=== PATIENT | male | born 1975 | race Caucasian/White ===

== ENCOUNTER 2022-10-31 15:46 | Inpatient (IN) | payer MEDICAID, SELFPAY ==
--- NOTE | ~2022-10-31 | XR_ITS ---
EXAMINATION: XR CHEST CLINICAL INFORMATION: Cough. COMPARISON: None TECHNIQUE: 2 views of the chest were obtained. FINDINGS: No significant abnormality is noted involving the heart, lungs, mediastinum, bony thorax or soft tissues. XR/XR chest 2V IMPRESSION: Unremarkable examination.
[2022-10-31 16:41] VITALS: BP 145/79; PULSE 102; RESP 18; TEMP 36.7; O2SAT 99; BMI 34.6
--- NOTE | 2022-10-31 18:15 | ED.PSYCH ---
HPI - Psych General Chief Complaint: Psychiatric Symptoms Stated Complaint: bronchitis out of meds Time Seen by Provider: 10/31/22 18:15 Source: patient Mode of arrival: ambulatory Limitations: no limitations History of Present Illness HPI Narrative: 47-year-old male presents for psychiatric evaluation, states that he is paranoid, is suicidal, and has upper respiratory symptoms consistent with bronchitis. Patient states that he has not been taking his medications as directed, and was just discharged from [facility] psychiatric unit. complaint: suicidal ideation and feels depressed Onset (ago): year(s) Duration: constant History of same: Yes Associated psychiatric symptoms: depression and suicidal ideation Associated symptoms: denies other symptoms Treatments prior to arrival: none If self harm: admits thoughts of self harm and has plan Related Data Home Medications Medication Instructions Recorded Confirmed folic acid 1 mg tablet 1 tab PO DAILY 10/31/22 10/31/22 hydroxyzine pamoate 25 mg capsule 3 cap PO BEDTIME 10/31/22 10/31/22 hydroxyzine pamoate 50 mg capsule 1 cap PO BID 10/31/22 10/31/22 Allergies Allergy/AdvReac Type Severity Reaction Status Date / Time No Known Allergies Allergy Unverified 08/17/20 15:46 [No Known Allergies*] Review of Systems Review of Systems: Constitutional: No Fever, No Chills ENT/Mouth: No Ear Pain, No Nasal Congestion, No sore throat Eyes: No Eye Pain, No Swelling, No Redness Cardiovascular: No Chest Pain, No SOB Respiratory: Positive Cough, positive wheezing, No Sputum, No Dyspnea Gastrointestinal: No Nausea, No Vomiting, No Diarrhea, No Hematochezia, No Melena Genitourinary: No Dysuria, No Urinary Frequency, No Hematuria Musculoskeletal: No Myalgias Skin: No Skin Lesions, No rash Neuro: No Weakness, No Numbness, No Paresthesias, No Dizziness, No Headache Psych: positive Anxiety, positive Depression, positive SI, positive polysubstance abuse Heme/Lymph: No Lymphadenopathy Endocrine: No Polyuria, No Polydipsia Yes all other systems are reviewed and are negative [facility] Past Medical History Attestation statement: The following information was validated with the patient. Source: old records reviewed Social History Social History Advance Directives: No Advance Directives Information Provided: No Physical Exam Vital Signs: Vital Signs: Last Vital Signs Temp 97.2 F 11/01/22 01:52 Pulse 75 11/01/22 01:52 Resp 16 11/01/22 01:52 BP 139/91 H 11/01/22 01:52 Pulse Ox 98 11/01/22 01:52 O2 Del Method 11/01/22 01:52 BMI result Body Mass Index 34.6 Appearance: Alert. Oriented X3. No acute distress. Eyes: Pupils equal, round and reactive to light. ENT: Pharynx normal. Neck: Normal inspection. Neck supple. CVS: Normal heart rate and rhythm. Pulses normal. Respiratory: No respiratory distress. Expiratory wheezing throughout. Abdomen: Soft and nontender. Obese. Skin: Skin warm and dry. Normal skin color. Normal skin turgor. Extremities: No lower extremity edema. Gait well-balanced well coordinated. Neuro: No motor deficit. No sensory deficit. Cranial nerves 2-12 intact. Course Course Course Narrative: 47-year-old male presents for upper respiratory symptoms and suicidal ideation plan. Patient was just discharged from [facility], states that he has not been using his albuterol or any other medications that were prescribed to him. Patient does smoke, and states to have a cough. Does not report fevers, chills, abdominal pain, abdominal distention, dysuria, hematuria, headaches or weakness. He does report substance use, he is to use crack cocaine. Will order labs, crisis consult and chest x-ray. Chest x-ray negative for acute findings. I did give patient albuterol treatment for expiratory wheezing. Do not feel that antibiotics are appropriate at this time for URI. Strep influenza COVID negative. Patient does have a positive UTI with esterase but is declining STI testing. I do not feel that this needs to be treated with antibiotics, as there is no urine bacteria or nitrites. 23:57 patient medically cleared, N consult pending. Physician observation at this time. MDM - Psych Differential Diagnosis Differential diagnosis: Likely suicidal ideation, depression, drug-induced psychotic disorder, acute anxiety and substance abuse Medical Records Attestation: I reviewed the patient's medical records. Lab Data Attestation: I reviewed the patient's lab results. Result diagrams: 10/31/22 18:25 10/31/22 18:25 Labs: Lab Results 10/31/22 10/31/2210/31/22 Range/Units 18:25 18:25 18:25 WBC 8.2 (4.8-10.8) X10*3/uL RBC 4.06 L (4.60-5.80) X10*6/uL Hgb 13.2 L (14.0-18.0) g/dl Hct 39.5 L (42.0-52.0) % MCV 97.3 (80.0-98.0) fL MCH 32.5 (27.0-33.0) pg MCHC 33.4 (31.0-36.0) g/dl RDW 13.2 (11.0-16.0) % Plt Count 392 (160-400) X10*3/uL MPV 9.3 L (9.4-12.4) fL Immature Gran % (Auto) 0.2 (0.0-0.4) % Neut % (Auto) 78.0 H (45-73) % Lymph % (Auto) 15.2 L (20-40) % Clayton % (Auto) 6.0 (2-11) % Eos % (Auto) 0.5 (0-4) % Baso % (Auto) 0.1 (0-2) % Lymph # (Auto) 1.2 (1.2-4.9) X10*3/uL [place] # (Auto) 0.5 (0.1-1.2) X10*3/uL Eos # (Auto) 0.0 (0.0-0.4) X10*3/uL Baso # (Auto) 0.0 (0.0-0.2) X10*3/uL Abs Immat Gran (auto) 0.02 (0.00-0.03) X10*3/uL Absolute Neuts (auto) 6.4 (2.0-8.3) x10*3/uL Absolute Nucleated RBC 0.000 (0.0-0.012) X10*3/uL Nucleated RBC % (auto) 0.0 (0.0-0.2) /100WBC Sodium 134 L (135-145) mmol/L Potassium 4.0 (3.3-5.1) mmol/L Chloride 102 (96-108) mmol/L Carbon Dioxide 27 (22-29) mmol/L Anion Gap 9 L (12-20) BUN 9 (9-16) mg/dL Creatinine 1.02 (0.5-1.4) mg/dL Estim Creat Clear Calc 94.5 Estimated GFR > 60 Random Glucose 113 (60-115) mg/dL Calcium 9.3 (8.4-10.2) mg/dL Total Bilirubin 0.2 (0.0-1.0) mg/dL AST 20 (5-37) U/L ALT 23 (0-40) U/L Alkaline Phosphatase 80 (39-117) U/L Total Protein 7.2 (6.5-8.0) g/dL Albumin 4.1 (3.5-5.0) g/dL Urine Color Urine Appearance Urine pH (5.0-9.0) Ur Specific [place] (1.005-1.025) Urine Protein (Neg-Trace) mg/dL Urine Glucose (UA) (Negative) mg/dL Urine Ketones (Negative) mg/dL Urine Blood (Negative) Urine Nitrite (Negative) Ur Leukocyte Esterase (Negative) Urine RBC (0-2) /HPF Urine WBC (0-5) /HPF Ur Squamous Epith Cells (0-2) /HPF Urine Bacteria (None Seen) Hyaline Casts (0-2) /LPF Urine Opiates Screen (Not Detect) Urine Fentanyl Screen (Not Detect) Ur Barbiturates Screen (Not Detect) Ur Phencyclidine Scrn (Not Detect) Ur Amphetamines Screen (Not Detect) U Benzodiazepines Scrn (Not Detect) Urine Cocaine Screen (Not Detect) U Marijuana (THC) Screen (Not Detect) Ethyl Alcohol < 10 mg/dL Influenza Type A (PCR) (Negative) Influenza Type B (PCR) (Negative) RSV RNA Qual (PCR) (Negative) SARS-CoV-2 RNA (RT-PCR) (Negative) S. pyogenes GrpA SHANNA (Negative) 10/31/22 10/31/22 10/31/22 Range/Units 18:26 18:27 19:20 WBC (4.8-10.8) X10*3/uL RBC (4.60-5.80) X10*6/uL Hgb (14.0-18.0) g/dl Hct (42.0-52.0) % MCV (80.0-98.0) fL MCH (27.0-33.0) pg MCHC (31.0-36.0) g/dl RDW (11.0-16.0) % Plt Count (160-400) X10*3/uL MPV (9.4-12.4) fL Immature Gran % (Auto) (0.0-0.4) % Neut % (Auto) (45-73) % Lymph % (Auto) (20-40) % [place] % (Auto) (2-11) % Eos % (Auto) (0-4) % Baso % (Auto) (0-2) % Lymph # (Auto) (1.2-4.9) X10*3/uL [place] # (Auto) (0.1-1.2) X10*3/uL Eos # (Auto) (0.0-0.4) X10*3/uL Baso # (Auto) (0.0-0.2) X10*3/uL Abs Immat Gran (auto) (0.00-0.03) X10*3/uL Absolute Neuts (auto) (2.0-8.3) x10*3/uL Absolute Nucleated RBC (0.0-0.012) X10*3/uL Nucleated RBC % (auto) (0.0-0.2) /100WBC Sodium (135-145) mmol/L Potassium (3.3-5.1) mmol/L Chloride (96-108) mmol/L Carbon Dioxide (22-29) mmol/L Anion Gap (12-20) BUN (9-16) mg/dL Creatinine (0.5-1.4) mg/dL Estim Creat Clear Calc Estimated GFR Random Glucose (60-115) mg/dL Calcium (8.4-10.2) mg/dL Total Bilirubin (0.0-1.0) mg/dL AST (5-37) U/L ALT (0-40) U/L Alkaline Phosphatase (39-117) U/L Total Protein (6.5-8.0) g/dL Albumin (3.5-5.0) g/dL Urine Color Yellow Urine Appearance Clear Urine pH 6.5 (5.0-9.0) Ur Specific [place] 1.020 (1.005-1.025) Urine Protein Negative (Neg-Trace) mg/dL Urine Glucose (UA) Negative (Negative) mg/dL Urine Ketones Trace (Negative) mg/dL Urine Blood Negative (Negative) Urine Nitrite Negative (Negative) Ur Leukocyte Esterase Small (1+) H (Negative) Urine RBC 0-2 (0-2) /HPF Urine WBC 6-10 H (0-5) /HPF Ur Squamous Epith Cells 0-2 (0-2) /HPF Urine Bacteria None Seen (None Seen) Hyaline Casts 0-2 (0-2) /LPF Urine Opiates Screen (Not Detect) Urine Fentanyl Screen (Not Detect) Ur Barbiturates Screen (Not Detect) Ur Phencyclidine Scrn (Not Detect) Ur Amphetamines Screen (Not Detect) U Benzodiazepines Scrn (Not Detect) Urine Cocaine Screen (Not Detect) U Marijuana (THC) Screen (Not Detect) Ethyl Alcohol mg/dL Influenza Type A (PCR) NEGATIVE (Negative) Influenza Type B (PCR) NEGATIVE (Negative) RSV RNA Qual (PCR) NEGATIVE (Negative) SARS-CoV-2 RNA (RT-PCR) NEGATIVE (Negative) S. pyogenes GrpA SHANNA Negative (Negative) 10/31/22 Range/Units 19:20 WBC (4.8-10.8) X10*3/uL RBC (4.60-5.80) X10*6/uL Hgb (14.0-18.0) g/dl Hct (42.0-52.0) % MCV (80.0-98.0) fL MCH (27.0-33.0) pg MCHC (31.0-36.0) g/dl RDW (11.0-16.0) % Plt Count (160-400) X10*3/uL MPV (9.4-12.4) fL Immature Gran % (Auto) (0.0-0.4) % Neut % (Auto) (45-73) % Lymph % (Auto) (20-40) % Clayton % (Auto) (2-11) % Eos % (Auto) (0-4) % Baso % (Auto) (0-2) % Lymph # (Auto) (1.2-4.9) X10*3/uL Clayton # (Auto) (0.1-1.2) X10*3/uL Eos # (Auto) (0.0-0.4) X10*3/uL Baso # (Auto) (0.0-0.2) X10*3/uL Abs Immat Gran (auto) (0.00-0.03) X10*3/uL Absolute Neuts (auto) (2.0-8.3) x10*3/uL Absolute Nucleated RBC (0.0-0.012) X10*3/uL Nucleated RBC % (auto) (0.0-0.2) /100WBC Sodium (135-145) mmol/L Potassium (3.3-5.1) mmol/L Chloride (96-108) mmol/L Carbon Dioxide (22-29) mmol/L Anion Gap (12-20) BUN (9-16) mg/dL Creatinine (0.5-1.4) mg/dL Estim Creat Clear Calc Estimated GFR Random Glucose (60-115) mg/dL Calcium (8.4-10.2) mg/dL Total Bilirubin (0.0-1.0) mg/dL AST (5-37) U/L ALT (0-40) U/L Alkaline Phosphatase (39-117) U/L Total Protein (6.5-8.0) g/dL Albumin (3.5-5.0) g/dL Urine Color Urine Appearance Urine pH (5.0-9.0) Ur Specific [place] (1.005-1.025) Urine Protein (Neg-Trace) mg/dL Urine Glucose (UA) (Negative) mg/dL Urine Ketones (Negative) mg/dL Urine Blood (Negative) Urine Nitrite (Negative) Ur Leukocyte Esterase (Negative) Urine RBC (0-2) /HPF Urine WBC (0-5) /HPF Ur Squamous Epith Cells (0-2) /HPF Urine Bacteria (None Seen) Hyaline Casts (0-2) /LPF Urine Opiates Screen Not Detected (Not Detect) Urine Fentanyl Screen Not Detected (Not Detect) Ur Barbiturates Screen Not Detected (Not Detect) Ur Phencyclidine Scrn Not Detected (Not Detect) Ur Amphetamines Screen Not Detected (Not Detect) U Benzodiazepines Scrn Not Detected (Not Detect) Urine Cocaine Screen POSITIVE H (Not Detect) U Marijuana (THC) Screen POSITIVE H (Not Detect) Ethyl Alcohol mg/dL Influenza Type A (PCR) (Negative) Influenza Type B (PCR) (Negative) RSV RNA Qual (PCR) (Negative) SARS-CoV-2 RNA (RT-PCR) (Negative) S. pyogenes GrpA SHANNA (Negative) Imaging Data Chest x-ray: Attestation: I personally reviewed and interpreted this imaging study as follows: Radiologist's impression: EXAMINATION: XR CHEST CLINICAL INFORMATION: Cough. COMPARISON: None TECHNIQUE: 2 views of the chest were obtained. FINDINGS: No significant abnormality is noted involving the heart, lungs, mediastinum, bony thorax or soft tissues. XR/XR chest 2V IMPRESSION: Unremarkable examination. Discharge Plan Discharge Clinical Impression: Depression, Substance abuse Patient Disposition: Still a Patient Instructions: Depression (ED), Polysubstance Abuse (ED) Additional Instructions: Consider detox. Follow-up with outpatient psychiatry Thank you for choosing this emergency department for evaluation. Please follow-up with primary care physician as needed. Return to the emergency department for any new, concerning, or worsening symptoms. Prescriptions: No Action hydroxyzine pamoate 50 mg capsule 1 cap PO BID folic acid 1 mg tablet 1 tab PO DAILY hydroxyzine pamoate 25 mg capsule 3 cap PO BEDTIME Interventions: [place]-Suicide Risk Severity Scale Last Done: 10/31/22 23:41
[2022-10-31 18:32] LABS: MANUAL DIFF FLAG NO
[2022-10-31 18:40] LABS: Basophils Percent Auto 0.1 % (0-2); Eosinophils Percent Auto 0.5 % (0-4); Hematocrit 39.5 % (42.0-52.0); Hemoglobin 13.2 g/dl (14.0-18.0); Imm Gran Abs Auto 0.02 X10*3/uL (0.00-0.03); Imm Gran Pct Auto 0.2 % (0.0-0.4); Lymphocytes Absolute Auto 1.2 X10*3/uL (1.2-4.9); Lymphocytes Percent Auto 15.2 % (20-40); Mean Corpuscular HGB Conc 33.4 g/dl (31.0-36.0); Mean Corpuscular Hemoglobin 32.5 pg (27.0-33.0); Mean Corpuscular Volume 97.3 fL (80.0-98.0); Mean Platelet Volume 9.3 fL (9.4-12.4); Monocytes Absolute Auto 0.5 X10*3/uL (0.1-1.2); Neutrophils Absolute Auto 6.4 x10*3/uL (2.0-8.3); Platelet Count 392 X10*3/uL (160-400); Red Blood Count 4.06 X10*6/uL (4.60-5.80); Red Cell Distribution Width 13.2 % (11.0-16.0); White Blood Count 8.2 X10*3/uL (4.8-10.8)
[2022-10-31 18:43] LABS: Strep A Nucleic Acid Negative (Negative)
[2022-10-31 18:49] LABS: Ethanol < 10 mg/dL
[2022-10-31 18:51] LABS: Alanine Aminotransferase 23 U/L (0-40); Albumin Level 4.1 g/dL (3.5-5.0); Alkaline Phosphatase 80 U/L (39-117); Anion Gap 9 (12-20); Aspartate Amino Transferase 20 U/L (5-37); Bilirubin Total 0.2 mg/dL (0.0-1.0); Blood Urea Nitrogen 9 mg/dL (9-16); Calcium 9.3 mg/dL (8.4-10.2); Carbon Dioxide 27 mmol/L (22-29); Chloride 102 mmol/L (96-108); Creatinine Clr Calc Pharmacy 94.5; Estimated Glomerular Filt Rate > 60; Glucose Random 113 mg/dL (60-115); Sodium 134 mmol/L (135-145); Total Protein 7.2 g/dL (6.5-8.0)
[2022-10-31 19:12] LABS: Influenza A PCR NEGATIVE (Negative); Influenza B PCR NEGATIVE (Negative); Resp Syncy Virus RNA Qual PCR NEGATIVE (Negative); SARS COV2 PCR INHOUSE NEGATIVE (Negative)
[2022-10-31 19:27] LABS: Appearance Urine Clear; Color Urine Yellow; Glucose Urine UA Negative (Negative); Leukocyte Esterase Urine Small (1+) (Negative); Nitrite Urine Negative (Negative); PH 6.5 (5.0-9.0); UMIC TRIGGER UA YES; Urine Blood Negative (Negative); Urine Ketones Trace mg/dL (Negative); Urine Protein Negative (Neg-Trace)
[2022-10-31 19:32] LABS: Bacteria Urine None Seen (None Seen); Hyaline Casts Urine 0-2 /LPF (0-2); RBC Urine 0-2 /HPF (0-2); Squamous Epithelial Cell Urine 0-2 /HPF (0-2)
[2022-10-31 19:40] LABS: Amphetamine Screen Urine Not Detected (Not Detect); Barbiturates, Urine Not Detected (Not Detect); Benzodiazepines Screen Urine Not Detected (Not Detect); Cannabinoid Screen Urine POSITIVE (Not Detect); Cocaine Screen Urine POSITIVE (Not Detect); Fentanyl, urine Not Detected (Not Detect); Opiate Screen Urine Not Detected (Not Detect); Phencyclidine Screen Urine Not Detected (Not Detect)
[2022-11-01 01:52] VITALS: BP 139/91; PULSE 75; RESP 16; TEMP 36.2; O2SAT 98
--- NOTE | 2022-11-01 06:41 | PC.NURSE ---
Patient slept through the night, no distress observed/reported, [facility] referral completed/confirmed/pending ETA, med rec completed/JAN active, behavior non concerning at this time, VSS, will continue to monitor.
[2022-11-01] MEDS: Albuterol Sulfate 90 MCG 8 GM INHALER 1 PUFF INHALE ×2 (09:07→14:51)
[2022-11-01] MEDS: hydrOXYzine HCL 50 MG TABLET PO ×2 (09:07→14:51)
[2022-11-01] MEDS: Folic Acid 1 MG TABLET PO (09:07)
[2022-11-01] MEDS: Nicotine Polacrilex 2 MG GUM BUCCAL (10:38)
--- NOTE | 2022-11-01 12:05 | ECG_ITS ---
Test Reason : CLEARANCE Blood Pressure : / mmHG Vent. Rate : 069 BPM Atrial Rate : 069 BPM P-R Int : 118 ms QRS Dur : 084 ms QT Int : 384 ms P-R-T Axes : 044 051 034 degrees QTc Int : 411 ms Normal sinus rhythm Normal ECG No previous ECGs available Referred By: Rustam Watson Electronically Signed By:Greg Shepard
[2022-11-01 13:48] VITALS: BP 121/84; PULSE 83; RESP 16; O2SAT 98
[2022-11-01 15:59] LABS: Estimated Average Glucose 100 mg/dL; Hemoglobin A1c % 5.1 %
[2022-11-01] MEDS: Omeprazole 20 MG CAPSULE.DR PO (17:37)
[2022-11-01 18:00] VITALS: BP 138/86; PULSE 86; RESP 14; TEMP 36.1
[2022-11-01] MEDS: Loratadine 10 MG TABLET PO (18:28)
[2022-11-01] MEDS: Nicotine Polacrilex 2 MG GUM 4 MG BUCCAL (18:48)
[2022-11-01] MEDS: Fluticasone Propionate Nasal 16 GM SPRAY 1 SPRAY NOSTRIL-B (18:48)
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
[2022-11-01] MEDS: hydrOXYzine HCL 25 MG TABLET 75 MG PO (21:12)
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
[2022-11-02 07:55] LABS: Cholesterol 165 mg/dL; HDL Cholesterol 41 mg/dL; LDL Cholesterol Calculated 102 mg/dl; Triglycerides 111 mg/dL
[2022-11-02 10:01] VITALS: BP 127/82; PULSE 90; RESP 18; TEMP 36.6; O2SAT 98
[2022-11-02] MEDS: Loratadine 10 MG TABLET PO (10:07)
[2022-11-02] MEDS: Folic Acid 1 MG TABLET PO (10:09)
[2022-11-02] MEDS: hydrOXYzine HCL 50 MG TABLET PO ×2 (10:10→13:41)
[2022-11-02] MEDS: Fluticasone Propionate Nasal 16 GM SPRAY 1 SPRAY NOSTRIL-B (10:11)
[2022-11-02] MEDS: Artificial Tears 15 ML DROPS 2 DROP EYE-LEFT ×2 (10:11→14:15)
[2022-11-02] MEDS: Albuterol Sulfate 90 MCG 8 GM INHALER 1 PUFF INHALE ×2 (10:27→17:21)
[2022-11-02] MEDS: Perphenazine 4 MG TABLET PO ×2 (12:02→20:04)
[2022-11-02] MEDS: Nicotine Polacrilex 2 MG GUM 4 MG BUCCAL ×3 (12:02→20:08)
[2022-11-02 12:07] VITALS: BP 120/81; PULSE 103; TEMP 36.5
[2022-11-02 16:22] VITALS: BP 136/57; PULSE 96; RESP 20; TEMP 36.4; O2SAT 99
[2022-11-02 18:29] VITALS: BP 126/68; PULSE 90; RESP 20; TEMP 36.7; O2SAT 99
[2022-11-02] MEDS: hydrOXYzine HCL 25 MG TABLET 75 MG PO (20:04)
[2022-11-02] MEDS: Albuterol Sulfate 90 MCG 8 GM INHALER 2 PUFF INHALE (21:08)
[2022-11-03 06:00] VITALS: BP 112/87; PULSE 95; RESP 16; TEMP 36.8; O2SAT 99
[2022-11-03] MEDS: Sodium Chloride 0.65 % Nasal 44 ML SPRBTL 1 SPRAY NOSTRIL-B ×5 (06:24→19:07)
[2022-11-03] MEDS: Loratadine 10 MG TABLET PO (08:24)
[2022-11-03] MEDS: Omeprazole 20 MG CAPSULE.DR PO (08:24)
[2022-11-03] MEDS: Folic Acid 1 MG TABLET PO (08:24)
[2022-11-03] MEDS: Perphenazine 4 MG TABLET PO ×2 (08:24→19:08)
[2022-11-03] MEDS: hydrOXYzine HCL 50 MG TABLET PO ×2 (08:24→14:10)
--- NOTE | 2022-11-03 09:38 | HO.PSYCHPN ---
Subjective Subjective Date of Service: 11/03/22 Reason For Visit: SI paranoia Subjective Notes: Conditional Voluntary Healthcare Proxy: No Guardianship: No Medical Problems Affecting Mental Status: No Interim History: Feels trilafon might be helping but feels congestion- wonders if could be s/e covid test negative- may have cold Also asked for valium- told him that is not a good idea Medication Compliance: Yes Side effects from medications: Yes (? congestion) Attending Groups: Yes Review of Systems Review of Systems: co congestion in chest area Mental Status Exam Mental Status Exam Narrative: casually dressed, good eye contact less hyper today Patient Appearance: Well Grooomed and Appropriate Patient Orientation: Person, Place, Time and Situation Level of Consciousness: Awake and Appropriate Patient Behavior: Appropriate, Talkative and Hyperactive Mood Description: Calm Affect Description: Euphoric Patient Cognition Impaired: No Ability to Follow Directions: Good Speech Pattern: Clear Hallucinations: None Delusions: Paranoid Ideation Thought Process: Intact and Racing Thought Content: positive for Tangential, positive for Suicidal Ideation (not since inpatient) and positive for Homicidal Ideation (still might have due to PI) Depressive Symptoms: Muscle Tension, Difficulty Sleeping and Thoughts of /Suicide Abnormal Motor Activity Signs and Symptoms: Restlessness Judgement: Fair Diagnostics Vital Signs (24Hr): Vital Signs - 24 hr 11/02/22 10:01 11/02/22 12:07 11/02/22 16:22 Temperature 97.8 F 97.7 F 97.6 F Pulse Rate 90 103 H 96 Respiratory Rate 18 20 Blood Pressure 127/82 120/81 136/57 L Pulse Oximetry 98 99 Oxygen Delivery Method Room Air Room Air 11/02/22 18:29 11/03/22 06:00 Temperature 98.1 F 98.3 F Pulse Rate 90 95 Respiratory Rate 20 16 Blood Pressure 126/68 112/87 Pulse Oximetry 99 99 Oxygen Delivery Method Room Air Room Air BMI result Body Mass Index 34.6 Labs Results: 10/31/22 18:25 10/31/22 18:25 Labs: Laboratory Results - last 48 hr 10/31/22 11/02/22 18:25 07:09 Estimat Average Glucose 100 Hemoglobin A1c % 5.1 Triglycerides 111 Cholesterol 165 LDL Cholesterol, Calc 102 HDL Cholesterol 41 Imaging Radiology Impressions: ITS Impressions Chest X-Ray 10/31/22 20:27 IMPRESSION: Unremarkable examination. Medications Medications Current Medications Acetaminophen (Acetaminophen 325 Mg Tablet) 650 mg PO Q6H PRN PRN Reason: Headache/Pain Mild Scale (1-3) Al Hydroxide/Mg Hydroxide (Magnesium Hydrox/Alum Hydrox 30 Ml Oral.Susp) 30 ml PO Q6H PRN PRN Reason: Heartburn/Nausea Albuterol Sulfate (Albuterol Sulfate 90 Mcg 8 Gm Inhaler) 2 puff INHALE Q4H PRN PRN Reason: Shortness of Breath Last Admin: 11/02/22 21:08 Dose: 2 puff Artificial Tears (Artificial Tears 15 Ml Drops) 2 drop EYE-LEFT Q4H PRN PRN Reason: Dry Eyes Last Admin: 11/02/22 14:15 Dose: 2 drop Fluticasone Propionate (Fluticasone Propionate Nasal 16 Gm [place]) 2 spray NOSTRIL-B DAILY PRN PRN Reason: nasal congetstion Folic Acid (Folic Acid 1 Mg Tablet) 1 mg PO DAILY [facility] Last Admin: 11/03/22 08:24 Dose: 1 mg Hydroxyzine HCl (Hydroxyzine Hcl 25 Mg Tablet) 75 mg PO BEDTIME [facility] Last Admin: 11/02/22 20:04 Dose: 75 mg Hydroxyzine HCl (Hydroxyzine Hcl 50 Mg Tablet) 50 mg PO BID@0900,1400 [facility] Last Admin: 11/03/22 08:24 Dose: 50 mg Loratadine (Loratadine 10 Mg Tablet) 10 mg PO DAILY [facility] Last Admin: 11/03/22 08:24 Dose: 10 mg Lorazepam (Lorazepam 1 Mg Tablet) 1 mg PO Q2H PRN PRN Reason: CIWA 6-10 Lorazepam (Lorazepam 1 Mg Tablet) 2 mg PO Q2H PRN PRN Reason: CIWA 11 and above Magnesium Hydroxide (Milk Of Magnesia 30 Ml Oral.Susp) 30 ml PO DAILY PRN PRN Reason: Constipation Multi-Ingred Cream/Lotion/Oil/Oint (Artificial Tears Ophth Oint 3.5 Gm Tube) 1 appl EYE-LEFT TID PRN; Protocol PRN Reason: eye drynes Nicotine (Nicotine 21 Mg Patch.Td24) 21 mg TRANSDERMA DAILY PRN PRN Reason: smoking cessation Nicotine Polacrilex (Nicotine Polacrilex 2 Mg Gum) 4 mg BUCCAL Q2H PRN PRN Reason: Nicotine Cravings Last Admin: 11/02/22 20:08 Dose: 4 mg Omeprazole (Omeprazole 20 Mg Capsule.Dr) 20 mg PO DAILY [facility] Last Admin: 11/03/22 08:24 Dose: 20 mg Perphenazine (Perphenazine 4 Mg Tablet) 4 mg PO BID [facility] Last Admin: 11/03/22 08:24 Dose: 4 mg Sodium Chloride (Sodium Chloride 0.65 % Nasal 44 Ml Sprbtl) 1 spray NOSTRIL-B Q1H PRN PRN Reason: Congestion Last Admin: 11/03/22 08:29 Dose: 1 spray Trazodone HCl (Trazodone Hcl 50 Mg Tablet) 50 mg PO BEDTIME PRN PRN Reason: Insomnia Allergies Allergies Allergy/AdvReac Type Severity Reaction Status Date / Time No Known Allergies Allergy Unverified 11/02/22 20:59 [No Known Allergies*] Assessment & Plan Assessment & Plan (1) Substance abuse: Status: Acute Code(s): F19.10 - Other psychoactive substance abuse, uncomplicated Assessment and Plan: urine not positive for opiate- watch for opiate withdrawl? 11/03 dced ciwa - no sys of withdrawl at all (2) Mood disorder: Status: Acute Code(s): F39 - Unspecified mood [affective] disorder Assessment and Plan: add in perphenazine- for pi (3) Post-traumatic stress disorder, chronic: Status: Acute Code(s): F43.12 - Post-traumatic stress disorder, chronic Assessment and Plan: vistaril seems to help this somewhat Plan add perphenazine for PI find out dosing/timing of monthly abilify Group/mileu therapy Social work assessment after weekend for resource building I spent minutes with the patient and/or on the patient floor today, greater than?50% of which was spent counseling/coordinating care. Patient educated on: medication risk/benefits Informed Consent: understands Reason for contiued inpatient stay Substantial Risk for: harm to others and rapid decompensation
[2022-11-03 10:27] LABS: COVID-19 Test Negative (Negative); IDNOW Serial# 16C4AD1C
[2022-11-03] MEDS: Nicotine Polacrilex 2 MG GUM 4 MG BUCCAL ×2 (11:59→19:08)
[2022-11-03] MEDS: Artificial Tears 15 ML DROPS 2 DROP EYE-LEFT ×2 (11:59→19:07)
[2022-11-03] MEDS: Albuterol Sulfate 90 MCG 8 GM INHALER 2 PUFF INHALE ×2 (14:20→19:09)
[2022-11-03 18:00] VITALS: BP 142/85; PULSE 105; TEMP 36.4; O2SAT 98
[2022-11-03] MEDS: hydrOXYzine HCL 25 MG TABLET 75 MG PO (19:08)
--- NOTE | 2022-11-03 20:13 | HO.ADDICTCON ---
History of Present Illness Date of Service: 11/03/2022 Chief Complaint: SI paranoia Reason for Consult: NEFTALI--considering MOUD HPI Narrative: Patient is a 47 year old male currently admitted to unit with reported SI and paranoia in the context of recurrence of drug use. Consult requested as patient expressed interest in starting buprenorphine to address opioid use. Patient seen on M5. Pleasant and engaged in interview. He reports he has struggled with alcohol, cocaine and heroin for most of his life. Reports multiple admissions to [facility] for ETOH and opioids, but has never been on medications for OUD. He states that he has been increasing use recently and does not like that he is experiencing cravings to use and feeling mild withdrawal sx when he is not using(upset stomach and restlessness). Using appox 5 bags IN. Denies any history of IVDU. Denies any history of OD. States his last use of opioids was prior to [facility] admission in October. Past Psychiatric History: [facility] - started on abilify monthly injection denies hx of od felt meds [facility] had him on vistaril and abilify where helpful for insomnia, anxiety and paranoia only does mj with meds, won't drink on meds Review of Systems Constitutional: Reports as per HPI and Reports no additional constitutional complaints Diagnostics Vital Signs (24Hr): Vital Signs - 24 hr 11/03/22 06:00 Temperature 98.3 F Pulse Rate 95 Respiratory Rate 16 Blood Pressure 112/87 Pulse Oximetry 99 Oxygen Delivery Method Room Air BMI result Body Mass Index 34.6 Labs Results: 10/31/22 18:25 10/31/22 18:25 Labs: Laboratory Results - last 48 hr 11/02/22 11/03/22 07:09 10:10 Triglycerides 111 Cholesterol 165 LDL Cholesterol, Calc 102 HDL Cholesterol 41 COVID-19 ([facility]) Negative COVID-19 Clin Com See Note Imaging Radiology Impressions: ITS Impressions Chest X-Ray 10/31/22 20:27 IMPRESSION: Unremarkable examination. Mental Status Exam Mental Status Exam Patient Appearance: Well Grooomed and Appropriate Level of Consciousness: Awake and Appropriate Patient Behavior: Appropriate and Talkative Mood Description: Calm Affect Description: Calm Medications Medications Current Medications Acetaminophen (Acetaminophen 325 Mg Tablet) 650 mg PO Q6H PRN PRN Reason: Headache/Pain Mild Scale (1-3) Al Hydroxide/Mg Hydroxide (Magnesium Hydrox/Alum Hydrox 30 Ml Oral.Susp) 30 ml PO Q6H PRN PRN Reason: Heartburn/Nausea Albuterol Sulfate (Albuterol Sulfate 90 Mcg 8 Gm Inhaler) 2 puff INHALE Q4H PRN PRN Reason: Shortness of Breath Last Admin: 11/03/22 19:09 Dose: 2 puff Artificial Tears (Artificial Tears 15 Ml Drops) 2 drop EYE-LEFT Q4H PRN PRN Reason: Dry Eyes Last Admin: 11/03/22 19:07 Dose: 2 drop Fluticasone Propionate (Fluticasone Propionate Nasal 16 Gm [place]) 2 spray NOSTRIL-B DAILY PRN PRN Reason: nasal congetstion Folic Acid (Folic Acid 1 Mg Tablet) 1 mg PO DAILY [facility] Last Admin: 11/03/22 08:24 Dose: 1 mg Hydroxyzine HCl (Hydroxyzine Hcl 25 Mg Tablet) 75 mg PO BEDTIME [facility] Last Admin: 11/03/22 19:08 Dose: 75 mg Hydroxyzine HCl (Hydroxyzine Hcl 50 Mg Tablet) 50 mg PO BID@0900,1400 [facility] Last Admin: 11/03/22 14:10 Dose: 50 mg Loratadine (Loratadine 10 Mg Tablet) 10 mg PO DAILY [facility] Last Admin: 11/03/22 08:24 Dose: 10 mg Lorazepam (Lorazepam 1 Mg Tablet) 1 mg PO Q2H PRN PRN Reason: CIWA 6-10 Lorazepam (Lorazepam 1 Mg Tablet) 2 mg PO Q2H PRN PRN Reason: CIWA 11 and above Magnesium Hydroxide (Milk Of Magnesia 30 Ml Oral.Susp) 30 ml PO DAILY PRN PRN Reason: Constipation Multi-Ingred Cream/Lotion/Oil/Oint (Artificial Tears Ophth Oint 3.5 Gm Tube) 1 appl EYE-LEFT TID PRN; Protocol PRN Reason: eye drynes Nicotine (Nicotine 21 Mg Patch.Td24) 21 mg TRANSDERMA DAILY PRN PRN Reason: smoking cessation Nicotine Polacrilex (Nicotine Polacrilex 2 Mg Gum) 4 mg BUCCAL Q2H PRN PRN Reason: Nicotine Cravings Last Admin: 11/03/22 19:08 Dose: 4 mg Omeprazole (Omeprazole 20 Mg Capsule.Dr) 20 mg PO DAILY [facility] Last Admin: 11/03/22 08:24 Dose: 20 mg Perphenazine (Perphenazine 4 Mg Tablet) 4 mg PO BID [facility] Last Admin: 11/03/22 19:08 Dose: 4 mg Sodium Chloride (Sodium Chloride 0.65 % Nasal 44 Ml Sprbtl) 1 spray NOSTRIL-B Q1H PRN PRN Reason: Congestion Last Admin: 11/03/22 19:07 Dose: 1 spray Trazodone HCl (Trazodone Hcl 50 Mg Tablet) 50 mg PO BEDTIME PRN PRN Reason: Insomnia Allergies Allergies Allergy/AdvReac Type Severity Reaction Status Date / Time No Known Allergies Allergy Unverified 11/02/22 20:59 [No Known Allergies*] Assessment & Plan Assessment & Plan (1) Opioid use disorder: Status: Acute Code(s): F11.90 - Opioid use, unspecified, uncomplicated Assessment and Plan: discussed suboxone --indications, side effects, dosing, goals of treatment. Discussed low dosing due to reported intermittent use. Pateint verbalized undertanding suboxone 2mg QD to start. if patient appears sedated or reporting dizziness after dose, please hold next dose and notify this technical document writer. will reassess as needed I spent ___45___ minutes with the patient and/or on the patient floor today, greater than?50% of which was spent counseling/coordinating care. [facility] Social History Social History Household Members: None Housing: Homeless Do you presently have visiting nurse or other home services: No Alcohol intake: current Patient Tobacco Use Status: Current everyday Tobacco user Tobacco use type: Cigarette Cigarettes Per Day: 1 Smoked in Last 30 Days: Yes Patient Interested in Nicotine Replacement: Yes Patient Given Instructions on How to Stop Smoking: Yes Date Education Initiated: 11/01/22 Second Hand Smoke Exposure: Yes Use of substances other than those prescribed or required for medical reasons: Yes Substance Use Type: Crack/Cocaine, Heroin, Marijuana and Opiates Substance Use Frequency: Chronic Longstanding Last Used Substance: Just Prior to Admission Last Used Substance Other:: 10/31/2022 Currently Displaying Signs/Symptoms of Drug Intoxication Withdrawal: No Any prior treatment program specific to substance use: No Have you been hit, kicked, punched, or otherwise hurt by someone within the past year? If so, by whom?: No Do you feel safe in your current relationship?: No Is there a partner from a previous relationship who is making you feel unsafe now?: No Are you made to feel afraid or neglected: No Advance Directives: No Advance Directives Information Provided: No Healthcare Proxy: No Guardian: No Do you have thoughts of harming others: None Do you have a plan to hurt others: No Plan Recently lost weight without trying: No Nutrition Risks: No Nutritional Risk Poor oral hygiene: No
[2022-11-04 06:00] VITALS: BP 129/91; PULSE 91; RESP 18
[2022-11-04] MEDS: Folic Acid 1 MG TABLET PO (08:17)
[2022-11-04] MEDS: Omeprazole 20 MG CAPSULE.DR PO (08:17)
[2022-11-04] MEDS: hydrOXYzine HCL 50 MG TABLET PO ×2 (08:17→14:09)
[2022-11-04] MEDS: Loratadine 10 MG TABLET PO (08:18)
[2022-11-04] MEDS: Buprenorphine/Naloxone 2/0.5mg FILM 1 FILM SUBLINGUAL (08:18)
[2022-11-04] MEDS: Perphenazine 4 MG TABLET PO ×2 (08:19→19:44)
[2022-11-04] MEDS: Artificial Tears 15 ML DROPS 2 DROP EYE-LEFT ×2 (08:42→14:38)
[2022-11-04] MEDS: Sodium Chloride 0.65 % Nasal 44 ML SPRBTL 1 SPRAY NOSTRIL-B ×3 (08:42→19:44)
[2022-11-04] MEDS: Albuterol Sulfate 90 MCG 8 GM INHALER 2 PUFF INHALE (08:42)
--- NOTE | 2022-11-04 10:31 | HO.PSYCHPN ---
Subjective Subjective Date of Service: 11/04/22 Reason For Visit: SI paranoia Interim History: Patient reports he is in a good mood Patient denies any SI or HI and saying that all have resolved.? Denies any withdrawal and says that he was not drinking this past week at all just that he smoked cannabis which was laced.? Patient reports that starting perphenazine was very helpful and has resolved his paranoia.? Patient described his history of paranoid thinking and it largely seems to be due to history of trauma starting in childhood and ongoing throughout his life And much of it seems to be hypervigilence; there may be an organic component as well but it is difficult to tell.? Hypertrichologist discussed risks/side-effects of med regimen, including increased risks of being on both Abilify and perphenazine and whether or not perphenazine which she finds very helpful could be enough for him.? He got Abilify Maintena IM about a week ago.? He says that after this month he will discuss with outpatient provider but perhaps he will just stick with perphenazine and see if that is enough.? Patient overall sleeps well enough.? He finds that he does wake up early in the morning and has a hard time falling back to sleep for which she agrees to have a p.r.n. dose of hydroxyzine.? Discussed history of diagnosis of bipolar disorder and patient does not seem to have discrete manic episodes, independent of substance abuse. Minimal hx of AVH which sounds to be mood congruent and he will Sometimes see a shadow out of the corner of his eye or think he hears his name called. Hypertrichologist reviewed labs with patient. Mental Status Exam Mental Status Exam Narrative: Pt is alert and oriented; behavior is cooperative, friendly and calm; patient is not in distress; dressed in casual attire, wearing glasses; adequate hygiene; mood is described as good and affect congruent, bright, calm, friendly; eye contact appropriate; Speech is normal rate, volume and prosody and not pressured; no psychomotor agitation/retardation present; thought process is organized and goal directed; Thought content is on tx; otherwise pertinent to relevant topics and without any delusional content, paranoid ideations or grandiosity; denies any SI/HI. There is no evidence of perceptual disturbance. Patients insight and judgment appear intact. Diagnostics Vital Signs (24Hr): Vital Signs - 24 hr 11/03/22 18:00 11/04/22 06:00 Temperature 97.6 F Pulse Rate 105 H 91 Respiratory Rate 18 Blood Pressure 142/85 H 129/91 H Pulse Oximetry 98 Oxygen Delivery Method Room Air Room Air BMI result Body Mass Index 34.6 Labs Results: 10/31/22 18:25 10/31/22 18:25 Labs: Laboratory Results - last 48 hr 11/03/22 10:10 COVID-19 ([facility]) Negative COVID-19 Clin Com See Note Imaging Radiology Impressions: ITS Impressions Chest X-Ray 10/31/22 20:27 IMPRESSION: Unremarkable examination. Medications Medications Current Medications Acetaminophen (Acetaminophen 325 Mg Tablet) 650 mg PO Q6H PRN PRN Reason: Headache/Pain Mild Scale (1-3) Al Hydroxide/Mg Hydroxide (Magnesium Hydrox/Alum Hydrox 30 Ml Oral.Susp) 30 ml PO Q6H PRN PRN Reason: Heartburn/Nausea Albuterol Sulfate (Albuterol Sulfate 90 Mcg 8 Gm Inhaler) 2 puff INHALE Q4H PRN PRN Reason: Shortness of Breath Last Admin: 11/04/22 08:42 Dose: 2 puff Artificial Tears (Artificial Tears 15 Ml Drops) 2 drop EYE-LEFT Q4H PRN PRN Reason: Dry Eyes Last Admin: 11/04/22 08:42 Dose: 2 drop Buprenorphine/Naloxone (Buprenorphine/Naloxone 2/0.5mg Film) 1 film SUBLINGUAL DAILY [facility] Last Admin: 11/04/22 08:18 Dose: 1 film Fluticasone Propionate (Fluticasone Propionate Nasal 16 Gm [place]) 2 spray NOSTRIL-B DAILY PRN PRN Reason: nasal congetstion Folic Acid (Folic Acid 1 Mg Tablet) 1 mg PO DAILY [facility] Last Admin: 11/04/22 08:17 Dose: 1 mg Hydroxyzine HCl (Hydroxyzine Hcl 25 Mg Tablet) 75 mg PO BEDTIME [facility] Last Admin: 11/03/22 19:08 Dose: 75 mg Hydroxyzine HCl (Hydroxyzine Hcl 50 Mg Tablet) 50 mg PO BID@0900,1400 [facility] Last Admin: 11/04/22 08:17 Dose: 50 mg Loratadine (Loratadine 10 Mg Tablet) 10 mg PO DAILY [facility] Last Admin: 11/04/22 08:18 Dose: 10 mg Lorazepam (Lorazepam 1 Mg Tablet) 1 mg PO Q2H PRN PRN Reason: CIWA 6-10 Lorazepam (Lorazepam 1 Mg Tablet) 2 mg PO Q2H PRN PRN Reason: CIWA 11 and above Magnesium Hydroxide (Milk Of Magnesia 30 Ml Oral.Susp) 30 ml PO DAILY PRN PRN Reason: Constipation Multi-Ingred Cream/Lotion/Oil/Oint (Artificial Tears Ophth Oint 3.5 Gm Tube) 1 appl EYE-LEFT TID PRN; Protocol PRN Reason: eye drynes Nicotine (Nicotine 21 Mg Patch.Td24) 21 mg TRANSDERMA DAILY PRN PRN Reason: smoking cessation Nicotine Polacrilex (Nicotine Polacrilex 2 Mg Gum) 4 mg BUCCAL Q2H PRN PRN Reason: Nicotine Cravings Last Admin: 11/03/22 19:08 Dose: 4 mg Omeprazole (Omeprazole 20 Mg Capsule.Dr) 20 mg PO DAILY [facility] Last Admin: 11/04/22 08:17 Dose: 20 mg Perphenazine (Perphenazine 4 Mg Tablet) 4 mg PO BID [facility] Last Admin: 11/04/22 08:19 Dose: 4 mg Sodium Chloride (Sodium Chloride 0.65 % Nasal 44 Ml Sprbtl) 1 spray NOSTRIL-B Q1H PRN PRN Reason: Congestion Last Admin: 11/04/22 08:42 Dose: 1 spray Trazodone HCl (Trazodone Hcl 50 Mg Tablet) 50 mg PO BEDTIME PRN PRN Reason: Insomnia Allergies Allergies Allergy/AdvReac Type Severity Reaction Status Date / Time No Known Allergies Allergy Unverified 11/02/22 20:59 [No Known Allergies*] Assessment & Plan Assessment & Plan (1) Mood disorder: Status: Acute Code(s): F39 - Unspecified mood [affective] disorder Assessment and Plan: add in perphenazine- for pi (2) Post-traumatic stress disorder, chronic: Status: Acute Code(s): F43.12 - Post-traumatic stress disorder, chronic Assessment and Plan: vistaril seems to help this somewhat (3) Substance abuse: Status: Acute Code(s): F19.10 - Other psychoactive substance abuse, uncomplicated Assessment and Plan: urine not positive for opiate- watch for opiate withdrawl? 11/03 dced ciwa - no sys of withdrawl at all Plan Patient is a 47-year-old male with history of depression, PTSD, who was recently discharged from [facility] where he was started on Abilify Maintena and now presents with SI, HI and some paranoia in the context of substance abuse. ?Patient was started on Suboxone; covering provider started him on perphenazine for continued paranoid thinking. 11/04 Patient reports being in a good mood and that perphenazine has eliminated paranoid thoughts.? Some trouble sleeping and will use hydroxyzine as a p.r.n..? Denies all SI or HI or AVH and is feeling like he is getting back to his regular self. PLAN: CV q15min checks Started Abilify Maintenna about a week ago Started on Perphenazine 4mg BID Started on Suboxone 2/0.5mg daily ADD Hydroxyzine 50mg prn for insomnia add perphenazine for PI Group/mileu therapy Social work help with planning dispo Med trials: Zyprexa: Caused hyperlipidemia, weight gain, prediabetes; patient has lost weight since. Clonidine: Not helpful Trazodone: Restless leg I spent minutes with the patient and/or on the patient floor today, greater than?50% of which was spent counseling/coordinating care. Patient educated on: diagnosis, medication risk/benefits and substance abuse Informed Consent: understands Reason for contiued inpatient stay Substantial Risk for: stable for discharge
[2022-11-04] MEDS: Nicotine Polacrilex 2 MG GUM 4 MG BUCCAL (10:54)
--- NOTE | 2022-11-04 11:48 | MHC.RECOVRN ---
Met with pt to follow up after Suboxone initiation this morning. Pt received one 2 mg film. Pt active in milieu, awake, alert, easily engages in conversation. Pt reports Suboxone has helped with cravings, denies sedation and dizziness, states I feel good with this dose. Pt denies questions or concerns at this time. Will continue to follow.
[2022-11-04 16:51] VITALS: BP 117/79; PULSE 85; RESP 18; TEMP 36.7; O2SAT 96
[2022-11-04] MEDS: hydrOXYzine HCL 25 MG TABLET 75 MG PO (19:44)
[2022-11-05] MEDS: hydrOXYzine HCL 50 MG TABLET PO ×2 (02:40→08:40)
[2022-11-05] MEDS: Sodium Chloride 0.65 % Nasal 44 ML SPRBTL 1 SPRAY NOSTRIL-B (02:58)
[2022-11-05] MEDS: Loratadine 10 MG TABLET PO (08:40)
[2022-11-05] MEDS: Folic Acid 1 MG TABLET PO (08:40)
[2022-11-05] MEDS: Buprenorphine/Naloxone 2/0.5mg FILM 1 FILM SUBLINGUAL (08:40)
[2022-11-05] MEDS: Perphenazine 4 MG TABLET PO ×2 (08:40→20:19)
[2022-11-05] MEDS: Omeprazole 20 MG CAPSULE.DR PO (08:40)
[2022-11-05 08:46] VITALS: BP 126/78; PULSE 82; RESP 16; TEMP 36.6; O2SAT 97
[2022-11-05] MEDS: Nicotine Polacrilex 2 MG GUM 4 MG BUCCAL (11:32)
--- NOTE | 2022-11-05 13:03 | MHC.RECOVRN ---
Met with pt to follow up regarding Suboxone initiation. Pt continues to deny sedation and cravings. Reports medication wore off at 8PM and pt had difficulty sleeping. Interested in increasing to BID. Pt would like to continue tx at [facility] in [facility] upon dc from . Denies questions or concerns for t/w. Discussed with Jennifer Nunez APRN.
[2022-11-05] MEDS: hydrOXYzine HCL 25 MG TABLET 50 MG PO (13:42)
--- NOTE | 2022-11-05 15:19 | P.PNPSI_ITS ---
Subjective Subjective Date of Service: 11/05/22 Reason For Visit: SI paranoia Interim History: Patient in a good mood. Some moments of being hyperverbal but able to self regulate. Patient remains friendly, cooperative and engaged. No SI or HI or AVH. Patient says paranoid thinking remains resolved. Patient also talked about substance abuse history and how he was starting to dabble with Heroin and is grateful to get on Suboxone so that he can stop this progression. Feels the p.r.n. at bedtime was very helpful and wants to continue. However he asked to be restarted on Remeron at bedtime since it has always helped him sleep; he was pleased to know that it also helped with anxiety. Patient remains focused on getting into a program and then sober living. Going to groups, appr opriate with peers and staff Mental Status Exam Mental Status Exam Narrative: Pt is alert and oriented; behavior is cooperative, friendly and calm; patient is not in distress; dressed in casual attire, wearing glasses; adequate hygiene; mood is described as good and affect congruent, bright, calm, friendly; eye contact appropriate; Speech is normal rate, volume and prosody and not p ressured; no psychomotor agitation/retardation present; thought process is organized and goal directed; Thought content is on tx; otherwise pertinent to relevant topics and without any delusional content, paranoid ideations or grandiosity; denies any SI/HI. There is no evidence of perceptual disturbance. Patients insight and judgment are fair and adequate. Diagnostics Vital Signs (24Hr): Vital Signs - 24 hr 11/04/22 16:51 11/05/22 08:46 Temperature 98.0 F 97.8 F Pulse Rate 85 82 Respiratory Rate 18 16 Blood Pressure 117/79 126/78 Pulse Oximetry 96 97 Oxygen Delivery Method Room Air Room Air BMI result Body Mass Index 34.6 Labs Results: 10/31/22 18:25 10/31/22 18:25 Imaging Radiology Impressions: ITS Impressions Chest X-Ray 10/31/22 20:27 IMPRESSION: Unremarkable examination. Medications Medications Current Medications Acetaminophen (Acetaminophen 325 Mg Tablet) 650 mg PO Q6H PRN PRN Reason: Headache/Pain Mild Scale (1-3) Al Hydroxide/Mg Hydroxide (Magnesium Hydrox/Alum Hydrox 30 Ml Oral.Susp) 30 ml PO Q6H PRN PRN Reason: Heartburn/Nausea Albuterol Sulfate (Albuterol Sulfate 90 Mcg 8 Gm Inhaler) 2 puff INHALE Q4H PRN PRN Reason: Shortness of Breath Last Admin: 11/04/22 08:42 Dose: 2 puff Artificial Tears (Artificial Tears 15 Ml Drops) 2 drop EYE-LEFT Q4H PRN PRN Reason: Dry Eyes Last Admin: 11/04/22 14:38 Dose: 2 drop Buprenorphine/Naloxone (Buprenorphine/Naloxone 2/0.5mg Film) 1 film SUBLINGUAL DAILY [facility] Last Admin: 11/05/22 08:40 Dose: 1 film Fluticasone Propionate (Fluticasone Propionate Nasal 16 Gm [place]) 2 spray NOSTRIL-B DAILY PRN PRN Reason: nasal congetstion Folic Acid (Folic Acid 1 Mg Tablet) 1 mg PO DAILY [facility] Last Admin: 11/05/22 08:40 Dose: 1 mg Hydroxyzine HCl (Hydroxyzine Hcl 50 Mg Tablet) 50 mg PO Q6H PRN PRN Reason: anxiety/insomnia Loratadine (Loratadine 10 Mg Tablet) 10 mg PO DAILY [facility] Last Admin: 11/05/22 08:40 Dose: 10 mg Magnesium Hydroxide (Milk Of Magnesia 30 Ml Oral.Susp) 30 ml PO DAILY PRN PRN Reason: Constipation Multi-Ingred Cream/Lotion/Oil/Oint (Artificial Tears Ophth Oint 3.5 Gm Tube) 1 appl EYE-LEFT TID PRN; Protocol PRN Reason: eye drynes Nicotine (Nicotine 21 Mg Patch.Td24) 21 mg TRANSDERMA DAILY PRN PRN Reason: smoking cessation Nicotine Polacrilex (Nicotine Polacrilex 2 Mg Gum) 4 mg BUCCAL Q2H PRN PRN Reason: Nicotine Cravings Last Admin: 11/05/22 11:32 Dose: 4 mg Omeprazole (Omeprazole 20 Mg Capsule.Dr) 20 mg PO DAILY [facility] Last Admin: 11/05/22 08:40 Dose: 20 mg Perphenazine (Perphenazine 4 Mg Tablet) 4 mg PO BID [facility] Last Admin: 11/05/22 08:40 Dose: 4 mg Sodium Chloride (Sodium Chloride 0.65 % Nasal 44 Ml Sprbtl) 1 spray NOSTRIL-B Q1H PRN PRN Reason: Congestion Last Admin: 11/05/22 02:58 Dose: 1 spray Allergies Allergies Allergy/AdvReac Type Severity Reaction Status Date / Time No Known Allergies Allergy Unverified 11/02/22 20:59 [No Known Allergies*] Assessment & Plan Assessment & Plan (1) Mood disorder: Status: Acute Code(s): F39 - Unspecified mood [affective] disorder Assessment and Plan: add in perphenazine- for pi (2) Post-traumatic stress disorder, chronic: Status: Acute Code(s): F43.12 - Post-traumatic stress disorder, chronic Assessment and Plan: vistaril seems to help this somewhat (3) Substance abuse: Status: Acute Code(s): F19.10 - Other psychoactive substance abuse, uncomplicated Assessment and Plan: urine not positive for opiate- watch for opiate withdrawl? 11/03 dced ciwa - no sys of withdrawl at all Plan Patient is a 47-year-old male with history of depression, PTSD, who was recently discharged from [facility] where he was started on Abilify Maintena and now presents with SI, HI and some paranoia in the context of substance abuse. ?Patient was started on Suboxone; covering provider started him on perphenazine for continued paranoid thinking. 11/04 Patient reports being in a good mood and that perphenazine has eliminated paranoid thoughts.? Some trouble sleeping and will use hydroxyzine as a p.r.n..? Denies all SI or HI or AVH and is feeling like he is getting back to his regular self. 11/05 patient remains stable, doing well. Wants to start on Remeron which helped him sleep in the past. Patient is engaged in treatment, attending groups and discussing his symptoms and struggles. Although patient has been doing well, he is at high risk for relapse and very much needs to go to a program post discharge. It is publications writer's intention to have patient remain on the unit until he gets into a program. PLAN: CV q15min checks START Remeron 7.5mg qhs for insomnia and anxiety pt was Started Abilify Maintenna about a week ago Continue Perphenazine 4mg BID Continued Suboxone 2/0.5mg daily changed Hydroxyzine to PRN's add perphenazine for paranoid thinking Group/mileu therapy Social work help with planning dispo Med trials: Zyprexa: Caused hyperlipidemia, weight gain, prediabetes; patient has lost weight since. Clonidine: Not helpful Trazodone: Restless leg I spent minutes with the patient and/or on the patient floor today, greater than?50% of which was spent counseling/coordinating care. Patient educated on: diagnosis, medication risk/benefits and substance abuse Informed Consent: understands Reason for contiued inpatient stay Substantial Risk for: stable for discharge
[2022-11-05 16:00] VITALS: BP 123/72; PULSE 89; RESP 16; TEMP 36.6; O2SAT 97
[2022-11-05] MEDS: Magnesium Hydrox/Alum Hydrox 30 ML ORAL.SUSP PO (17:42)
[2022-11-05] MEDS: Mirtazapine 7.5 MG TABLET PO (20:19)
[2022-11-05] MEDS: Albuterol Sulfate 90 MCG 8 GM INHALER 2 PUFF INHALE (20:21)
[2022-11-06] MEDS: hydrOXYzine HCL 25 MG TABLET 75 MG PO ×2 (00:35→19:33)
[2022-11-06] MEDS: Loratadine 10 MG TABLET PO (08:09)
[2022-11-06] MEDS: Buprenorphine/Naloxone 2/0.5mg FILM 1 FILM SUBLINGUAL (08:09)
[2022-11-06] MEDS: Folic Acid 1 MG TABLET PO (08:10)
[2022-11-06] MEDS: Perphenazine 4 MG TABLET PO ×2 (08:10→19:33)
[2022-11-06] MEDS: Omeprazole 20 MG CAPSULE.DR PO (08:10)
[2022-11-06 08:30] VITALS: BP 132/92; PULSE 122; RESP 18; TEMP 36.6; O2SAT 99
--- NOTE | 2022-11-06 10:31 | P.PNPSI_ITS ---
Subjective Subjective Date of Service: 11/06/22 Reason For Visit: SI paranoia Interim History: good mood overall but felt that he was having some return paranoid thoughts; agreed to prn perphenazine however was willing to see if it was more due to anxiety and try hydroxyzine first. Otherwise, sleeping better; wants hydroxyzine to be scheduled at bedtime. No SI/HI/AVH Mental Status Exam Mental Status Exam Narrative: Pt is alert and oriented; behavior is cooperative, friendly and calm; patient is not in distress; dressed in casual attire, wearing glasses; adequate hygiene; mood is described as good and affect congruent, bright, calm, friendly; eye contact appropriate; Speech is normal rate, volume and prosody and not pressured; no psychomotor agitation/retardation present; thought process is organized and goal directed; Thought content is on tx; otherwise pertinent to relevant topics and without any delusional content, paranoid ideations or grandiosity; denies any SI/HI. There is no evidence of perceptual disturbance. Patients insight and judgment are fair and adequate. Diagnostics Vital Signs (24Hr): Vital Signs - 24 hr 11/05/22 16:00 11/06/22 08:30 Temperature 97.8 F 97.8 F Pulse Rate 89 122 H Respiratory Rate 16 18 Blood Pressure 123/72 132/92 H Pulse Oximetry 97 99 Oxygen Delivery Method Room Air Room Air BMI result Body Mass Index 34.6 Labs Results: 10/31/22 18:25 10/31/22 18:25 Imaging Radiology Impressions: ITS Impressions Chest X-Ray 10/31/22 20:27 IMPRESSION: Unremarkable examination. Medications Medications Current Medications Acetaminophen (Acetaminophen 325 Mg Tablet) 650 mg PO Q6H PRN PRN Reason: Headache/Pain Mild Scale (1-3) Al Hydroxide/Mg Hydroxide (Magnesium Hydrox/Alum Hydrox 30 Ml Oral.Susp) 30 ml PO Q6H PRN PRN Reason: Heartburn/Nausea Last Admin: 11/05/22 17:42 Dose: 30 ml Albuterol Sulfate (Albuterol Sulfate 90 Mcg 8 Gm Inhaler) 2 puff INHALE Q4H PRN PRN Reason: Shortness of Breath Last Admin: 11/05/22 20:21 Dose: 2 puff Artificial Tears (Artificial Tears 15 Ml Drops) 2 drop EYE-LEFT Q4H PRN PRN Reason: Dry Eyes Last Admin: 11/04/22 14:38 Dose: 2 drop Buprenorphine/Naloxone (Buprenorphine/Naloxone 2/0.5mg Film) 1 film SUBLINGUAL DAILY [facility] Last Admin: 11/06/22 08:09 Dose: 1 film Fluticasone Propionate (Fluticasone Propionate Nasal 16 Gm [place]) 2 spray NOSTRIL-B DAILY PRN PRN Reason: nasal congetstion Folic Acid (Folic Acid 1 Mg Tablet) 1 mg PO DAILY [facility] Last Admin: 11/06/22 08:10 Dose: 1 mg Hydroxyzine HCl (Hydroxyzine Hcl 50 Mg Tablet) 50 mg PO Q6H PRN PRN Reason: anxiety/insomnia Hydroxyzine HCl (Hydroxyzine Hcl 25 Mg Tablet) 75 mg PO BEDTIME PRN PRN Reason: insomnia Last Admin: 11/06/22 00:35 Dose: 75 mg Loratadine (Loratadine 10 Mg Tablet) 10 mg PO DAILY [facility] Last Admin: 11/06/22 08:09 Dose: 10 mg Magnesium Hydroxide (Milk Of Magnesia 30 Ml Oral.Susp) 30 ml PO DAILY PRN PRN Reason: Constipation Mirtazapine (Mirtazapine 7.5 Mg Tablet) 7.5 mg PO BEDTIME [facility] Last Admin: 11/05/22 20:19 Dose: 7.5 mg Multi-Ingred Cream/Lotion/Oil/Oint (Artificial Tears Ophth Oint 3.5 Gm Tube) 1 appl EYE-LEFT TID PRN; Protocol PRN Reason: eye drynes Nicotine (Nicotine 21 Mg Patch.Td24) 21 mg TRANSDERMA DAILY PRN PRN Reason: smoking cessation Nicotine Polacrilex (Nicotine Polacrilex 2 Mg Gum) 4 mg BUCCAL Q2H PRN PRN Reason: Nicotine Cravings Last Admin: 11/05/22 11:32 Dose: 4 mg Omeprazole (Omeprazole 20 Mg Capsule.Dr) 20 mg PO DAILY [facility] Last Admin: 11/06/22 08:10 Dose: 20 mg Perphenazine (Perphenazine 4 Mg Tablet) 4 mg PO BID [facility] Last Admin: 11/06/22 08:10 Dose: 4 mg Sodium Chloride (Sodium Chloride 0.65 % Nasal 44 Ml Sprbtl) 1 spray NOSTRIL-B Q1H PRN PRN Reason: Congestion Last Admin: 11/05/22 02:58 Dose: 1 spray Allergies Allergies Allergy/AdvReac Type Severity Reaction Status Date / Time No Known Allergies Allergy Unverified 11/02/22 20:59 [No Known Allergies*] Assessment & Plan Assessment & Plan (1) Mood disorder: Status: Acute Code(s): F39 - Unspecified mood [affective] disorder Assessment and Plan: add in perphenazine- for pi (2) Post-traumatic stress disorder, chronic: Status: Acute Code(s): F43.12 - Post-traumatic stress disorder, chronic Assessment and Plan: vistaril seems to help this somewhat (3) Substance abuse: Status: Acute Code(s): F19.10 - Other psychoactive substance abuse, uncomplicated Assessment and Plan: urine not positive for opiate- watch for opiate withdrawl? 11/03 dced ciwa - no sys of withdrawl at all Plan Patient is a 47-year-old male with history of depression, PTSD, who was recently discharged from [facility] where he was started on Abilify Maintena and now pr esents with SI, HI and some paranoia in the context of substance abuse. ?Patient was started on Suboxone; covering provider started him on perphenazine for continued paranoid thinking. 11/04 Patient reports being in a good mood and that perphenazine has eliminated paranoid thoughts.? Some trouble sleeping and will use hydroxyzine as a p.r.n..? Denies all SI or HI or AVH and is feeling like he is getting back to his regular self. 11/05 patient remains stable, doing well. Wants to start on Remeron which helped him sleep in the past. Patient is engaged in treatment, attending groups and discussing his symptoms and struggles. Although patient has been doing well, he is at high risk for relapse and very much needs to go to a program post discharge. It is television writer's intention to have patient remain on the unit until he gets into a program. 11/06 stable; some anxiety and some paranoid thoughts, but with ability to reality test. PLAN: CV q15min checks ADDed Trilafon 2mg BID PRN for breakthrough paranoia Hydroxyzine 75mg qhs for sleep continue Remeron 7.5mg qhs for insomnia and anxiety pt was Started Abilify Maintenna about a week ago Continue Perphenazine 4mg BID Continued Suboxone 2/0.5mg daily changed Hydroxyzine to PRN's add perphenazine for paranoid thinking Group/mileu therapy Social work help with planning dispo Med trials: Zyprexa: Caused hyperlipidemia, weight gain, prediabetes; patient has lost weight since. Clonidine: Not helpful Trazodone: Restless leg I spent minutes with the patient and/or on the patient floor today, greater than?50% of which was spent counseling/coordinating care. Patient educated on: diagnosis and medication risk/benefits Informed Consent: understands Reason for contiued inpatient stay Substantial Risk for: stable for discharge
[2022-11-06] MEDS: Nicotine Polacrilex 2 MG GUM 4 MG BUCCAL ×2 (11:50→14:51)
[2022-11-06] MEDS: Albuterol Sulfate 90 MCG 8 GM INHALER 2 PUFF INHALE ×3 (13:17→23:40)
[2022-11-06] MEDS: Artificial Tears 15 ML DROPS 2 DROP EYE-LEFT ×2 (13:17→17:22)
[2022-11-06] MEDS: Sodium Chloride 0.65 % Nasal 44 ML SPRBTL 1 SPRAY NOSTRIL-B ×2 (13:17→17:22)
[2022-11-06] MEDS: hydrOXYzine HCL 25 MG TABLET 50 MG PO (14:54)
[2022-11-06 18:00] VITALS: BP 118/78; PULSE 96; RESP 16; TEMP 35.9; O2SAT 97
[2022-11-06] MEDS: Mirtazapine 7.5 MG TABLET PO (19:33)
[2022-11-07] MEDS: Loratadine 10 MG TABLET PO (08:59)
[2022-11-07] MEDS: Omeprazole 20 MG CAPSULE.DR PO (08:59)
[2022-11-07] MEDS: Buprenorphine/Naloxone 2/0.5mg FILM 1 FILM SUBLINGUAL (08:59)
[2022-11-07] MEDS: Folic Acid 1 MG TABLET PO (08:59)
[2022-11-07] MEDS: Perphenazine 4 MG TABLET PO ×2 (08:59→19:07)
[2022-11-07 09:02] VITALS: BP 112/87; PULSE 123; RESP 18; TEMP 36.3; O2SAT 97
[2022-11-07 09:41] VITALS: BMI 34.2
[2022-11-07] MEDS: Nicotine Polacrilex 2 MG GUM 4 MG BUCCAL ×2 (10:15→13:07)
[2022-11-07] MEDS: Albuterol Sulfate 90 MCG 8 GM INHALER 2 PUFF INHALE ×3 (10:15→19:08)
--- NOTE | 2022-11-07 12:30 | HO.PSYCHPN ---
Subjective Subjective Date of Service: 11/07/22 Reason For Visit: SI paranoia Interim History: late entry note for pt seen 11/07 pt reports doing well; paranoid thoughts resolved on own w/ out prn perphenazine. Pt says his uncle is willing to have him stay with him; his uncle is sober and works for [employer]. Pt feels that this is a good choice and says he'll go to meetings daily. Pt asks for discharge; he remains stable, no si/hi/avh, in good mood and w/ appropriate behaviors w/ peers and staff. Mental Status Exam Mental Status Exam Narrative: Pt is alert and oriented; behavior is cooperative, friendly and calm; patient is not in distress; dressed in casual attire, wearing glasses; adequate hygiene; mood is described as good and affect congruent, bright, calm, friendly; eye contact appropriate; Speech is normal rate, volume and prosody and not pressured; no psychomotor agitation/retardation present; thought process is organized and goal directed; Thought content is on tx; otherwise pertinent to relevant topics and without any delusional content, paranoid ideations or grandiosity; denies any SI/HI. There is no evidence of perceptual disturbance. Patients insight and judgment are fair and adequate. Diagnostics Vital Signs (24Hr): Vital Signs - 24 hr 11/07/22 18:00 11/08/22 08:01 Temperature 97.9 F 97.8 F Pulse Rate 88 90 Respiratory Rate 16 Blood Pressure 144/93 H 112/81 Pulse Oximetry 97 100 Oxygen Delivery Method Room Air Room Air BMI result Body Mass Index 34.2 Labs Results: 10/31/22 18:25 10/31/22 18:25 Imaging Radiology Impressions: ITS Impressions Chest X-Ray 10/31/22 20:27 IMPRESSION: Unremarkable examination. Medications Medications Current Medications Acetaminophen (Acetaminophen 325 Mg Tablet) 650 mg PO Q6H PRN PRN Reason: Headache/Pain Mild Scale (1-3) Al Hydroxide/Mg Hydroxide (Magnesium Hydrox/Alum Hydrox 30 Ml Oral.Susp) 30 ml PO Q6H PRN PRN Reason: Heartburn/Nausea Last Admin: 11/05/22 17:42 Dose: 30 ml Albuterol Sulfate (Albuterol Sulfate 90 Mcg 8 Gm Inhaler) 2 puff INHALE Q4H PRN PRN Reason: Shortness of Breath Last Admin: 11/07/22 19:08 Dose: 2 puff Artificial Tears (Artificial Tears 15 Ml Drops) 2 drop EYE-LEFT Q4H PRN PRN Reason: Dry Eyes Last Admin: 11/07/22 16:12 Dose: 2 drop Buprenorphine/Naloxone (Buprenorphine/Naloxone 2/0.5mg Film) 1 film SUBLINGUAL DAILY [facility] Last Admin: 11/08/22 08:28 Dose: 1 film Fluticasone Propionate (Fluticasone Propionate Nasal 16 Gm [place]) 2 spray NOSTRIL-B DAILY PRN PRN Reason: nasal congetstion Folic Acid (Folic Acid 1 Mg Tablet) 1 mg PO DAILY [facility] Last Admin: 11/08/22 08:28 Dose: 1 mg Hydroxyzine HCl (Hydroxyzine Hcl 25 Mg Tablet) 75 mg PO BEDTIME [facility] Last Admin: 11/07/22 19:07 Dose: 75 mg Hydroxyzine HCl (Hydroxyzine Hcl 25 Mg Tablet) 50 mg PO Q6H PRN PRN Reason: anxiety/insomnia Last Admin: 11/07/22 13:07 Dose: 50 mg Loratadine (Loratadine 10 Mg Tablet) 10 mg PO DAILY [facility] Last Admin: 11/08/22 08:28 Dose: 10 mg Magnesium Hydroxide (Milk Of Magnesia 30 Ml Oral.Susp) 30 ml PO DAILY PRN PRN Reason: Constipation Mirtazapine (Mirtazapine 7.5 Mg Tablet) 7.5 mg PO BEDTIME [facility] Last Admin: 11/07/22 19:08 Dose: 7.5 mg Multi-Ingred Cream/Lotion/Oil/Oint (Artificial Tears Ophth Oint 3.5 Gm Tube) 1 appl EYE-LEFT TID PRN; Protocol PRN Reason: eye drynes Nicotine (Nicotine 21 Mg Patch.Td24) 21 mg TRANSDERMA DAILY PRN PRN Reason: smoking cessation Nicotine Polacrilex (Nicotine Polacrilex 2 Mg Gum) 4 mg BUCCAL Q2H PRN PRN Reason: Nicotine Cravings Last Admin: 11/07/22 13:07 Dose: 4 mg Omeprazole (Omeprazole 20 Mg Capsule.Dr) 20 mg PO DAILY [facility] Last Admin: 11/08/22 08:28 Dose: 20 mg Perphenazine (Perphenazine 4 Mg Tablet) 4 mg PO BID [facility] Last Admin: 11/08/22 08:28 Dose: 4 mg Perphenazine (Perphenazine 2 Mg Tablet) 2 mg PO BID PRN PRN Reason: paranoid anxiety Sodium Chloride (Sodium Chloride 0.65 % Nasal 44 Ml Sprbtl) 1 spray NOSTRIL-B Q1H PRN PRN Reason: Congestion Last Admin: 11/07/22 19:08 Dose: 1 spray Allergies Allergies Allergy/AdvReac Type Severity Reaction Status Date / Time No Known Allergies Allergy Unverified 11/02/22 20:59 [No Known Allergies*] Assessment & Plan Assessment & Plan (1) Mood disorder: Status: Acute Code(s): F39 - Unspecified mood [affective] disorder Assessment and Plan: add in perphenazine- for pi (2) Post-traumatic stress disorder, chronic: Status: Acute Code(s): F43.12 - Post-traumatic stress disorder, chronic Assessment and Plan: vistaril seems to help this somewhat (3) Substance abuse: Status: Acute Code(s): F19.10 - Other psychoactive substance abuse, uncomplicated Assessment and Plan: urine not positive for opiate- watch for opiate withdrawl? 11/03 dced ciwa - no sys of withdrawl at all Plan Patient is a 47-year-old male with history of depression, PTSD, who was recently discharged from [facility] where he was started on Abilify Maintena and now presents with SI, HI and some paranoia in the context of substance abuse. ?Patient was started on Suboxone; covering provider started him on perphenazine for continued paranoid thinking. 11/04 Patient reports being in a good mood and that perphenazine has eliminated paranoid thoughts.? Some trouble sleeping and will use hydroxyzine as a p.r.n..? Denies all SI or HI or AVH and is feeling like he is getting back to his regular self. 11/05 patient remains stable, doing well. Wants to start on Remeron which helped him sleep in the past. Patient is engaged in treatment, attending groups and discussing his symptoms and struggles. Although patient has been doing well, he is at high risk for relapse and very much needs to go to a program post discharge. It is insurance underwriter sales's intention to have patient remain on the unit until he gets into a program. 11/06 stable; some anxiety and some paranoid thoughts, but with ability to reality test. 11/07 pt reports doing well; paranoid thoughts resolved on own w/ out prn perphenazine. Pt says his uncle is willing to have him stay with him; his uncle is sober and works for [employer]. Pt feels that this is a good choice and says he'll go to meetings daily. Pt asks for discharge; he remains stable, no si/hi/avh, in good mood and w/ appropriate behaviors w/ peers and staff. Discussed risks of relapse but pt is optimistic. He feels meds are working well. Pt is not in imminent risk for harm to self or others and request for discharge honored. PLAN: CV q15min checks Trilafon 2mg BID PRN for breakthrough paranoia Hydroxyzine 75mg qhs for sleep continue Remeron 7.5mg qhs for insomnia and anxiety pt was Started Abilify Maintenna about a week ago Continue Perphenazine 4mg BID Continued Suboxone 2/0.5mg daily changed Hydroxyzine to PRN's add perphenazine for paranoid thinking Group/mileu therapy Social work help with planning dispo Med trials: Zyprexa: Caused hyperlipidemia, weight gain, prediabetes; patient has lost weight since. Clonidine: Not helpful Trazodone: Restless leg I spent minutes with the patient and/or on the patient floor today, greater than?50% of which was spent counseling/coordinating care. Patient educated on: diagnosis, medication risk/benefits and substance abuse Informed Consent: understands Reason for contiued inpatient stay Substantial Risk for: stable for discharge
[2022-11-07] MEDS: hydrOXYzine HCL 25 MG TABLET 50 MG PO (13:07)
[2022-11-07] MEDS: Sodium Chloride 0.65 % Nasal 44 ML SPRBTL 1 SPRAY NOSTRIL-B ×2 (16:12→19:08)
[2022-11-07] MEDS: Artificial Tears 15 ML DROPS 2 DROP EYE-LEFT (16:12)
[2022-11-07 18:00] VITALS: BP 144/93; PULSE 88; TEMP 36.6; O2SAT 97
[2022-11-07] MEDS: hydrOXYzine HCL 25 MG TABLET 75 MG PO (19:07)
[2022-11-07] MEDS: Mirtazapine 7.5 MG TABLET PO (19:08)
[2022-11-08 08:01] VITALS: BP 112/81; PULSE 90; RESP 16; TEMP 36.6; O2SAT 100
[2022-11-08] MEDS: Loratadine 10 MG TABLET PO (08:28)
[2022-11-08] MEDS: Perphenazine 4 MG TABLET PO (08:28)
[2022-11-08] MEDS: Folic Acid 1 MG TABLET PO (08:28)
[2022-11-08] MEDS: Buprenorphine/Naloxone 2/0.5mg FILM 1 FILM SUBLINGUAL (08:28)
[2022-11-08] MEDS: Omeprazole 20 MG CAPSULE.DR PO (08:28)
--- NOTE | 2022-11-08 12:34 | P.DS_ITS ---
DS: Providers Provider Date of Service: 11/08/22 Date of admission: 11/01/22 13:57 Date of discharge: 11/08/22 Primary care physician: None Physician Attending physician on admission: Di Calderón Consults: 11/01/22 19:59 Addiction Medicine Routine Consulting Provider: Addiction Covering Reason for consultation: Interested in suboxone start Attending physician on discharge: William Morales DS: Diagnosis Discharge Diagnosis (1) Mood disorder: Status: Acute (2) Post-traumatic stress disorder, chronic: Status: Acute (3) Substance abuse: Status: Acute DS: Medications Discharge Medications Home Medications: Previous Rx's Medication Instructions Recorded albuterol sulfate 90 mcg/actuation 2 puff inhalation Q4H PRN 11/08/22 aerosol inhaler (Ventolin HFA) Shortness Of Breath 30 days #6.7 grams buprenorphine 2 mg-naloxone 0.5 mg 1 film sublingual DAILY 6 days #6 11/08/22 sublingual film (Suboxone) ea fluticasone propionate 50 2 spray intranasal DAILY PRN nasal 11/08/22 mcg/actuation nasal congetstion 30 days #16 grams spray,suspension folic acid 1 mg tablet 1 mg PO DAILY 30 days #30 tabs 11/08/22 hydroxyzine pamoate 25 mg capsule 75 mg PO BEDTIME 30 days #90 caps 11/08/22 hydroxyzine pamoate 50 mg capsule 50 mg PO TID PRN anxiety 30 days 11/08/22 #60 caps loratadine 10 mg tablet 10 mg PO DAILY 30 days #30 tabs 11/08/22 mirtazapine 7.5 mg tablet 7.5 mg PO BEDTIME 30 days #30 tabs 11/08/22 nicotine (polacrilex) 2 mg gum 4 mg buccal Q2H PRN Nicotine 11/08/22 Cravings 30 days #100 ea omeprazole 20 mg capsule,delayed 20 mg PO DAILY 30 days #30 caps 11/08/22 release perphenazine 2 mg tablet 2 mg PO DAILY PRN agitation 30 11/08/22 days #14 tabs perphenazine 4 mg tablet 4 mg PO BID 30 days #60 tabs 11/08/22 polyvinyl alcohol 1.4 % eye drops 2 drp ophthalmic-Left Q4H PRN Dry 11/08/22 (Artificial Tears (polyvinyl Eyes 30 days #15 mL alcohol)) sodium chloride 0.65 % nasal spray 1 spray intranasal Q1H PRN 11/08/22 aerosol (Deep Sea Nasal) Congestion 30 days #44 mL white petrolatum-mineral oil 83 1 appl ophthalmic-Left TID PRN eye 11/08/22 %-15 % eye ointment (Lubrifresh PM) drynes 30 days #3.5 grams Mental Status Exam Mental Status Exam Narrative: Pt is alert and oriented; behavior is cooperative, friendly and calm; patient is not in distress; dressed in casual attire, wearing glasses; adequate hygiene; mood is described as good and affect congruent, bright, calm, friendly; eye contact appropriate; Speech is normal rate, volume and prosody and not pressured; no psychomotor agitation/retardation present; thought process is organized and goal directed; Thought content is on tx; otherwise pertinent to relevant topics and without any delusional content, paranoid ideations or grandiosity; denies any SI/HI. There is no evidence of perceptual disturbance. Patients insight and judgment are fair and adequate. Data Data Completed and Pending Completed studies during hospitalization [Text1]: 10/31/22 11/02/22 11/03/22 18:25 07:09 10:10 Estimat Average Glucose 100 Hemoglobin A1c % 5.1 Triglycerides 111 Cholesterol 165 LDL Cholesterol, Calc 102 HDL Cholesterol 41 COVID-19 (JORDANA) Negative COVID-19 Clin Com See Note Imaging Diagnostic Imaging Impressions Chest X-Ray 10/31/22 20:27 IMPRESSION: Unremarkable examination. DS: Summary Hospital Course Hospital Course: HPI: Patient is a 47-year-old male with history of depression, PTSD, who was recently discharged from [facility] where he was started on Abilify Maintena and now presents with SI, HI and some paranoia in the context of substance abuse. ?Patient was started on Suboxone; covering provider started him on perphenazine for continued paranoid thinking. Hospital course: On admission patient was started on perphenazine. SI and HI quickly cleared up. Patient soon reported that he was feeling in a good mood on perphenazine and that paranoid thoughts were eliminated. Patient had some trouble sleeping but found hydroxyzine and Remeron helpful. Patient was engaged in treatment, attending groups and forthcoming in 1 on 1 sessions. He remained in good mood, denied any SI or HI or AVH or paranoid thinking. It was never completely clear if paranoid ideations were secondary to history of trauma or other own entity, however there remained resolved on medication regimen which was continued. He was appropriate with peers and staff and demonstrated good behavioral and impulse control throughout his admission. Patient was also started on low-dose Suboxone which he felt currently adequate to curb cravings. He would follow up with outpatient provider if he felt the need for to be titrated. Patient had received Abilify Maintena about a week prior to admission so he was actually currently on 2 antipsychotics. 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 Initially Patient wanted to go a program, however while waiting for an open bed, he found he was able to stay at his uncle's house who is sober and very supportive. Patient remained doing well, stable and optimistic about continued stability and sobriety. Paranoid thoughts remained resolved; no SI, no HI no AVH. Patient has plans for aftercare and will continue taking medication regimen; patient was aware of risks of both relapse and decompensation and said he would immediately reach out for help if he again ever felt unsafe.. Was not in imminent risk for harm to self or others and his request for discharge honored. Med trials: Zyprexa: Caused hyperlipidemia, weight gain, prediabetes; patient has lost weight since. Clonidine: Not helpful Trazodone: Restless leg Time spent discussing smoking cessation with patient: 3 to 10 minutes Status at Discharge Functional status at discharge: independent ambulation Overall status at discharge: patient is back to baseline Time Spent with Patient Time attestation: Total time spent providing and/or coordinating discharge services: Time spent: Less than 30 minutes Discharge Plan Discharge Anticipated Discharge Date/Time: 11/08/22 13:00 Patient Disposition: [facility] Discharge Diagnosis: PTSD, chronic Referrals: Darlene Gastelum [Other] - 11/12/22 11:00 am (Initial Intake for outpatient therapy and medication management at [facility] You must attend intake appointment or you risk losing medication management and therapy services) Jennifer Nunez [Other] - 11/14/22 9:15 am (Appointment for Suboxone medication assisted treatment (MAT) Appointment with Jennifer Nunez at [facility]. ) Physician,None [Primary Care Provider] - 1 Week (PT. MOVED TO [facility] . PT. WILL MAKE HIS OWN APPT. TO [facility].) Discharge Medications: New loratadine 10 mg Tablet 10 mg PO DAILY 30 Days Qty: 30 0RF albuterol sulfate [Ventolin HFA] 90 mcg/actuation Hfa Aerosol Inhaler 2 puff inhalation Q4H PRN (Reason: Shortness Of Breath) 30 Days Qty: 6.7 1RF nicotine (polacrilex) 2 mg Gum 4 mg buccal Q2H PRN (Reason: Nicotine Cravings) 30 Days Qty: 100 0RF mirtazapine 7.5 mg Tablet 7.5 mg PO BEDTIME 30 Days Qty: 30 1RF perphenazine 4 mg Tablet 4 mg PO BID 30 Days Qty: 60 1RF perphenazine 2 mg Tablet 2 mg PO DAILY PRN (Reason: agitation) 30 Days Qty: 14 1RF fluticasone propionate 50 mcg/actuation [place],Suspension 2 spray intranasal DAILY PRN (Reason: nasal congetstion) 30 Days Qty: 16 0RF polyvinyl alcohol [Artificial Tears (polyvin alc)] 1.4 % Drops 2 drp ophthalmic-Left Q4H PRN (Reason: Dry Eyes) 30 Days Qty: 15 1RF Deep Sea Nasal 0.65 % Aerosol,[place] 1 spray intranasal Q1H PRN (Reason: Congestion) 30 Days Qty: 44 1RF Lubrifresh PM 83-15 % Ointment 1 appl ophthalmic-Left TID PRN (Reason: eye drynes ) 30 Days Qty: 3.5 0RF Protocol: Apply to: Apply to: left eye omeprazole 20 mg Capsule,Delayed Release(Dr/Ec) 20 mg PO DAILY 30 Days Qty: 30 1RF Changed hydroxyzine pamoate 50 mg capsule 50 mg PO TID PRN (Reason: anxiety) 30 Days Qty: 60 0RF folic acid 1 mg tablet 1 mg PO DAILY 30 Days Qty: 30 0RF hydroxyzine pamoate 25 mg capsule 75 mg PO BEDTIME 30 Days Qty: 90 0RF No Action buprenorphine-naloxone [Suboxone] 2-0.5 mg film 1 film sublingual DAILY Qty: 2 0RF acetaminophen 500 mg capsule 500 mg PO Q6H PRN (Reason: fever or pain) Qty: 20 0RF sennosides [senna] 8.6 mg tablet 8.6 mg PO BID PRN (Reason: constipation) Qty: 30 0RF Discharge Orders: Discharge Order (Routine); Ordered 11/08/22 Ordered By: William Morales Diet: Regular diet Activity on Discharge: As tolerated Stand Alone Forms: Patient Portal Discharge page, Community Support Care Plan Goals: Maintain mood and safe behaviors Take medications as prescribed Continue to pursue sobriety Practice coping skills Continue with outpatient providers and reach out to them as needed Health Concerns: Mood stability and behaviors Sobriety Plan of Treatment: Follow up with your PCP, psychiatric provider and other outpatient providers regarding above concerns Take medications as prescribed Assessment: Risk assessment at time of discharge:? Patient was interviewed prior to discharge and found to be fully oriented and without any SI or HI. Patient has insight and demonstrates good judgment in terms of wanting to pursue treatment. Patient is not in imminent risk of harm to self or others and has a safety plan that includes presenting to the closest ER or calling 911 if feeling unsafe.? Patient has been observed closely by nursing and unit staff throughout admission; patient has not engaged in any behaviors that suggest dangerousness to self or others and has demonstrated appropriate behaviors and impulse control Patient Instructions: Depression (ED), Polysubstance Abuse (ED) Discharge Date/Time: 11/08/22 13:28
[2022-11-08] MEDS: Naloxone HCl Nasal TAKE HOME 4 MG SPRAY NOSTRILALT (13:19)
== END 2022-11-08 13:28 | disposition home or self-care (01) | DRG 755 ==
LOC: HO.ED 11-01 → HO.PM5 11-01 14:02
PROVIDERS: Nurse Practitioner Family; Psychiatry & Neurology Psychiatry; Admitting Provider Psychiatry & Neurology Psychiatry; Emergency Provider Emergency Medicine; Visit Provider Psychiatry & Neurology Psychiatry
DX: F43.12 Post-traumatic stress disorder, chronic (principal); R45.851 Suicidal ideations; F11.20 Opioid dependence, uncomplicated; Z20.822 Contact with and (suspected) exposure to COVID-19; Z62.810 Personal history of physical and sexual abuse in childhood; Z59.02 Unsheltered homelessness; Z79.899 Other long term (current) drug therapy
CPT/HCPCS: 0241U; 36415; 71046; 80053; 80061; 80307; 81001; 82077; 83036; 85025; 87635; 87651; 93005; 99285

== ENCOUNTER 2022-11-08 22:18 | Emergency (ER) | payer MEDICAID, SELFPAY ==
--- NOTE | ~2022-11-08 | XR_ITS ---
EXAMINATION: XR CHEST CLINICAL INFORMATION: Shortness of breath COMPARISON: Chest x-ray on 10/31/2022 TECHNIQUE: Frontal view of the chest was obtained. FINDINGS: No significant abnormality is noted involving the heart, lungs, mediastinum, bony thorax or soft tissues. XR/XR chest 1V IMPRESSION: Unremarkable examination.
[2022-11-08 22:21] VITALS: BP 134/87; PULSE 94; RESP 20; TEMP 36.6; O2SAT 97; BMI 34.1
--- NOTE | 2022-11-08 22:25 | ED.GENADULT ---
HPI - General Adult General Stated complaint: Trouble breathing Related Data Previous Rx's Medication Instructions Recorded albuterol sulfate 90 mcg/actuation 2 puff inhalation Q4H PRN 11/08/22 aerosol inhaler (Ventolin HFA) Shortness Of Breath 30 days #6.7 grams buprenorphine 2 mg-naloxone 0.5 mg 1 film sublingual DAILY 6 days #6 11/08/22 sublingual film (Suboxone) ea fluticasone propionate 50 2 spray intranasal DAILY PRN nasal 11/08/22 mcg/actuation nasal congetstion 30 days #16 grams spray,suspension folic acid 1 mg tablet 1 mg PO DAILY 30 days #30 tabs 11/08/22 hydroxyzine pamoate 25 mg capsule 75 mg PO BEDTIME 30 days #90 caps 11/08/22 hydroxyzine pamoate 50 mg capsule 50 mg PO TID PRN anxiety 30 days 11/08/22 #60 caps loratadine 10 mg tablet 10 mg PO DAILY 30 days #30 tabs 11/08/22 mirtazapine 7.5 mg tablet 7.5 mg PO BEDTIME 30 days #30 tabs 11/08/22 nicotine (polacrilex) 2 mg gum 4 mg buccal Q2H PRN Nicotine 11/08/22 Cravings 30 days #100 ea omeprazole 20 mg capsule,delayed 20 mg PO DAILY 30 days #30 caps 11/08/22 release perphenazine 2 mg tablet 2 mg PO DAILY PRN agitation 30 11/08/22 days #14 tabs perphenazine 4 mg tablet 4 mg PO BID 30 days #60 tabs 11/08/22 polyvinyl alcohol 1.4 % eye drops 2 drp ophthalmic-Left Q4H PRN Dry 11/08/22 (Artificial Tears (polyvinyl Eyes 30 days #15 mL alcohol)) sodium chloride 0.65 % nasal spray 1 spray intranasal Q1H PRN 11/08/22 aerosol (Deep Sea Nasal) Congestion 30 days #44 mL white petrolatum-mineral oil 83 1 appl ophthalmic-Left TID PRN eye 11/08/22 %-15 % eye ointment (Lubrifresh PM) drynes 30 days #3.5 grams Allergies Allergy/AdvReac Type Severity Reaction Status Date / Time No Known Allergies Allergy Unverified 11/02/22 20:59 [No Known Allergies*] [facility] Social History Social History Household Members: None Housing: Homeless Do you presently have visiting nurse or other home services: No Alcohol intake: current Patient Tobacco Use Status: Current everyday Tobacco user Tobacco use type: Cigarette Cigarettes Per Day: 1 Second Hand Smoke Exposure: Yes Substance Use Type: Crack/Cocaine, Heroin, Marijuana and Opiates service: No Sexual orientation: Straight/Heterosexual Course Course Course Narrative: RME 47 yo m hx of substance abuse, depression, anxiety, GERD, ptsd, opiate use do, d/c today from [facility] presents w/ SOB X1 hour better when outside worse inside. Reports substernal chest tightness non radiating. Denies cough, fevers, chills, nause, vomiting, headache, dizziness, ear pain, sore throat. 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 Denies SI, HI. Reports marijuana use. Physical exam benign. VSS O2 98% even after ambulation. And basic labs, EKG Discharge Plan Discharge Prescriptions: No Action loratadine 10 mg Tablet 10 mg PO DAILY 30 Days Qty: 30 0RF albuterol sulfate [Ventolin HFA] 90 mcg/actuation Hfa Aerosol Inhaler 2 puff inhalation Q4H PRN (Reason: Shortness Of Breath) 30 Days Qty: 6.7 1RF nicotine (polacrilex) 2 mg Gum 4 mg buccal Q2H PRN (Reason: Nicotine Cravings) 30 Days Qty: 100 0RF buprenorphine-naloxone [Suboxone] 2-0.5 mg Film 1 film sublingual DAILY 6 Days Qty: 6 0RF mirtazapine 7.5 mg Tablet 7.5 mg PO BEDTIME 30 Days Qty: 30 1RF perphenazine 4 mg Tablet 4 mg PO BID 30 Days Qty: 60 1RF perphenazine 2 mg Tablet 2 mg PO DAILY PRN (Reason: agitation) 30 Days Qty: 14 1RF fluticasone propionate 50 mcg/actuation [place],Suspension 2 spray intranasal DAILY PRN (Reason: nasal congetstion) 30 Days Qty: 16 0RF polyvinyl alcohol [Artificial Tears (polyvin alc)] 1.4 % Drops 2 drp ophthalmic-Left Q4H PRN (Reason: Dry Eyes) 30 Days Qty: 15 1RF Deep Sea Nasal 0.65 % Aerosol,[place] 1 spray intranasal Q1H PRN (Reason: Congestion) 30 Days Qty: 44 1RF Lubrifresh PM 83-15 % Ointment 1 appl ophthalmic-Left TID PRN (Reason: eye drynes ) 30 Days Qty: 3.5 0RF Protocol: Apply to: Apply to: left eye omeprazole 20 mg Capsule,Delayed Release(Dr/Ec) 20 mg PO DAILY 30 Days Qty: 30 1RF hydroxyzine pamoate 50 mg capsule 50 mg PO TID PRN (Reason: anxiety) 30 Days Qty: 60 0RF folic acid 1 mg tablet 1 mg PO DAILY 30 Days Qty: 30 0RF hydroxyzine pamoate 25 mg capsule 75 mg PO BEDTIME 30 Days Qty: 90 0RF
--- NOTE | 2022-11-08 22:27 | ECG_ITS ---
Test Reason : UPPER RESP Blood Pressure : / mmHG Vent. Rate : 088 BPM Atrial Rate : 088 BPM P-R Int : 124 ms QRS Dur : 086 ms QT Int : 358 ms P-R-T Axes : 059 043 026 degrees QTc Int : 433 ms Normal sinus rhythm Normal ECG When compared with ECG of 01-NOV-2022 12:11, No significant change was found Referred By: Johan Luz Electronically Signed By:RAÚL NDIAYE MD
[2022-11-08 22:47] LABS: Basophils Percent Auto 0.1 % (0-2); Eosinophils Absolute Auto 0.2 X10*3/uL (0.0-0.4); Eosinophils Percent Auto 2.2 % (0-4); Hematocrit 39.7 % (42.0-52.0); Hemoglobin 13.2 g/dl (14.0-18.0); Imm Gran Abs Auto 0.03 X10*3/uL (0.00-0.03); Imm Gran Pct Auto 0.3 % (0.0-0.4); Lymphocytes Absolute Auto 1.8 X10*3/uL (1.2-4.9); Lymphocytes Percent Auto 19.4 % (20-40); MANUAL DIFF FLAG NO; Mean Corpuscular HGB Conc 33.2 g/dl (31.0-36.0); Mean Corpuscular Hemoglobin 32.3 pg (27.0-33.0); Mean Corpuscular Volume 97.1 fL (80.0-98.0); Mean Platelet Volume 9.3 fL (9.4-12.4); Monocytes Absolute Auto 0.7 X10*3/uL (0.1-1.2); Monocytes Percent Auto 7.3 % (2-11); Neutrophils Absolute Auto 6.7 x10*3/uL (2.0-8.3); Neutrophils Percent Auto 70.7 % (45-73); Platelet Count 375 X10*3/uL (160-400); Red Blood Count 4.09 X10*6/uL (4.60-5.80); Red Cell Distribution Width 12.8 % (11.0-16.0); White Blood Count 9.5 X10*3/uL (4.8-10.8)
[2022-11-08 23:04] LABS: Alanine Aminotransferase 28 U/L (0-40); Alkaline Phosphatase 81 U/L (39-117); Anion Gap 12 (12-20); Aspartate Amino Transferase 25 U/L (5-37); Blood Urea Nitrogen 15 mg/dL (9-16); Carbon Dioxide 24 mmol/L (22-29); Chloride 106 mmol/L (96-108); Creatinine Clr Calc Pharmacy 94.7; Estimated Glomerular Filt Rate > 60; Glucose Random 132 mg/dL (60-115); Potassium 4.2 mmol/L (3.3-5.1); Sodium 138 mmol/L (135-145); Total Protein 7.2 g/dL (6.5-8.0)
[2022-11-08 23:09] LABS: Troponin-I High Sensitivity < 3.5 ng/L (<3.5-35.0)
[2022-11-08 23:24] LABS: Influenza A PCR NEGATIVE (Negative); Influenza B PCR NEGATIVE (Negative); Resp Syncy Virus RNA Qual PCR NEGATIVE (Negative); SARS COV2 PCR INHOUSE NEGATIVE (Negative)
--- NOTE | 2022-11-09 00:37 | ED.URI ---
HPI - URI/Sore Throat General Chief Complaint: Upper Respiratory Symptoms Stated Complaint: Trouble breathing Time Seen by Provider: 11/09/22 00:29 Source: patient Mode of arrival: ambulatory Limitations: no limitations History of Present Illness HPI Narrative: Patient comes to the emergency room complaining of a sore throat and congestion. Patient states that initially he had difficulty breathing for 1 hour prior to arrival. Patient states that when he was outside he was being normal and every time he walks inside, it seems hard to breathe. At this time, patient states that he has no chest pain or tightness, no cough or shortness of breath. No fever or chills. Of note, patient was discharged today from [facility] Related Data Previous Rx's Medication Instructions Recorded albuterol sulfate 90 mcg/actuation 2 puff inhalation Q4H PRN 11/08/22 aerosol inhaler (Ventolin HFA) Shortness Of Breath 30 days #6.7 grams buprenorphine 2 mg-naloxone 0.5 mg 1 film sublingual DAILY 6 days #6 11/08/22 sublingual film (Suboxone) ea fluticasone propionate 50 2 spray intranasal DAILY PRN nasal 11/08/22 mcg/actuation nasal congetstion 30 days #16 grams spray,suspension folic acid 1 mg tablet 1 mg PO DAILY 30 days #30 tabs 11/08/22 hydroxyzine pamoate 25 mg capsule 75 mg PO BEDTIME 30 days #90 caps 11/08/22 hydroxyzine pamoate 50 mg capsule 50 mg PO TID PRN anxiety 30 days 11/08/22 #60 caps loratadine 10 mg tablet 10 mg PO DAILY 30 days #30 tabs 11/08/22 mirtazapine 7.5 mg tablet 7.5 mg PO BEDTIME 30 days #30 tabs 11/08/22 nicotine (polacrilex) 2 mg gum 4 mg buccal Q2H PRN Nicotine 11/08/22 Cravings 30 days #100 ea omeprazole 20 mg capsule,delayed 20 mg PO DAILY 30 days #30 caps 11/08/22 release perphenazine 2 mg tablet 2 mg PO DAILY PRN agitation 30 11/08/22 days #14 tabs perphenazine 4 mg tablet 4 mg PO BID 30 days #60 tabs 11/08/22 polyvinyl alcohol 1.4 % eye drops 2 drp ophthalmic-Left Q4H PRN Dry 11/08/22 (Artificial Tears (polyvinyl Eyes 30 days #15 mL alcohol)) sodium chloride 0.65 % nasal spray 1 spray intranasal Q1H PRN 11/08/22 aerosol (Deep Sea Nasal) Congestion 30 days #44 mL white petrolatum-mineral oil 83 1 appl ophthalmic-Left TID PRN eye 11/08/22 %-15 % eye ointment (Lubrifresh PM) drynes 30 days #3.5 grams acetaminophen 500 mg capsule 500 mg PO Q6H PRN fever or pain 11/09/22 #20 caps Allergies Allergy/AdvReac Type Severity Reaction Status Date / Time No Known Allergies Allergy Unverified 11/02/22 20:59 [No Known Allergies*] Review of Systems Review of Systems: Constitutional : No Weight loss, No Fever, No Chills, No Night Sweats, No Fatigue, No Malaise ENT/Mouth : No Hearing loss, No Ear Pain, complaining of Nasal Congestion, No Sinus Pain, No Hoarseness, complaining mild sore throat, No Rhinorrhea, No Swallowing Difficulty Eyes: No Eye Pain, No Swelling, No Redness, No Foreign Body, No Discharge, No Vision Changes Cardiovascular : No Chest Pain, No SOB, No Dyspnea on Exertion, No Orthopnea, No Edema, No Palpitations Respiratory : No Cough, No Sputum, No Wheezing, No Smoke Exposure, No Dyspnea Gastrointestinal : No Nausea, No Vomiting, No Diarrhea, No Constipation, No abdominal Pain, No Hematochezia, No Melena Genitourinary : no irregular bleeding, No Dysuria, No Urinary Frequency, No Hematuria, No Urinary Incontinence, No Urgency, No Flank Pain, No Urinary Flow Changes, No Hesitancy Musculoskeletal : No joint pain, No Myalgias, No Joint Swelling Skin : No Skin Lesions, No rash Neuro : No Weakness, No Numbness, No Paresthesias, No Loss of Consciousness, No Dizziness, No Headache Psych : No Anxiety/Panic, No Depression, No SI/HI/AH/VH, No Social Issues, Heme/Lymph: No Bruising, No Bleeding,No Lymphadenopathy Endocrine : No Polyuria, No Polydipsia, No Temperature Intolerance PMFSH Past Medical History Medical History Depression Mood disorder Opioid use disorder Post-traumatic stress disorder, chronic Substance abuse Social History Social History Household Members: None Housing: Homeless Do you presently have visiting nurse or other home services: No Alcohol intake: current Patient Tobacco Use Status: Current everyday Tobacco user Tobacco use type: Cigarette Cigarettes Per Day: 1 Second Hand Smoke Exposure: Yes Substance Use Type: Crack/Cocaine, Heroin, Marijuana and Opiates Advance Directives: No Advance Directives Information Provided: No service: No Sexual orientation: Straight/Heterosexual Physical Exam Vital Signs: Vital Signs: Last Vital Signs Temp 97.9 F 11/08/22 22:21 Pulse 94 11/08/22 22:21 Resp 20 11/08/22 22:21 BP 134/87 11/08/22 22:21 Pulse Ox 97 11/08/22 22:21 O2 Del Method 11/08/22 22:21 BMI result Body Mass Index 34.1 Const: Other: Appearance: Alert. Oriented X3. No acute distress. Eyes: Pupils equal, round and reactive to light. ENT: Pharynx normal. Mildly erythematous, no exudates, no abscess is visualized Neck: Normal inspection. Neck supple. No lymph nodes noted. No crepitus CVS: Normal heart rate and rhythm. Pulses normal. Normal S1 and S2 Respiratory: No respiratory distress. Breath sounds normal. No Wheezing. No rales Abdomen: Soft and nontender. No rigidity. No distention. Skin: Skin warm and dry. Normal skin color. Normal skin turgor. Extremities: No lower extremity edema. No Lacerations. No Rash Neuro: Oriented X 3. No motor deficit. No sensory deficit. Moving all extremities. No slurred speech. CN 2 through 12 grossly intact Psych: calm, cooperative, normal affect Course Course Course Narrative: Patient likely has viral pharyngitis, patient was provided with 1 dose of Decadron p.o. and viscous lidocaine for symptomatic relief. Lab and x-rays do not show any acute pathology. Wells score for pulmonary embolism is 0 Medical Decision Making Medical Decision Making Differential Diagnoses: Differential diagnosis (Bronchitis, pharyngitis, pneumonia, PE) Lab Attestation: I reviewed the patient's lab results. (Negative for COVID, influenza) Independent interpretation of EKG, rhythm strip, radiology study: Independent interp EKG,rhythm strip, radiology study I performed an independent interpretation of the: Plain X-Ray My interpretation is negative for infiltrates Non-ED record review: Review of External (Non-ED) Record External record reviewed:: Inpatient record (Patient was recently discharged for mood disorder, PTSD and substance abuse, patient did not have any respiratory symptoms upon discharge) Prescription medication was considered but ultimately not given after discussion with patient/family. (e.g., pain medication, antiviral, antibiotic): Prescriptions considered but not given I considered prescription management with: Antibiotic (Patient does not have any fever chills, chest x-ray negative. At this time, is likely that the patient has a viral infection, no antibiotics will be prescribed, discussed with patient and agrees with plan) Discharge Plan Discharge Clinical Impression: Acute viral pharyngitis Patient Disposition: Home, Self-Care Instructions: Pharyngitis (ED) Additional Instructions: Please follow-up with your primary care physician tomorrow. If you have any worsening or new symptoms, please return to the emergency room or call 911 Prescriptions: New acetaminophen 500 mg capsule 500 mg PO Q6H PRN (Reason: fever or pain) Qty: 20 0RF No Action loratadine 10 mg Tablet 10 mg PO DAILY 30 Days Qty: 30 0RF albuterol sulfate [Ventolin HFA] 90 mcg/actuation Hfa Aerosol Inhaler 2 puff inhalation Q4H PRN (Reason: Shortness Of Breath) 30 Days Qty: 6.7 1RF nicotine (polacrilex) 2 mg Gum 4 mg buccal Q2H PRN (Reason: Nicotine Cravings) 30 Days Qty: 100 0RF buprenorphine-naloxone [Suboxone] 2-0.5 mg Film 1 film sublingual DAILY 6 Days Qty: 6 0RF mirtazapine 7.5 mg Tablet 7.5 mg PO BEDTIME 30 Days Qty: 30 1RF perphenazine 4 mg Tablet 4 mg PO BID 30 Days Qty: 60 1RF perphenazine 2 mg Tablet 2 mg PO DAILY PRN (Reason: agitation) 30 Days Qty: 14 1RF fluticasone propionate 50 mcg/actuation [place],Suspension 2 spray intranasal DAILY PRN (Reason: nasal congetstion) 30 Days Qty: 16 0RF polyvinyl alcohol [Artificial Tears (polyvin alc)] 1.4 % Drops 2 drp ophthalmic-Left Q4H PRN (Reason: Dry Eyes) 30 Days Qty: 15 1RF Deep Sea Nasal 0.65 % Aerosol,[place] 1 spray intranasal Q1H PRN (Reason: Congestion) 30 Days Qty: 44 1RF Lubrifresh PM 83-15 % Ointment 1 appl ophthalmic-Left TID PRN (Reason: eye drynes ) 30 Days Qty: 3.5 0RF Protocol: Apply to: Apply to: left eye omeprazole 20 mg Capsule,Delayed Release(Dr/Ec) 20 mg PO DAILY 30 Days Qty: 30 1RF hydroxyzine pamoate 50 mg capsule 50 mg PO TID PRN (Reason: anxiety) 30 Days Qty: 60 0RF folic acid 1 mg tablet 1 mg PO DAILY 30 Days Qty: 30 0RF hydroxyzine pamoate 25 mg capsule 75 mg PO BEDTIME 30 Days Qty: 90 0RF
[2022-11-09] MEDS: dexAMETHasone sod phosphate 4 MG/ML VIAL 6 MG IVPUSH (00:46)
[2022-11-09] MEDS: Lidocaine HCl Viscous 2 % 15 ML SOLUTION MUCOUS MEM (00:47)
[2022-11-09 00:54] LABS: Bilirubin Total < 0.2 mg/dL (0.0-1.0)
== END 2022-11-09 01:08 | disposition home or self-care (01) ==
PROVIDERS: Physician Assistant; Emergency Provider Emergency Medicine
DX: J02.8 Acute pharyngitis due to other specified organisms (principal); B97.89 Other viral agents as the cause of diseases classified elsewhere; R06.02 Shortness of breath; R05.9 Cough, unspecified; Z20.822 Contact with and (suspected) exposure to COVID-19; F17.210 Nicotine dependence, cigarettes, uncomplicated; Z71.6 Tobacco abuse counseling; Z79.899 Other long term (current) drug therapy
CPT/HCPCS: 0241U; 36415; 71045; 80053; 84484; 85025; 93005; 96374; 99284; J1100

== ENCOUNTER → 2022-11-18 13:17 | Outpatient (BNVA) | payer OTHER, SELFPAY | PROVIDERS: Visit Provider Nurse Practitioner Psychiatric/Mental Health | DX: Z51.81 Encounter for therapeutic drug level monitoring (principal); F11.20 Opioid dependence, uncomplicated | CPT/HCPCS: 80305; 99212 ==

== ENCOUNTER 2024-08-01 23:47 | Emergency (ER) | payer OTHER, SELFPAY ==
[2024-08-01 23:55] VITALS: PULSE 111; RESP 12; TEMP 36.6; O2SAT 98; BMI 32.5
[2024-08-02 00:08] VITALS: BP 147/93; PULSE 111; RESP 16; TEMP 37.1; O2SAT 97
--- NOTE | 2024-08-02 00:09 | ED.GENADULT ---
HPI - General Adult General Chief complaint: ETOH/Substance Use Stated complaint: CRACK USE/INTOXICATED Time Seen by Provider: 08/01/24 23:57 Source: patient Mode of arrival: EMS Limitations: no limitations History of Present Illness ED Provider: [place] GRIJALVA narrative: Patient with history of PTSD anxiety was drinking alcohol smoking and use cocaine picked up by PD outside the bar patient ambulating steady gait alert oriented times denied any suicidal ideation or hallucination feels comfortable to go. Patient does not want to be evaluated by psych Related Data Previous Rx's ?Medication ?Instructions ?Recorded albuterol sulfate 90 mcg/actuation 2 puff inhalation Q4H PRN 11/08/22 aerosol inhaler (Ventolin HFA) Shortness Of Breath 30 days #6.7 grams fluticasone propionate 50 2 spray intranasal DAILY PRN nasal 11/08/22 mcg/actuation nasal congetstion 30 days #16 grams spray,suspension folic acid 1 mg tablet 1 mg PO DAILY 30 days #30 tabs 11/08/22 hydroxyzine pamoate 25 mg capsule 75 mg (3 x 25 mg) PO BEDTIME 30 11/08/22 days #90 caps hydroxyzine pamoate 50 mg capsule 50 mg PO TID PRN anxiety 30 days 11/08/22 #60 caps loratadine 10 mg tablet 10 mg PO DAILY 30 days #30 tabs 11/08/22 mirtazapine 7.5 mg tablet 7.5 mg PO BEDTIME 30 days #30 tabs 11/08/22 nicotine (polacrilex) 2 mg gum 4 mg buccal Q2H PRN Nicotine 11/08/22 Cravings 30 days #100 ea omeprazole 20 mg capsule,delayed 20 mg PO DAILY 30 days #30 caps 11/08/22 release perphenazine 2 mg tablet 2 mg PO DAILY PRN agitation 30 11/08/22 days #14 tabs perphenazine 4 mg tablet 4 mg PO BID 30 days #60 tabs 11/08/22 polyvinyl alcohol 1.4 % eye drops 2 drp ophthalmic-Left Q4H PRN Dry 11/08/22 (Artificial Tears (polyvinyl Eyes 30 days #15 mL alcohol)) sodium chloride 0.65 % nasal spray 1 spray intranasal Q1H PRN 11/08/22 aerosol (Deep Sea Nasal) Congestion 30 days #44 mL white petrolatum-mineral oil 83 1 appl ophthalmic-Left TID PRN eye 11/08/22 %-15 % eye ointment (Lubrifresh PM) drynes 30 days #3.5 grams acetaminophen 500 mg capsule 500 mg PO Q6H PRN fever or pain 11/09/22 #20 caps sennosides 8.6 mg tablet (senna) 8.6 mg PO BID PRN constipation #30 11/18/22 tabs buprenorphine 2 mg-naloxone 0.5 mg 1 film sublingual DAILY #2 ea 11/26/22 sublingual film (Suboxone) Allergies Allergy/AdvReac Type Severity Reaction Status Date / Time No Known Allergies Allergy Verified 08/01/24 23:57 [No Known Allergies*] Review of Systems Review of Systems: Yes all other systems are reviewed and are negative PMFSH Past Medical History Medical History Opioid use disorder Post-traumatic stress disorder, chronic Mood disorder Substance abuse Depression Social History Social History Household Members: None Housing: Homeless Do you presently have visiting nurse or other home services: No Alcohol intake: current Alcohol type: hard liquor Patient Tobacco Use Status: Current everyday Tobacco user Tobacco use type: Cigarette Cigarettes Per Day: 1 Smoked in Last 30 Days: Yes Second Hand Smoke Exposure: Yes Use of substances other than those prescribed or required for medical reasons: Yes Substance Use Type: Crack/Cocaine Do you have a plan to hurt others: No Plan service: No Sexual orientation: Straight/Heterosexual Physical Exam ED Vital Signs: Vital Signs - 24 hr 08/01/24 23:55 08/02/24 00:08 Temperature 98 F 98.7 F Pulse Rate 111 H 111 H Respiratory Rate 12 16 Blood Pressure 147/93 H Pulse Oximetry 98 97 Oxygen Delivery Method Room Air Room Air BMI result Body Mass Index 32.5 Appearance: Alert. Oriented X3. No acute distress. Eyes: PERRLA, No Nystagmus ENT: Pharynx normal. Oral Mucosa moist Neck: Normal inspection. Neck supple. CVS: Normal heart rate and rhythm. Pulses normal. Respiratory: No respiratory distress. Equal air entry bilateral, no wheezing/rales/rhonchi Abdomen: Soft and nontender. Bowel sounds are present, no mass palpable, no CVA tenderness Skin: Skin warm and dry. Normal skin color. Normal skin turgor. Extremities: No lower extremity edema. No calf tenderness psych: Mood stable denies any si or HI no hallucination or delusion Neuro: Oriented X 3. No motor deficit. No sensory deficit.No cerebellar signs , cranial nerves II-XII intact Discharge Plan Discharge Clinical Impression: Substance abuse Patient Disposition: Home, Self-Care Instructions: Polysubstance Abuse (ED) Additional Instructions: Do not use cocaine and other substances Take your medications Prescriptions: No Action buprenorphine-naloxone [Suboxone] 2-0.5 mg film 1 film sublingual DAILY Qty: 2 0RF loratadine 10 mg Tablet 10 mg PO DAILY 30 Days Qty: 30 0RF albuterol sulfate [Ventolin HFA] 90 mcg/actuation Hfa Aerosol Inhaler 2 puff inhalation Q4H PRN (Reason: Shortness Of Breath) 30 Days Qty: 6.7 1RF nicotine (polacrilex) 2 mg Gum 4 mg buccal Q2H PRN (Reason: Nicotine Cravings) 30 Days Qty: 100 0RF mirtazapine 7.5 mg Tablet 7.5 mg PO BEDTIME 30 Days Qty: 30 1RF perphenazine 4 mg Tablet 4 mg PO BID 30 Days Qty: 60 1RF perphenazine 2 mg Tablet 2 mg PO DAILY PRN (Reason: agitation) 30 Days Qty: 14 1RF fluticasone propionate 50 mcg/actuation [place],Suspension 2 spray intranasal DAILY PRN (Reason: nasal congetstion) 30 Days Qty: 16 0RF polyvinyl alcohol [Artificial Tears (polyvin alc)] 1.4 % Drops 2 drp ophthalmic-Left Q4H PRN (Reason: Dry Eyes) 30 Days Qty: 15 1RF Deep Sea Nasal 0.65 % Aerosol,[place] 1 spray intranasal Q1H PRN (Reason: Congestion) 30 Days Qty: 44 1RF Lubrifresh PM 83-15 % Ointment 1 appl ophthalmic-Left TID PRN (Reason: eye drynes ) 30 Days Qty: 3.5 0RF Protocol: Apply to: Apply to: left eye omeprazole 20 mg Capsule,Delayed Release(Dr/Ec) 20 mg PO DAILY 30 Days Qty: 30 1RF hydroxyzine pamoate 50 mg capsule 50 mg PO TID PRN (Reason: anxiety) 30 Days Qty: 60 0RF folic acid 1 mg tablet 1 mg PO DAILY 30 Days Qty: 30 0RF hydroxyzine pamoate 25 mg capsule 75 mg PO BEDTIME 30 Days Qty: 90 0RF acetaminophen 500 mg capsule 500 mg PO Q6H PRN (Reason: fever or pain) Qty: 20 0RF sennosides [senna] 8.6 mg tablet 8.6 mg PO BID PRN (Reason: constipation) Qty: 30 0RF Interventions: ED Discharge Assessment Last Done: 08/02/24 00:08 Print Language: Montserratian
--- NOTE | 2024-08-02 00:15 | PC.NURSE ---
pt came in on ems stretcher, yelling, requesting to leave, says he does not need to be here - as he is not SI/HI or paranoid. Pt ambulates with a steady gait, is A&Ox4, speaking clear full sentences with no airway compromise/resp distress. MD Gongora at bedside for assessment and OK'd to discharge patient.
== END 2024-08-02 00:14 | disposition home or self-care (01) ==
PROVIDERS: Emergency Provider Internal Medicine
DX: F19.10 Other psychoactive substance abuse, uncomplicated (principal); F32.A Depression, unspecified; Z79.899 Other long term (current) drug therapy
CPT/HCPCS: 99283; 99284

== ENCOUNTER 2024-08-07 10:08 | Emergency (ER) | payer OTHER, SELFPAY ==
[2024-08-07 10:19] VITALS: BP 120/88; PULSE 100; RESP 19; TEMP 36.6; O2SAT 98; BMI 34.9
--- NOTE | 2024-08-07 10:38 | MHC.EDTECH ---
patient changed over with security. patient was cooperative. belongings are in locker c6
--- NOTE | 2024-08-07 10:39 | PC.NURSE ---
pt changed into hospital attire, pct Chela was able to talk with him and convince him to change
--- NOTE | 2024-08-07 11:12 | ED_ITS ---
HPI - Alcohol General Chief Complaint: ETOH/Substance Use Stated Complaint: ETOH/COCAINE USE LAST NOC,NOT COOP [place] [facility] Time Seen by Provider: 08/07/24 11:08 Source: patient, EMS, RN notes reviewed and old records reviewed Mode of arrival: EMS History of Present Illness ED Provider: Chikis Olivares PA-C HPI narrative: 49-year-old male with a past medical history of opiate use disorder, PTSD, mood disorder, substance abuse, depression, presenting to ED via EMS s/p being found on machinery, patient admits to cocaine and ETOH use. Admits/cocaine use 2 days ago, last drink last night. Admits to drinking about a pint of EtOH daily, admits to history of ETOH withdrawal, denies withdrawal seizures. Denies SI/HI, recent injury/trauma or fall. Denies CP/SOB. Is interested in detox Related Data Previous Rx's ?Medication ?Instructions ?Recorded albuterol sulfate 90 mcg/actuation 2 puff inhalation Q4H PRN 11/08/22 aerosol inhaler (Ventolin HFA) Shortness Of Breath 30 days #6.7 grams fluticasone propionate 50 2 spray intranasal DAILY PRN nasal 11/08/22 mcg/actuation nasal congetstion 30 days #16 grams spray,suspension folic acid 1 mg tablet 1 mg PO DAILY 30 days #30 tabs 11/08/22 hydroxyzine pamoate 25 mg capsule 75 mg (3 x 25 mg) PO BEDTIME 30 11/08/22 days #90 caps hydroxyzine pamoate 50 mg capsule 50 mg PO TID PRN anxiety 30 days 11/08/22 #60 caps loratadine 10 mg tablet 10 mg PO DAILY 30 days #30 tabs 11/08/22 mirtazapine 7.5 mg tablet 7.5 mg PO BEDTIME 30 days #30 tabs 11/08/22 nicotine (polacrilex) 2 mg gum 4 mg buccal Q2H PRN Nicotine 11/08/22 Cravings 30 days #100 ea omeprazole 20 mg capsule,delayed 20 mg PO DAILY 30 days #30 caps 11/08/22 release perphenazine 2 mg tablet 2 mg PO DAILY PRN agitation 30 11/08/22 days #14 tabs perphenazine 4 mg tablet 4 mg PO BID 30 days #60 tabs 11/08/22 polyvinyl alcohol 1.4 % eye drops 2 drp ophthalmic-Left Q4H PRN Dry 11/08/22 (Artificial Tears (polyvinyl Eyes 30 days #15 mL alcohol)) sodium chloride 0.65 % nasal spray 1 spray intranasal Q1H PRN 11/08/22 aerosol (Deep Sea Nasal) Congestion 30 days #44 mL white petrolatum-mineral oil 83 1 appl ophthalmic-Left TID PRN eye 11/08/22 %-15 % eye ointment (Lubrifresh PM) drynes 30 days #3.5 grams acetaminophen 500 mg capsule 500 mg PO Q6H PRN fever or pain 11/09/22 #20 caps sennosides 8.6 mg tablet (senna) 8.6 mg PO BID PRN constipation #30 11/18/22 tabs buprenorphine 2 mg-naloxone 0.5 mg 1 film sublingual DAILY #2 ea 11/26/22 sublingual film (Suboxone) Allergies Allergy/AdvReac Type Severity Reaction Status Date / Time No Known Allergies Allergy Verified 08/07/24 10:22 [No Known Allergies*] Review of Systems 2 Review of Systems: Yes all other systems are reviewed and are negative Constitutional: Constitutional: Reports as per [facility] Past Medical History Attestation statement: The following information was validated with the patient. Source: old records reviewed Medical History Opioid use disorder Post-traumatic stress disorder, chronic Mood disorder Substance abuse Depression Social History Social History Household Members: None Housing: Homeless Do you presently have visiting nurse or other home services: No Alcohol intake: current Alcohol type: hard liquor Patient Tobacco Use Status: Current everyday Tobacco user Tobacco use type: Cigarette Cigarettes Per Day: 1 Smoked in Last 30 Days: Yes Second Hand Smoke Exposure: Yes Use of substances other than those prescribed or required for medical reasons: Yes Substance Use Type: Crack/Cocaine Last Used Substance: Just Prior to Admission Advance Directives: No Do you have a plan to hurt others: No Plan service: No Sexual orientation: Straight/Heterosexual Physical Exam ED Vital Signs: Vital Signs - 24 hr 08/07/24 10:19 08/07/24 14:00 Temperature 98 F Pulse Rate 100 90 Respiratory Rate 19 14 Blood Pressure 120/88 114/69 Pulse Oximetry 98 96 Oxygen Delivery Method Room Air BMI result Body Mass Index 34.9 Const General: cooperative, healthy appearing and no acute distress Orientation/consciousness: patient oriented x3 Limitations: no limitations HENMT Other: Under the influence Head: Yes normal to inspection and Yes atraumatic Ears: hearing grossly normal bilaterally General nose exam: Normal external nose present Face and sinus: Yes normal facial exam Throat: Yes posterior oropharynx normal Eyes General: appearance normal, both eyes and all related structures EOM: EOMs intact bilaterally Neck Neck: Yes normal visual inspection and Yes no meningeal signs Resp Effort & Inspection: normal respiratory effort and no respiratory distress Auscultation: clear to auscultation bilaterally Cardio Rate: regular rate Heart sounds: S1 normal heart sound present and S2 normal heart sound present GI Inspection: Yes normal to inspection Palpation (GI): Soft to palpation, nontender, no guarding and not rigid Skin Rashes: no rashes Wounds: no wounds Neuro General: patient oriented x3, tone normal, no meningeal signs and CN's II-XI intact bilaterally Cranial nerves: Yes CN's II-XII intact bilaterally Extrem General: Yes normal to inspection Psych Thought content: suicidality, no homicidality and no hallucinations Course Course Course Narrative: -labs reassuring. Tox screen positive for cocaine, marijuana, and ethanol 70 > CARE team spoke with patient, he declined detox, was given a booklet of resources Results discussed with patient including worrisome signs and symptoms and strict return precautions, and when to return to the emergency department. They verbalized understanding and feel safe for discharge at this time. Medical Decision Making Medical Decision Making MDM Narrative: 49-year-old male with a past medical history of opiate use disorder, PTSD, mood disorder, substance abuse, depression, presenting to ED via EMS s/p being found on machinery, patient admits to cocaine and ETOH use. On exam vital signs stable, NAD, combative on ED arrival, and this information writer's evaluation, patient calm and cooperative, no evidence of trauma, appears under the influence, easily arousable, awake and alert, denies SI/HI. Concern for substance abuse vs EtOH. No signs of ETOH withdrawal at this time. Low suspicion for ICH or fractures Plan: EKG, tox screen, addiction medicine consult. Observe and re-evaluate for clinical sobriety Please refer to course for remaining clinical decision making, interpretation of labs/imaging results, and discussions with consultants and/or family members. Differential Diagnosis Differential Diagnoses: The differential diagnosis associated with the presentation includes As above Admission/Observation Consideration of admission/observation: Escalation of care including admission/observation considered Consult Healthcare Provider Management of the patient was discussed with: Behavioral Health Provider Lab Data MDM Lab Attestation statement: I reviewed the patient's lab results. 08/07/24 15:52 08/07/24 15:52 Labs: Lab Results 08/07/24 08/07/24 Range/Units 12:02 15:52 WBC 7.2 (4.8-10.8) X10*3/uL RBC 3.69 L (4.60-5.80) X10*6/uL Hgb 12.0 L (14.0-18.0) g/dl Hct 35.6 L (42.0-52.0) % MCV 96.5 (80.0-98.0) fL MCH 32.5 (27.0-33.0) pg MCHC 33.7 (31.0-36.0) g/dl RDW 14.3 (11.0-16.0) % Plt Count 316 (160-400) X10*3/uL MPV 9.0 L (9.4-12.4) fL Immature Gran % (Auto) 0.3 (0.0-0.4) % Neut % (Auto) 54.5 (45-73) % Lymph % (Auto) 32.6 (20-40) % [place] % (Auto) 10.1 (2-11) % Eos % (Auto) 2.4 (0-4) % Baso % (Auto) 0.1 (0-2) % Lymph # (Auto) 2.4 (1.2-4.9) X10*3/uL [place] # (Auto) 0.7 (0.1-1.2) X10*3/uL Eos # (Auto) 0.2 (0.0-0.4) X10*3/uL Baso # (Auto) 0.0 (0.0-0.2) X10*3/uL Abs Immat Gran (auto) 0.02 (0.00-0.03) X10*3/uL Absolute Neuts (auto) 3.9 (2.0-8.3) x10*3/uL Absolute Nucleated RBC 0.000 (0.0-0.012) X10*3/uL Nucleated RBC % (auto) 0.0 (0.0-0.2) /100WBC Sodium 143 (135-145) mmol/L Potassium 3.9 (3.3-5.1) mmol/L Chloride 111 H (96-108) mmol/L Carbon Dioxide 24 (22-29) mmol/L Anion Gap 12 (12-20) BUN 12 (9-16) mg/dL Creatinine 0.99 (0.5-1.4) mg/dL Estim Creat Clear Calc 95.7 Estimated GFR > 60 Random Glucose 94 (60-115) mg/dL Calcium 8.8 (8.4-10.2) mg/dL Salicylates < 5.0 L (15-30) mg/dL Urine Opiates Screen Not Detected (Not Detect) Ur Buprenorphine Scrn Not Detected (Not Detect) ng/mL Ur Oxycodone Screen Not Detected (Not Detect) ng/mL Urine Methadone Screen Not Detected (Not Detect) ng/mL Urine Fentanyl Screen Not Detected (Not Detect) Ur Barbiturates Screen Not Detected (Not Detect) Ur Phencyclidine Scrn Not Detected (Not Detect) Ur Amphetamines Screen Not Detected (Not Detect) U Benzodiazepines Scrn Not Detected (Not Detect) Urine Cocaine Screen POSITIVE H (Not Detect) U Marijuana (THC) Screen POSITIVE H (Not Detect) Ethyl Alcohol 70 mg/dL Independent Interpretation I performed an independent interpretation of an: EKG Independent Historian Clinical information obtained from an independent historian. History obtained from or confirmed by: EMS External Record Review External record reviewed: Inpatient record, Office record, Outpatient record, Prior outpatient labs, Prior outpatient radiology, Primary care record and Outside ED record Tests considered The following testing was considered but not selected: As above Chronic Conditions Patient?s care impacted by: Other Social Determinants Patient?s care significantly limited by Social Determinants of Health including: Inadequate housing, Low income, Alcoholism and drug addiction in family, Problems related to primary support group and Unemployment Discharge Plan Discharge Clinical Impression: Substance abuse, Alcoholic intoxication Patient Disposition: Home, Self-Care Instructions: Abuse of Alcohol (DC), Polysubstance Abuse (ED) Additional Instructions: Avoid alcohol and drug use this can kill you Follow-up with her doctor If your symptoms persist or worsen return to the emergency department Prescriptions: No Action buprenorphine-naloxone [Suboxone] 2-0.5 mg film 1 film sublingual DAILY Qty: 2 0RF loratadine 10 mg Tablet 10 mg PO DAILY 30 Days Qty: 30 0RF albuterol sulfate [Ventolin HFA] 90 mcg/actuation Hfa Aerosol Inhaler 2 puff inhalation Q4H PRN (Reason: Shortness Of Breath) 30 Days Qty: 6.7 1RF nicotine (polacrilex) 2 mg Gum 4 mg buccal Q2H PRN (Reason: Nicotine Cravings) 30 Days Qty: 100 0RF mirtazapine 7.5 mg Tablet 7.5 mg PO BEDTIME 30 Days Qty: 30 1RF perphenazine 4 mg Tablet 4 mg PO BID 30 Days Qty: 60 1RF perphenazine 2 mg Tablet 2 mg PO DAILY PRN (Reason: agitation) 30 Days Qty: 14 1RF fluticasone propionate 50 mcg/actuation [place],Suspension 2 spray intranasal DAILY PRN (Reason: nasal congetstion) 30 Days Qty: 16 0RF polyvinyl alcohol [Artificial Tears (polyvin alc)] 1.4 % Drops 2 drp ophthalmic-Left Q4H PRN (Reason: Dry Eyes) 30 Days Qty: 15 1RF Deep Sea Nasal 0.65 % Aerosol,[place] 1 spray intranasal Q1H PRN (Reason: Congestion) 30 Days Qty: 44 1RF Lubrifresh PM 83-15 % Ointment 1 appl ophthalmic-Left TID PRN (Reason: eye drynes ) 30 Days Qty: 3.5 0RF Protocol: Apply to: Apply to: left eye omeprazole 20 mg Capsule,Delayed Release(Dr/Ec) 20 mg PO DAILY 30 Days Qty: 30 1RF hydroxyzine pamoate 50 mg capsule 50 mg PO TID PRN (Reason: anxiety) 30 Days Qty: 60 0RF folic acid 1 mg tablet 1 mg PO DAILY 30 Days Qty: 30 0RF hydroxyzine pamoate 25 mg capsule 75 mg PO BEDTIME 30 Days Qty: 90 0RF acetaminophen 500 mg capsule 500 mg PO Q6H PRN (Reason: fever or pain) Qty: 20 0RF sennosides [senna] 8.6 mg tablet 8.6 mg PO BID PRN (Reason: constipation) Qty: 30 0RF Referrals: [facility] [Provider Group] Jennifer Nunez CNP [Nurse Practitioner] - Print Language: Icelandic
--- NOTE | 2024-08-07 11:20 | ECG_ITS ---
Test Reason : Cocaine use Blood Pressure : / mmHG Vent. Rate : 086 BPM Atrial Rate : 086 BPM P-R Int : 132 ms QRS Dur : 086 ms QT Int : 364 ms P-R-T Axes : 054 053 042 degrees QTc Int : 435 ms Normal sinus rhythm Normal ECG When compared with ECG of 08-NOV-2022 22:30, No significant change was found Referred By: Chikis Olivares Electronically Signed By:BRADEN CARPENTER
[2024-08-07 12:17] LABS: Amphetamine Screen Urine Not Detected (Not Detect); Barbiturates, Urine Not Detected (Not Detect); Benzodiazepines Screen Urine Not Detected (Not Detect); Buprenorphine Scr Not Detected (Not Detect); Cannabinoid Screen Urine POSITIVE (Not Detect); Cocaine Screen Urine POSITIVE (Not Detect); Fentanyl, urine Not Detected (Not Detect); Methadone Screen, Urine Not Detected (Not Detect); Opiate Screen Urine Not Detected (Not Detect); Oxycodone Screen Urine Not Detected (Not Detect); Phencyclidine Screen Urine Not Detected (Not Detect)
--- NOTE | 2024-08-07 12:20 | PC.NURSE ---
Assumed care of this patient at 1100, patient resting quietly on stretcher at this time, snoring, placed on continuous o2 sat by charge nurse Aggie as patient was see to desat while snoring. EKG and DUR obtained per order.
[2024-08-07 14:00] VITALS: BP 114/69; PULSE 90; RESP 14; O2SAT 96
[2024-08-07 15:57] LABS: MANUAL DIFF FLAG NO
[2024-08-07 15:58] LABS: Basophils Percent Auto 0.1 % (0-2); Eosinophils Absolute Auto 0.2 X10*3/uL (0.0-0.4); Eosinophils Percent Auto 2.4 % (0-4); Hematocrit 35.6 % (42.0-52.0); Imm Gran Abs Auto 0.02 X10*3/uL (0.00-0.03); Imm Gran Pct Auto 0.3 % (0.0-0.4); Lymphocytes Absolute Auto 2.4 X10*3/uL (1.2-4.9); Lymphocytes Percent Auto 32.6 % (20-40); Mean Corpuscular HGB Conc 33.7 g/dl (31.0-36.0); Mean Corpuscular Hemoglobin 32.5 pg (27.0-33.0); Mean Corpuscular Volume 96.5 fL (80.0-98.0); Monocytes Absolute Auto 0.7 X10*3/uL (0.1-1.2); Monocytes Percent Auto 10.1 % (2-11); Neutrophils Absolute Auto 3.9 x10*3/uL (2.0-8.3); Neutrophils Percent Auto 54.5 % (45-73); Platelet Count 316 X10*3/uL (160-400); Red Blood Count 3.69 X10*6/uL (4.60-5.80); Red Cell Distribution Width 14.3 % (11.0-16.0); White Blood Count 7.2 X10*3/uL (4.8-10.8)
[2024-08-07 16:09] LABS: Anion Gap 12 (12-20); Blood Urea Nitrogen 12 mg/dL (9-16); Calcium 8.8 mg/dL (8.4-10.2); Carbon Dioxide 24 mmol/L (22-29); Chloride 111 mmol/L (96-108); Creatinine Clr Calc Pharmacy 95.7; Estimated Glomerular Filt Rate > 60; Ethanol 70 mg/dL; Glucose Random 94 mg/dL (60-115); Potassium 3.9 mmol/L (3.3-5.1); Sodium 143 mmol/L (135-145)
[2024-08-07 16:18] LABS: Salicylate < 5.0 mg/dL (15-30)
[2024-08-07 16:38] VITALS: BP 143/85; PULSE 81; RESP 20; TEMP 36.6; O2SAT 99
[2024-08-07 18:04] VITALS: BP 143/85; PULSE 81; RESP 20; TEMP 36.6; O2SAT 99
== END 2024-08-07 18:05 | disposition home or self-care (01) ==
PROVIDERS: Physician Assistant; Emergency Provider Emergency Medicine Emergency Medical Services
DX: F19.10 Other psychoactive substance abuse, uncomplicated (principal); F10.220 Alcohol dependence with intoxication, uncomplicated; Y90.3 Blood alcohol level of 60-79 mg/100 ml; F39 Unspecified mood [affective] disorder; F43.10 Post-traumatic stress disorder, unspecified; F17.210 Nicotine dependence, cigarettes, uncomplicated; F11.20 Opioid dependence, uncomplicated; Z79.899 Other long term (current) drug therapy
CPT/HCPCS: 36415; 80048; 80179; 80307; 85025; 93005; 99285; S9485

== ENCOUNTER 2025-10-05 18:45 | Inpatient (IN) | payer OTHER, SELFPAY ==
[2025-10-05 19:00] VITALS: BP 168/100; PULSE 106; O2SAT 95; BMI 35.8
--- NOTE | 2025-10-05 19:29 | PC.NURSE ---
regional climate change analyst done in family room with RN and security present. pt was calm and cooperative. pt allowed to keep glasses to see and unopened bottle of gatorade. Security have pts pocket knife secured.
--- OUTSIDE RECORDS SUMMARY | 2025-10-05 19:32 | XMS_ITS | Clinical Summary ---
Author Organization [facility] [address] [facility] Address [address] [facility] FRANCINE Potter Phone Care Team Providers Care Wheel Installer Name Role Phone Roderick Neely MD Primary Care Provider Allergies No known active allergies Medications fluticasone propionate (FLONASE) 50 mcg/actuation nasal spray Administer 2 sprays into each nostril 1 (one) time each day. Shake gently. Before first use, prime pump. After use, clean tip and replace cap. 16 g 5 5 02/03/20 26 Active QUEtiapine (SeroqueL) 100 mg tablet Take 2 tablets (200 mg total) by mouth at bedtime. 180 each 1 5 Active omeprazole (PriLOSEC) [address] capsule Take 1 capsule (40 mg total) by mouth 1 (one) time each day. Do not crush or chew. 90 each 1 5 Active loratadine (CLARITIN) 10 mg tablet Take 1 tablet (10 mg total) by mouth 1 (one) time each day if needed for allergies. 90 tablet 1 5 Active polyethylene glycol (Golytely) 236-22.74-6.74 -5.86 gram solution Take 4L by mouth once for one dose. May substitue any PEG. Starting at 6PM the night before your procedure drink 1 8oz glasses at your own pace until you complete half of the gallon. Finish 2nd half of the gallon 5 hours before your procedure. 4000 mL Active bisacodyL (DULCOLAX) 5 mg EC tablet Take 2 tablets by mouth right before beginning bowel prep. See instructions provided by the office 2 tablet Active Active Problems Problem Noted Date Diagnosed Date Hypercholesterolemia 02/02/2025 Bipolar disease, chronic ([facility] V24, [facility] V 28) 02/02/2025 Substance abuse ([facility] V24, [facility] V28) 02/02 Gastroesophageal reflux disease 02/02/2025 Chronic rhinitis 02/02/2025 Class 2 severe obesity due t o excess calories with serious comorbidity and body mass index (BMI) of 36.0 to 36.9 in adult 02/02/2025 Encounters Date Type Department Care Team Description 08/22/2025 Telephone Adult Medicine [address] [id number] Roderick Neely MD from Last 3 Months Immunizations Immunization Administration Dates Next Due Influenza trivalent, 0.5mL (Fluad) 65yo and olde r 02/02/2025 Tdap Tetanus diptheria acell ular pertussis (Boostrix; Adacel) 7yo and older 02/02/2025 Surgical History Surgery Date Site/Laterality Comments NASAL FRACTURE SURGERY RETINAL DETACHMENT SURGERY Medical History Medical History Date Comments Hypercholesteremia GERD (gastroesophageal reflux disease) Sleep apnea Bipolar affective ([facility] V24, [facility] V28) Alcohol abuse Drug use Family History Medical History Relation Name Comments Colon cancer Father's Sister Diabetes type II Mother Mental illness Mother Sleep apnea Mother Relation Name Status Comments Father's Sister Mother Social History Tobacco Use Types Packs/Day Years Used Date Smoking Tobacco: Every Day Cigarettes Smokeless Tobacco: Former Quit: 12/01/2014 Tobacco Cessation:Ready to Q uit: Not Asked; Counseling Given: Not Answered Alcohol Use Standard Drinks/Week Comments Yes 0 (1 standard drink = 0.6 oz pur e alcohol) PREVIOUS ALCOHOL ABUSE Housing Instability Answer Date Recorde d Are you worried that in the next 2 months you may not have stable housing? No 02/02/2025 Food Access & Nutrition Answer Date Rec orded Do you have access to a vari ety of food including fruits and vegetables? Yes 02/02/2025 Health Literacy Answer Date Recorded How often do you need to hav e someone help you when you read instructions, pamphlets, or other written material from your doctor or pharmacy? Never 02/02/2025 Caregiver: How often do you need to have someone help you when you read instructions, pamphlets, or other written material from your doctor or pharmacy? Not on file 02/02/2025 Financial Risk Answer Date Recorded How hard is it for you to pa y for the very basics like food, housing, medical care, and air conditioning / heating? Not very hard 02/02/2025 Transportation Answer Date Recorded Has the lack of transportati on kept you from meetings, work, or from getting things needed for daily living? No Has the lack of transportati on kept you from medical appointments or from getting medications? No 02/02/2025 Social Isolation Answer Date Recorded How often do you feel lonely or isolated from th ose around you? Never 02/02/2025 Food Risk Answer Date Recorded Within the past 12 months we worried whether our food would run out before we got money to buy more. Never true 02/02/2025 Within the past 12 months th e food we bought just didn't last and we didn't have money to get more. Never true 02/02/2025 Dependent Care Answer Date Recorded Do you need help finding or paying for care for your loved ones. For example, child care worker or elderly care for an older adult? No 02/02/2025 Education Answer Date Recorded Do you think completing more education or training, like finishing a GED, going to college, or learning a trade, would be helpful for you? No 02/02/2025 Employment and Income Answer Date Recor ded During the last four weeks, have you been actively looking for work? No 02/02/2025 Living Situation Answer Date Recorded What is your living situation? Unrecognized valu e 02/02/2025 Interpersonal Safety Answer Date Record ed Physical Abuse Unrecognized value 03/07/2025 Verbal Abuse Unrecognized value 03/07/2025 Sex and Gender Information Value Date Recorded Sex Assigned at Male 03/07/2025 9:02 AM EDT Legal Sex Male 12:18 AM EST Gender Identity Male 03/07/2025 9:02 AM EDT Sexual Orientation Straight 03/07/2025 9: 02 AM EDT Obstetrics History Last Filed Vital Signs Vital Sign Reading Time Taken Comments Blood Pressure 127/90 03/07/2025 10:34 AM EDT Pulse 76 03/07/2025 10:34 AM EDT Temperature 35.9 C (96.7 F) 03/07/2025 9:44 AM EDT Respiratory Rate 16 03/07/2025 10:34 AM EDT Oxygen Saturation 100% 03/07/2025 10:34 AM EDT Inhaled Oxygen Concentration - - Weight 102 kg (225 lb) 03/07/2025 9:44 AM EDT Height 165.1 cm (5' 5 ) 03/07/2025 9:44 AM EDT Body Mass Index 37.44 03/07/2025 9:44 AM EDT Plan of Treatment Health Maintenance Due Date Last Done Comments Pneumococcal Vaccine: 50+ Years (1 of 2 - PCV) 1994 RSV Immunization Adult Patients (1 - Risk 50-74 years 1-dose series) 2025 Zoster Vaccines (1 of 2) 2025 COVID-19 Vaccine (1 - 2023- season) 2025 Influenza Vaccine (#1) 2025 02/02/2025, 2022 Social Influencers of Health Screening 02/02/2026 02/02/2025 Cholesterol Screening (Lipid Panel) 02/03/2030 02/03/2025, 03/27/2024, 03/27/2024, Additional history exists DTaP,Tdap,and Td Vaccines (3 - Td or Tdap) 02/02/2035 02/02/2025, 11/23/2019 Colorectal Cancer Screening: Colonoscopy 03/07/2035 03/07/2025 Depression Screening Completed 02/02/2025 HIV Screening Completed 02/03/2025 Hepatitis C Screening Completed 02/03/2025, 023 HIB Vaccines Aged Out No longer eligi ble based on patient's age to complete this topic HPV Vaccines Aged Out No longer eligi ble based on patient's age to complete this topic Hepatitis A Vaccines Discontinued Hepatitis B Vaccines Discontinued IPV Vaccines Aged Out No longer eligi ble based on patient's age to complete this topic MMR Vaccines Aged Out No longer eligi ble based on patient's age to complete this topic Meningococcal ACWY Vaccine Aged Out N o longer eligible based on patient's age to complete this topic Meningococcal B Vaccine Aged Out No l onger eligible based on patient's age to complete this topic RSV Immunization Patients Under 20 months Aged Out No longer eligible based on patient's age to complete this topic Varicella Vaccines Aged Out No longer eligible based on patient's age to complete this topic Procedures Procedure Name Priority Date/Time Associated Diagnosis Comments COLONOSCOPY Routine 03/07/2025 10:13 AM EDT Colon cancer screening HEPATITIS C ANTIBODY Routine 02/03/2025 10:46 AM EST Need for hepatitis C screening test HIV 1, 2 ANTIBODY, P24 ANTIGEN WITH REFLEX TO DIFFERENTIATION Routine 02/03/2025 10:46 AM EST Encounter for screening for HIV LIPID PANEL WITH REFLEX TO DIRECT LDL Routine 02/03/2025 10:46 AM EST Hypercholesterolem ia from Last 3 Months or Most Recently Relevant to Health Maintenance Results * COLONOSCOPY Anesthesia - MAC; [facility] ENDOSCOPY (03/07/2025 10:13 AM EDT) Anatomical Region Laterality Modality Endoscopy 03/07/2025 9:55 AM EDT Impressions 03/07/2025 10:14 AM EDT - One 4 mm polyp in the rectum, removed with a cold snare. Resected and retrieved. - The examination was otherwise normal on direct and retroflexion views. Recommendation: - Patient has a contact number available for emergencies. The signs and symptoms of potential delayed complications were discussed with the patient. Return to normal activities tomorrow. Written discharge instructions were provided to the patient. - Resume previous diet. - Continue present medications. - Await pathology results. - Repeat colonoscopy in 7-10 years for surveillance. Narrative 03/07/2025 10:14 AM EDT [facility] GI Patient Name: Juan Reardon Procedure Date: 03/07/2025 9:55 AM Date of : 1975 Age: 49 Room: ROOM 17 Gender: Male Note Status: Finalized Attending MD: Irineo Reddy MD, Procedure Date No Time: 03/07/2025 Procedure: Colonoscopy Indications: Screening for colorectal malignant neoplasm Providers: Irineo Reddy MD Referring MD: Irineo Reddy MD Medicines: Monitored Anesthesia Care Complications: No immediate complications. Estimated Blood Loss: Estimated blood loss: none. Procedure: After I obtained informed consent, the scope was passed under direct vision. Throughout the procedure, the patient's blood pressure, pulse, and oxygen saturations were monitored continuously. The Colonoscope was introduced through the anus and advanced to the cecum, identified by appendiceal orifice and ileocecal valve. The colonoscopy was performed without difficulty. The patient tolerated the procedure well. The quality of the bowel preparation was good. Findings: A 4 mm polyp was found in the rectum. The polyp was sessile. The polyp was removed with a cold snare. Resection and retrieval were complete. The exam was otherwise without abnormality on direct and retroflexion views. Procedure Code(s): --- Professional --- 78733, Colonoscopy, flexible; with removal of tumor(s), polyp(s), or other lesion(s) by snare technique Diagnosis Code(s): --- Professional --- D12.8, Benign neoplasm of rectum Z12.11, Encounter for screening for malignant neoplasm of colon CPT copyright 2020 [employer] [employer]. All rights reserved. The codes documented in this report are preliminary and upon associate agent insurance sales review may be revised to meet current compliance requirements. MD Irineo Herr MD 03/07/2025 10:14:30 AM This report has been signed electronically.Irineo Reddy MD Number of Addenda: 0 Note Initiated On: 03/07/2025 9:55 AM Scope In: Scope Out: Endoscopy Department at [facility] - [address] [place] [id number] Procedure Note Irineo Reddy MD - 03/07/2025 [facility] GI Patient Name: Juan Reardon Procedure Date: 03/07/2025 9:55 AM Date of : 1975 Age: 49 Room: ROOM 17 Gender: Male Note Status: Finalized Attending MD: Irineo Reddy MD, Procedure Date No Time: 03/07/2025 Procedure: Colonoscopy Indications: Screening for colorectal malignant neoplasm Providers: Irineo Reddy MD Referring MD: Irineo Reddy MD Medicines: Monitored Anesthesia Care Complications: No immediate complications. Estimated Blood Loss: Estimated blood loss: none. Procedure: After I obtained informed consent, the scope was passed under direct vision. Throughout theprocedure, the patient's blood pressure, pulse, and oxygen saturations were monitored continuously. The Colonoscope was introduced through the anus and advanced to the cecum, identified by appendiceal orifice and ileocecal valve. The colonoscopy was performed without difficulty. The patient tolerated the procedure well. The quality of the bowel preparation was good. Findings: A 4 mm polyp was found in the rectum. The polyp was sessile. The polyp was removed with a cold snare. Resection and retrieval were complete. The exam was otherwise without abnormality ondirect and retroflexion views. Procedure Code(s): --- Professional --- 19196, Colonoscopy, flexible; with removal of tumor(s), polyp(s), or other lesion(s) by snare technique Diagnosis Code(s): --- Professional --- D12.8, Benign neoplasm of rectum Z12.11, Encounter for screening for malignantneoplasm of colon CPT copyright 2020 [employer] [employer]. All rights reserved. The codes documented in this report are preliminary and upon associate agent insurance sales reviewmay be revised to meet current compliance requirements. MD Irineo Herr MD 03/07/2025 10:14:30 AM This report has been signed electronically.Irineo Reddy MD Number of Addenda: 0 Note Initiated On: 03/07/2025 9:55 AM Scope In: Scope Out: Endoscopy Department at [facility] - [address] [place] [id number] IMPRESSION: - One 4 mm polyp in the rectum, removed with a cold snare. Resected and retrieved. - The examination was otherwise normal on directand retroflexion views. Recommendation: - Patient has a contact number available for emergencies. The signs and symptoms of potential delayed complications were discussed with thepatient. Return to normal activities tomorrow. Written discharge instructions were provided to thepatient. - Resume previous diet. - Continue present medications. - Await pathology results. - Repeat colonoscopy in 7-10 years [facility]. Irineo Reddy MD GI~PROCEDURE ORDERABLES Final R esult * Hepatitis C antibody (02/03/2025 10:46 AM EST) Hepatitis C Antibody Negative Negative LAB CHEMISTRY METHOD 02/03/2025 3:05 PM EST [facility] Blood Venous blood specimen / Unknown Venipuncture / Unknown 02/03/2025 10:46 AM EST 02/03/2025 10:46 AM EST us Roderick Neely MD LAB BLOOD ORDERABLES F inal Result Performing Organization Address City/[facility]/ZIP Co de Phone Number [facility] [address] [place] [address], [place] [phone] * HIV 1,2 antibody, p24 antigen with reflex to differentiation (02/03/2025 10:46 AM EST) [facility] HIV Combo AB/AG Negative Negative LAB CHEMISTRY METHOD 02/03/2025 3:07 PM EST [facility] Blood Venous blood specimen / Unknown Venipuncture / Unknown 02/03/2025 10:46 AM EST 02/03/2025 10:46 AM EST Narrative [facility] - 02/03/2025 3:07 PM EST This assay is a 4th generation assay allowing for earlier detection of HIV infection by detecting the presence of the HIV-1 p24 antigen as well as the traditional antibodies to HIV type 1 (including group O) and type 2. Use of a 4th generation assay is the current CDC recommendation for HIV screening. us Roderick Neely MD LAB BLOOD ORDERABLES F inal Result [facility] [address] [place] [address], [place] [phone] * Lipid panel with reflex to direct LDL (02/03/2025 10:46 AM EST) Cholesterol 151 0 - 200 mg/dL LAB CHEMISTRY METHOD 02/03/2025 2:29 PM EST [facility] Triglycerides 84 0 - 150 mg/dL LAB CHEMISTRY METHOD 02/03/2025 2:29 PM EST [facility] HDL 53 >=40 mg/dL LAB CHEMISTRY METHOD 02/03/2025 2:29 PM EST [facility] LDL Calculated 81 0 - 100 mg/dL LAB CHEMISTRY METHOD 02/03/2025 2:29 PM EST [facility] VLDL Cholesterol Salty 16.8 mg/dL LAB CHEMISTRY METHOD 02/03/2025 2:29 PM EST [facility] Non HDL Chol. 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
--- OUTSIDE RECORDS SUMMARY | 2025-10-05 19:32 | XMS_ITS | Patient Health Record ---
Author Organization [employer] Address [address] [address] [place] [address] Care Team Providers Care Field Hauler Name Role Phone Balbir Almanza [phone] Allergies No Known Allergies Reason For Referral No Information Medications Medication SIG (Take, Route, Frequency, Duration) Notes Start Date End Date Status Omeprazole 20 MG Capsule Delayed Release 1 capsule 30 minutes before morning meal Orally Once a day; Duration: 14 days 01/10/2022 Unknown Celecoxib 200 MG Capsule 1 capsule with food Orally Once a day; Duration: 14 days 01/10/2022 Unknown Famotidine 20 MG Tablet 1 tablet at bedt lizy as needed Orally Once a day; Duration: 30 day(s) 01/04/2022 Unknown Immunizations Vaccine Route Administration Date Status Comme nts COVID-19 Vaccine Pfizer IM Intramuscular 01/23/2022 Administered nd: [address] -1 COVID-19 Vaccine Pfizer IM Intramuscular 02/13/2022 Administered ndc: [address] -1 Social History Tobacco Use: Social History Observation Description Date Details (start date - stop date) Former Smoker NA - NA Social History Tobacco Use Social Info Question Answer Notes Tobacco Use/Smoking Are you a former smoker How long has it been since you last smoked? < 1 month Tobacco use other than smoking: Are you an other tobac co user? No Drugs/Alcohol: Social Info Question Answer Notes Alcohol Screen (Audit-C) Did you have a drink containing alcohol in the past year? Yes How often did you have a drink containing alcohol in the past year? Monthly or less (1 point) How many drinks did you have on a typical day when you were drinking in the past year? 1 or 2 drinks (0 point) Points 1 Interpretation Negative Drugs Have you used drugs other than those for medical reasons in the past 12 months? No Caffeine Intake: 2-3 cups per day Additional Details Category Social Info Options Details Drugs/Alcohol: Do you smoke marijuana? De nies Do you drink alcohol? 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) Active confirmed Plan Of Treatment Future Test Test Name Order Date Urinalysis, Routine 01/23/2022 Albumin/Creatinine Ratio, Random Urine 0 01/23/2022 Vitamin D, 25-Hydroxy 02/13/2022 Allergen Profile, Food 02/13/2022 Respiratory Allergen Profile Zone 4 with reflex 02/13/2022 Insurance Providers Payer Name Payer Address Payer Phone Subscriber Number Group Number Insured Name Patient Relationship to Insured Coverage Start Date Coverage End Date [facility] [address] [address] [place] [address] [id number] JOSIE GALLAGHER Self - patient is the insured Medicaid of [place] [address] [place] [phone] [id number] JOISE GALLAGHER Self - patient is the insured Medical (General) History Medical History History ICD Code GERD Surgical History Surgery Date(Month/Year) left eye surgery
--- OUTSIDE RECORDS SUMMARY | 2025-10-05 19:32 | XMS_ITS | Patient Health Record ---
Author Organization [employer] [facility] Address [address] [facility] [address] [place] [address] Care Team Providers Care Historic Sites Supervisor Name Role Phone Ivan Tiwari Primary Care Provider Allergies No Known Allergies Reason For Referral No Information Medications Medication SIG (Take, Route, Frequency, Duration) Notes Start Date End Date Status Iron (Ferrous Sulfate) 325 (65 Fe) MG 1 tablet Orally Once a day; Duration: 30 day(s) 04/26/2021 Not-Taking Vitamin C 1000 MG 1 tablet Orally Once a day; Duration: 30 day(s) 04/26/2021 Active Omeprazole Magnesium 20.6 (20 Base) MG 1 capsule 30 minutes before morning meal Orally Once a day; Duration: 30 day(s) 03/08/2021 Not-Taking Gabapentin 300 MG 1 capsule Orally twi ce a day; Duration: 30 day(s) 03/08/2021 Not-Taking Atorvastatin Calcium 40 MG 1 tablet Oral ly Once a day; Duration: 30 day(s) 03/08/2021 Active Omeprazole 40 MG 1 capsule 30 minutes before morning meal Orally Once a day; Duration: 30 Active Ergocalciferol 1.25 MG (85416 UT) 1 capsule Orally once a week; Duration: 30 day(s) 04/04/2021 Active Social History Tobacco Use: Social History Observation Description Date Details (start date - stop date) Former Smoker 12/01/1990 - NA Tobacco Use/Smoking Question Answer Notes Are you a: former smoker When did you start smoking? 12/01/1990 Alcohol Screen Question Answer Notes Did you have a drink containing alcohol in the p ast year? Yes Points 0 Interpretation Negative Sexual History Question Answer Notes Had sex in the past 12 months (vaginal, oral, or anal)? No Have you ever had a Sexually transmitted disease ? No Problems Problem Type SNOMED Code ICD Code Onset Dates Problem Status W/U Status Risk Notes Problem Morbid obesity (381357152) Morbid obesity (E66.01) Active confirmed Problem Acid reflux (790727541) Acid reflux (K21.9) Active confirmed Problem Essential hypertension (01523555) Essential hypertension (I10) Active confirmed Problem Anxiety (96966472) Anxiety (F41.9) Active confirmed Problem Posttraumatic stress disorder (01345722) PTSD (post-traumatic stress disorder) (F43.10) Active confirmed Problem Body mass index 40+ - severely obese (116967252) Adult BMI 40.0-44.9 kg/sq m (Z68.41) Active confirmed Problem Food allergy (509953575) Food allergy (Z91.018) Active confirmed Problem Retinal disorder (92915066) Unspecified retinal disorder (H35.9) Active confirmed Problem Iron deficiency anemia (81920797) Iron deficiency anemia, unspecified iron deficiency anemia type (D50.9) Active confirmed Problem Type II diabetes mellitus without complication (397804865) Type 2 diabetes mellitus without complication, without long-term current use of insulin (E11.9) Active confirmed Problem Atrophic gastritis (29961451) Chronic gastritis without bleeding, unspecified gastritis type (K29.50) Active confirmed Problem Gluten intolerance (4527312767) Gluten intolerance (K90.41) Active confirmed Problem Evaluation of test results (procedure) (951959862) Encounter to discuss test results (Z71.2) Active confirmed Plan Of Treatment Pending Test Test Name Order Date URINALYSIS, COMPLETE W/REFLEX TO CULTURE 03/08/2021 Future Test Test Name Order Date urine culture global [id number] 05/16/20 21 PSA Global [id number] 05/16/2021 CBC with DIFF/PLT Global [id number] VITAMIN B12/FOLATE, SERUM PANEL 05/16/20 21 RETICULOCYTE COUNT/793 05/16/2021 URINALYSIS IN HOUSE 05/16/2021 IRON, TIBC AND FERRITIN PANEL 05/16/2021 Insurance Providers Payer Name Payer Address Payer Phone Subscriber Number Group Number Insured Name Patient Relationship to Insured Coverage Start Date Coverage End Date [employer]/ [employer] D [address] [address] [place] [phone] [id number] Juan Davis Self - patient is the insured Medical (General) History Medical History History ICD Code GERD attention deficit hyperactivity disorder sleep apnea PTSD Surgical History Surgery Date(Month/Year) retina eye sx 2020 Hospitalization History Reason Date(Month/Year) No hospitalization history documented.
[2025-10-05 19:57] LABS: MANUAL DIFF FLAG NO
[2025-10-05 20:02] LABS: Hematocrit 38.7 % (42.0-52.0); Hemoglobin 12.7 g/dl (14.0-18.0); Imm Gran Abs Auto 0.03 X10*3/uL (0.00-0.03); Imm Gran Pct Auto 0.4 % (0.0-0.4); Lymphocytes Absolute Auto 1.0 X10*3/uL (1.2-4.9); Mean Corpuscular HGB Conc 32.8 g/dl (31.0-36.0); Mean Corpuscular Hemoglobin 31.4 pg (27.0-33.0); Mean Corpuscular Volume 95.6 fL (80.0-98.0); NRBC Abs Auto 0.000 X10*3/uL (0.0-0.012); NRBC Pct Auto 0.0 /100WBC (0.0-0.2); Platelet Count 300 X10*3/uL (160-400); Red Blood Count 4.05 X10*6/uL (4.60-5.80); White Blood Count 7.9 X10*3/uL (4.8-10.8)
[2025-10-05 20:11] LABS: Alanine Aminotransferase 32 U/L (0-40); Albumin Level 4.1 g/dL (3.5-5.0); Alkaline Phosphatase 96 U/L (39-117); Anion Gap 16 (12-20); Aspartate Amino Transferase 55 U/L (5-37); Blood Urea Nitrogen 16 mg/dL (9-16); Calcium 8.5 mg/dL (8.4-10.2); Carbon Dioxide 22 mmol/L (22-29); Chloride 106 mmol/L (96-108); Creatinine Clr Calc Pharmacy 96.8; Estimated Glomerular Filt Rate > 60; Potassium 4.0 mmol/L (3.3-5.1); Sodium 140 mmol/L (135-145); Total Protein 7.4 g/dL (6.5-8.0)
--- NOTE | 2025-10-05 21:29 | PC.NURSE ---
rn called lab to add BAL to already drawn labs- it was never added so RN put another order
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
[2025-10-06 05:01] LABS: Appearance Urine Clear; Glucose Urine UA Negative (Negative); PH 5.5 (5.0-9.0); Specific Gravity - Urine >= 1.030 (1.005-1.025); UMIC TRIGGER UACC YES
[2025-10-06 05:02] VITALS: BP 134/80; PULSE 112; RESP 18; TEMP 37.6; O2SAT 97
[2025-10-06 05:03] LABS: UACC Culture Trigger YES
[2025-10-06 05:13] LABS: Cannabinoid Screen Urine POSITIVE (Not Detect)
--- NOTE | 2025-10-06 06:03 | PC.NURSE ---
Report received from Fanny WYATT. recovery collector completed in [place]. Belongings secured. Patient presents with irritable edge and stated I got asked all these questions before, just let me sleep. Endorses passive SI, no plan/intent. Denies HI/AVH. Agreeable to alert staff if feeling unsafe. Med req complete per patient. Reports cocaine and marijuana use. When asked about ETOH, pt stated I drink ok. I last drank today and if you're gonna ask me how much a day I'm not gonna answer. CIWA initiated, not currently scoring. Denied current pain/discomfort. 15 minute checks initiated. Plan of care ongoing...
--- NOTE | 2025-10-06 08:04 | PC.NURSE ---
Assumed care, report received. Pt was provided breakfast, he is currently meeting with the care team.
[2025-10-06 08:24] VITALS: BP 112/62; PULSE 112; TEMP 36.6; O2SAT 94
--- NOTE | 2025-10-06 08:41 | MHC.CARE ---
Pt meets the criteria for IPLOC and will be placed on a Section 12a. ED provider in agreement.
--- NOTE | 2025-10-06 11:00 | ECG_ITS ---
Test Reason : check qtc Blood Pressure : */* mmHG Vent. Rate : 105 BPM Atrial Rate : 105 BPM P-R Int : 124 ms QRS Dur : 80 ms QT Int : 332 ms P-R-T Axes : 63 53 46 degrees QTcB Int : 438 ms Sinus tachycardia Otherwise normal ECG When compared with ECG of 07-Aug-2024 11:52, No significant change was found Referred By: Deondre Mcadams Electronically Signed By: Greg Shepard
--- NOTE | 2025-10-06 12:10 | PHA.MEDREC ---
Addendum entered by Arlin Bergman RPh 10/06/25 13:23: REVIEWED BY PHARMACIST Original Note: Pharmacy Consult ? Medication Reconciliation Pharmacy reviewed med rec done by nursing. Nursing confirmed pt taking Benadryl 50mg 2 caps (50mg) @BED and Ziprasidone 80mg at bedtime. Pt confirmed hes also taking Omeprazole for his stomach, Flonase as needed for nasal congestion and Loratadine as needed for allergies; claims shows those were last filled 06/30 for 90 days.
[2025-10-06 15:00] VITALS: BP 134/78; PULSE 117; RESP 14; TEMP 37.1; O2SAT 96; BMI 34.5
--- NOTE | 2025-10-06 16:15 | HO.PSYADMNOT ---
HPI Date of Service: 10/06/25 Chief Complaint: SI Sources of Information: patient interviewed, chart reviewed and crisis/core team assessment reviewed HPI Subjective Notes: [place] Warning and Conditional Voluntary Narrative: Patient is a 50 year old male with hx of MDD, PTSD, opioid use d/o, cocaine use d/o and alcohol use d/o who presented to ER d/t suicidal and homicidal ideation with no plan secondary to chronic housing instability and polysubstance use. Per crisis report, patient was brought in by ambulance to ER secondary to endorsing SI/HI with no plan. Patient reported using cocaine yesterday and alcohol prior to arrival. During assessment, patient endorses SI with any way I could do it , as a plan. Endorses HI at times with no plan or intent. Denies AH/VH. History of 2 prior suicide attempts in 2004 in 2010. History of chronic housing instability and polysubstance use. Patient reports he has been not taking his psychiatric medications for the last 2 weeks and would like to be restarted. History of multiple inpatient psychiatric hospitalizations. History of detox admissions. Utox positive for cocaine, cannabis and alcohol. He reports sleep and appetite are good. During admission assessment, pt presents alert and oriented x3. calm and cooperative. Patient reports feeling depressed ; pt stated, My situation I'm in is making me suicidal. I'm going through a lot of mental issues with no where to go. I didn't have my meds for 2 weeks after I got out of assisted. I left the [employer] because it make me feel like I was in intermediate . Patient reports suicidal ideation with no plan. He reports thoughts of hurting people ; pt stated, I feel paranoid about people trying to hurt me. That's when I get those thoughts . denies AH/VH. Patient reports he was released from assisted a couple of weeks ago and has not been taking his medications for the last 2 weeks. Patient reports he wants to get into a program and be restarted on my meds . Past Psychiatric History: History of multiple inpatient psychiatric hospitalizations. Does not have outpatient psychiatric providers. History of 2 prior suicide attempts. Denies history of SIB. Medical Evaluation Reviewed: Yes [facility] Medical History Opioid use disorder Post-traumatic stress disorder, chronic Mood disorder Substance abuse Depression Family History: Family history of bipolar disorder. Social History: Homeless. . No kids. Disability. Highest level of education completed 8th grade. Substance History: U tox positive for cocaine and marijuana. Patient reports alcohol use. Trauma History: yes Diagnostics Vital Signs (24Hr): Vital Signs - 24 hr 10/06/25 05:02 10/06/25 08:24 Temperature 99.7 F 97.8 F Pulse Rate 112 H 112 H Respiratory Rate 18 Blood Pressure 134/80 112/62 Pulse Oximetry 97 94 Oxygen Delivery Method Room Air Room Air BMI result Body Mass Index 35.8 Labs 10/05/25 19:53 10/05/25 19:53 Labs: Laboratory Results - last 48 hr 10/05/25 10/06/25 10/06/25 19:53 04:54 04:55 WBC 7.9 RBC 4.05 L Hgb 12.7 L Hct 38.7 L MCV 95.6 MCH 31.4 MCHC 32.8 RDW 13.3 Plt Count 300 MPV 9.0 L Immature Gran % (Auto) 0.4 Neut % (Auto) 79.6 H Lymph % (Auto) 12.9 L [place] % (Auto) 7.1 Eos % (Auto) 0.0 Baso % (Auto) 0.0 Lymph # (Auto) 1.0 L [place] # (Auto) 0.6 Eos # (Auto) 0.0 Baso # (Auto) 0.0 Abs Immat Gran (auto) 0.03 Absolute Neuts (auto) 6.3 Absolute Nucleated RBC 0.000 Nucleated RBC % (auto) 0.0 Sodium 140 Potassium 4.0 Chloride 106 Carbon Dioxide 22 Anion Gap 16 BUN 16 Creatinine 0.98 Estim Creat Clear Calc 96.8 Estimated GFR > 60 Random Glucose 158 H Calcium 8.5 Total Bilirubin 0.3 AST 55 H ALT 32 Alkaline Phosphatase 96 Total Protein 7.4 Albumin 4.1 Urine Color Yellow Urine Appearance Clear Urine pH 5.5 Ur Specific [place] >= 1.030 H Urine Protein Trace Urine Glucose (UA) Negative Urine Ketones Trace Urine Blood Negative Urine Nitrite Negative Ur Leukocyte Esterase Small (1+) H Urine RBC 0-2 Urine WBC 11-20 H Ur Squamous Epith Cells 0-2 Urine Bacteria None Seen Hyaline Casts 0-2 Urine Opiates Screen Not Detected Ur Buprenorphine Scrn Not Detected Ur Oxycodone Screen Not Detected Urine Methadone Screen Not Detected Urine Fentanyl Screen Not Detected Ur Barbiturates Screen Not Detected Ur Phencyclidine Scrn Not Detected Ur Amphetamines Screen Not Detected U Benzodiazepines Scrn Not Detected Urine Cocaine Screen POSITIVE H U Marijuana (THC) Screen POSITIVE H Ethyl Alcohol 134 Meds/Allergies Meds Home Medications ?Medication ?Instructions ?Recorded ?Confirmed ?Type diphenhydramine HCl 50 mg capsule 100 mg PO BEDTIME 10/05/25 10/05/25 History ziprasidone HCl 80 mg capsule 80 mg PO BEDTIME 10/05/25 10/05/25 History (Geodon) fluticasone propionate 50 2 spray intranasal DAILY PRN Nasal 10/06/25 10/06/25 History mcg/actuation nasal Congestion spray,suspension loratadine 10 mg tablet 10 mg PO DAILY PRN allergies 10/06/25 10/06/25 History omeprazole 40 mg capsule,delayed 40 mg PO DAILY 10/06/25 10/06/25 History release Allergies Allergies Allergy/AdvReac Type Severity Reaction Status Date / Time No Known Allergies (No Known Allergy Verified 10/05/25 19:02 Allergies*) Mental Status Exam Mental Status Exam Patient Appearance: Appropriate Patient Orientation: Person, Place, Time and Situation Level of Consciousness: Awake and Alert Patient Behavior: Appropriate, Cooperative and Good Eye Contact Mood Description: Calm and Depressed Affect Description: Constricted Ability to Follow Directions: Good Speech Pattern: Clear Memory Description: Intact Hallucinations: None Delusions: Not Present Thought Process: Intact and Goal Oriented Thought Content: positive for Intact, positive for Suicidal Ideation and positive for Homicidal Ideation Judgement: Poor Assessment & Plan Assessment & Plan (1) MDD (major depressive disorder): Status: Acute Code(s): F32.9 - Major depressive disorder, single episode, unspecified (2) Post-traumatic stress disorder, chronic: Status: Acute Code(s): F43.12 - Post-traumatic stress disorder, chronic (3) Cocaine use disorder: Status: Acute Code(s): F14.10 - Cocaine abuse, uncomplicated (4) Alcohol use disorder: Status: Acute Code(s): F10.90 - Alcohol use, unspecified, uncomplicated Plan Patient is a 50 year old male with hx of MDD, PTSD, opioid use d/o, cocaine use d/o and alcohol use d/o who presented to ER d/t suicidal and homicidal ideation with no plan secondary to chronic housing instability and polysubstance use. Plan: CV 15 minute safety checks Continue home medications Obtain collateral Encourage groups Referral to outpatient psychiatric providers Referral to substance abuse program Discharge planning Patient educated on: diagnosis and medication risk/benefits Reason for continued inpatient stay Substantial Risk for: harm to self, harm to others and med/psych decompensation Statement Statement: I have reviewed the history and physical and performed a pertinent examination on my patient. No changes have occurred unless specified. If the History and Physical was not performed prior to admission, the Hospitalist's service will be consulted for completing the admission physical. Time Spent With Patient Time: Total time managing care of this patient today _60___ minutes.
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
[2025-10-06 20:00] VITALS: BP 130/61; PULSE 93; RESP 18; TEMP 36.7; O2SAT 96
--- NOTE | 2025-10-06 23:55 | PC.NURSE ---
10/06/25 - Pt stated he did not need want to be woken up for CIWA assessments. Pt denied w/drawal sx. Pt reported he was not drinking that much and did not need a ciwa
[2025-10-07 08:00] VITALS: BP 116/71; PULSE 104; RESP 18; TEMP 37.2; O2SAT 94
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
[2025-10-07 08:27] LABS: Alanine Aminotransferase 31 U/L (0-40); Albumin Level 3.8 g/dL (3.5-5.0); Alkaline Phosphatase 94 U/L (39-117); Anion Gap 11 (12-20); Aspartate Amino Transferase 39 U/L (5-37); Blood Urea Nitrogen 11 mg/dL (9-16); Calcium 8.9 mg/dL (8.4-10.2); Carbon Dioxide 25 mmol/L (22-29); Chloride 108 mmol/L (96-108); Cholesterol 148 mg/dL (<200); Creatinine Clr Calc Pharmacy 98.0; Estimated Glomerular Filt Rate > 60; HDL Cholesterol 38 mg/dL (>40); Potassium 4.1 mmol/L (3.3-5.1); Sodium 140 mmol/L (135-145); Total Protein 7.3 g/dL (6.5-8.0); Triglycerides 102 mg/dL (<150)
--- NOTE | 2025-10-07 08:43 | HO.PSYCHPN ---
Subjective Subjective Date of Service: 10/07/25 Reason For Visit: SI Subjective Notes: Conditional Voluntary Interim History: Keeping to self. Patient reports feeling anxious about where I'm going to go after here ; Patient reports he is feeling a little better ; focused on going to a substance abuse program. denies SI/HI/VH/AH. He reports sleeping well last night. denies any withdrawal symptoms; DC CIWA. encouraged to attend groups. continue tx plan. Medication Compliance: Yes Side effects from medications: No Attending Groups: No Mental Status Exam Mental Status Exam Narrative: Pt is alert and oriented; behavior is cooperative and calm; dressed in casual attire; mood is described as anxious ; eye contact appropriate; Speech is normal rate, volume and not pressured; thought process is organized and goal directed; Thought content is on tx; denies SI/HI/VH/AH. Diagnostics Vital Signs (24Hr): Vital Signs - 24 hr 10/06/25 15:00 10/06/25 20:00 10/07/25 08:00 Temperature 98.8 F 98.0 F 99.0 F Pulse Rate 117 H 93 104 H Respiratory Rate 14 18 18 Blood Pressure 134/78 130/61 116/71 Pulse Oximetry 96 96 94 Oxygen Delivery Method Room Air Room Air Room Air BMI result Body Mass Index 34.5 Labs 10/05/25 19:53 10/07/25 07:54 Labs: Laboratory Results - last 48 hr 10/05/25 10/06/25 10/06/25 19:53 04:54 04:55 WBC 7.9 RBC 4.05 L Hgb 12.7 L Hct 38.7 L MCV 95.6 MCH 31.4 MCHC 32.8 RDW 13.3 Plt Count 300 MPV 9.0 L Immature Gran % (Auto) 0.4 Neut % (Auto) 79.6 H Lymph % (Auto) 12.9 L [place] % (Auto) 7.1 Eos % (Auto) 0.0 Baso % (Auto) 0.0 Lymph # (Auto) 1.0 L [place] # (Auto) 0.6 Eos # (Auto) 0.0 Baso # (Auto) 0.0 Abs Immat Gran (auto) 0.03 Absolute Neuts (auto) 6.3 Absolute Nucleated RBC 0.000 Nucleated RBC % (auto) 0.0 Sodium 140 Potassium 4.0 Chloride 106 Carbon Dioxide 22 Anion Gap 16 BUN 16 Creatinine 0.98 Estim Creat Clear Calc 96.8 Estimated GFR > 60 Random Glucose 158 H Estimat Average Glucose Hemoglobin A1c % Calcium 8.5 Total Bilirubin 0.3 AST 55 H ALT 32 Alkaline Phosphatase 96 Total Protein 7.4 Albumin 4.1 Triglycerides Cholesterol LDL Cholesterol, Calc HDL Cholesterol Urine Color Yellow Urine Appearance Clear Urine pH 5.5 Ur Specific Panther >= 1.030 H Urine Protein Trace Urine Glucose (UA) Negative Urine Ketones Trace Urine Blood Negative Urine Nitrite Negative Ur Leukocyte Esterase Small (1+) H Urine RBC 0-2 Urine WBC 11-20 H Ur Squamous Epith Cells 0-2 Urine Bacteria None Seen Hyaline Casts 0-2 Urine Opiates Screen Not Detected Ur Buprenorphine Scrn Not Detected Ur Oxycodone Screen Not Detected Urine Methadone Screen Not Detected Urine Fentanyl Screen Not Detected Ur Barbiturates Screen Not Detected Ur Phencyclidine Scrn Not Detected Ur Amphetamines Screen Not Detected U Benzodiazepines Scrn Not Detected Urine Cocaine Screen POSITIVE H U Marijuana (THC) Screen POSITIVE H Ethyl Alcohol 134 10/07/25 07:54 WBC RBC Hgb Hct MCV MCH MCHC RDW Plt Count MPV Immature Gran % (Auto) Neut % (Auto) Lymph % (Auto) [place] % (Auto) Eos % (Auto) Baso % (Auto) Lymph # (Auto) [place] # (Auto) Eos # (Auto) Baso # (Auto) Abs Immat Gran (auto) Absolute Neuts (auto) Absolute Nucleated RBC Nucleated RBC % (auto) Sodium 140 Potassium 4.1 Chloride 108 Carbon Dioxide 25 Anion Gap 11 L BUN 11 Creatinine 0.95 Estim Creat Clear Calc 98.0 Estimated GFR > 60 Random Glucose 110 Estimat Average Glucose 120 Hemoglobin A1c % 5.8 Calcium 8.9 Total Bilirubin 0.3 AST 39 H ALT 31 Alkaline Phosphatase 94 Total Protein 7.3 Albumin 3.8 Triglycerides 102 Cholesterol 148 LDL Cholesterol, Calc 90 HDL Cholesterol 38 L Urine Color Urine Appearance Urine pH Ur Specific Panther Urine Protein Urine Glucose (UA) Urine Ketones Urine Blood Urine Nitrite Ur Leukocyte Esterase Urine RBC Urine WBC Ur Squamous Epith Cells Urine Bacteria Hyaline Casts Urine Opiates Screen Ur Buprenorphine Scrn Ur Oxycodone Screen Urine Methadone Screen Urine Fentanyl Screen Ur Barbiturates Screen Ur Phencyclidine Scrn Ur Amphetamines Screen U Benzodiazepines Scrn Urine Cocaine Screen U Marijuana (THC) Screen Ethyl Alcohol Medications Medications Current Medications Acetaminophen (Acetaminophen 325 Mg Tablet) 650 mg PO Q6H PRN PRN Reason: Headache/Pain, Scale 1-10 Al Hydroxide/Mg Hydroxide (Magnesium Hydrox/Alum Hydrox 30 Ml Oral.Susp) 30 ml PO Q6H PRN PRN Reason: Heartburn/Nausea Diphenhydramine HCl (Diphenhydramine Hcl 25 Mg Capsule) 100 mg PO BEDTIME [facility] Last Admin: 10/06/25 21:07 Dose: 100 mg Fluticasone Propionate (Fluticasone Propionate Nasal 16 Gm [place]) 2 spray NOSTRIL-B DAILY PRN PRN Reason: Nasal Congestion Hydroxyzine HCl (Hydroxyzine Hcl 25 Mg Tablet) 25 mg PO Q6H PRN PRN Reason: mild anxiety Lorazepam (Lorazepam 1 Mg Tablet) 1 mg PO Q2H PRN PRN Reason: CIWA 8-11 Lorazepam (Lorazepam 1 Mg Tablet) 2 mg PO Q2H PRN PRN Reason: CIWA 12-15 Lorazepam (Lorazepam 1 Mg Tablet) 3 mg PO Q2H PRN PRN Reason: CIWA > 15, and call MD Magnesium Hydroxide (Milk Of Magnesia 30 Ml Oral.Susp) 30 ml PO DAILY PRN PRN Reason: Constipation Nicotine (Nicotine 21 Mg Patch.Td24) 21 mg TRANSDERMA DAILY TORRES Nicotine Polacrilex (Nicotine Polacrilex 2 Mg Gum) 4 mg BUCCAL Q2H PRN PRN Reason: Nicotine Cravings Olanzapine (Olanzapine 5 Mg Tablet) 5 mg PO Q4H PRN PRN Reason: agitation Thiamine HCl (Thiamine Hcl 100 Mg Tablet) 100 mg PO DAILY TORRES Trazodone HCl (Trazodone Hcl 50 Mg Tablet) 50 mg PO BEDTIME MRX1 PRN PRN Reason: Insomnia Ziprasidone (Ziprasidone 80 Mg Capsule) 80 mg PO BEDTIME [facility] Last Admin: 10/06/25 21:07 Dose: 80 mg Allergies Allergies Allergy/AdvReac Type Severity Reaction Status Date / Time No Known Allergies (No Known Allergy Verified 10/05/25 19:02 Allergies*) Assessment & Plan Assessment & Plan (1) MDD (major depressive disorder): Status: Acute Code(s): F32.9 - Major depressive disorder, single episode, unspecified (2) Post-traumatic stress disorder, chronic: Status: Acute Code(s): F43.12 - Post-traumatic stress disorder, chronic (3) Cocaine use disorder: Status: Acute Code(s): F14.10 - Cocaine abuse, uncomplicated (4) Alcohol use disorder: Status: Acute Code(s): F10.90 - Alcohol use, unspecified, uncomplicated Plan Patient is a 50 year old male with hx of MDD, PTSD, opioid use d/o, cocaine use d/o and alcohol use d/o who presented to ER d/t suicidal and homicidal ideation with no plan secondary to chronic housing instability and polysubstance use. Plan: CV 15 minute safety checks Continue home medications Obtain collateral Encourage groups Referral to outpatient psychiatric providers Referral to substance abuse program Discharge planning 10/07: Keeping to self. Patient reports feeling anxious about where I'm going to go after here ; Patient reports he is feeling a little better ; focused on going to a substance abuse program. denies SI/HI/VH/AH. He reports sleeping well last night. denies any withdrawal symptoms; DC CIWA. encouraged to attend groups. continue tx plan. Patient educated on: diagnosis, medication risk/benefits and therapeutic strategies Reason for continued inpatient stay Substantial Risk for: med/psych decompensation Time Spent With Patient Time: Total time managing care of this patient today _20___ minutes.
[2025-10-07 20:00] VITALS: BP 139/74; PULSE 87; RESP 16; TEMP 36.8; O2SAT 98
[2025-10-08 08:00] VITALS: BP 114/71; PULSE 82; RESP 16; TEMP 36.8; O2SAT 94
[2025-10-08 20:00] VITALS: BP 139/85; PULSE 88; RESP 18; TEMP 36.4; O2SAT 97
--- NOTE | 2025-10-08 23:25 | P.PNPSI_ITS ---
Subjective Subjective Date of Service: 10/08/25 Reason For Visit: SI Subjective Notes: Conditional Voluntary Healthcare Proxy: No Guardianship: No Medical Problems Affecting Mental Status: No Interim History: Medical record and nursing notes reviewed; case discussed during rounds with team/nursing staff, and met with patient for supportive therapy/psychoeducation, as well as medication management. Met with patient in his room, he is working on the menu, passive engaging in conversation. Appears to be guarded, superficial, everything is good. I am good . Denies depression or anxiety, denies other safety concerns. Change nicotine patch to p.r.n., patient reported that he does not smoke or use it. Mostly keeps to himself, underlying irritability. Nursing patient slept for 8 hours, worry about placement. Medication Compliance: Yes Side effects from medications: No Attending Groups: No Review of Systems Acute medical concerns: No Medical Review of Systems: unchanged Review of Systems Review of Systems Denies any shortness of breath, chest pain, headaches, dysuria, abdominal pain or discomfort, nausea, vomiting or diarrhea. Denies fever or chills. Mental Status Exam Mental Status Exam Narrative: Pt is alert and oriented; behavior is passive cooperative; somewhat guarded, dressed in casual attire; mood is described as good ; eye contact appropriate when he wants to; Speech is normal rate, volume and not pressured; thought process is organized and goal directed; Thought content is on tx; denies SI/HI/VH/AH. Diagnostics Vital Signs (24Hr): Vital Signs - 24 hr 10/08/25 08:00 10/08/25 20:00 Temperature 98.3 F 97.5 F Pulse Rate 82 88 Respiratory Rate 16 18 Blood Pressure 114/71 139/85 Pulse Oximetry 94 97 Oxygen Delivery Method Room Air Room Air BMI result Body Mass Index 34.5 Labs 10/05/25 19:53 10/07/25 07:54 Labs: Laboratory Results - last 48 hr 10/07/25 07:54 Sodium 140 Potassium 4.1 Chloride 108 Carbon Dioxide 25 Anion Gap 11 L BUN 11 Creatinine 0.95 Estim Creat Clear Calc 98.0 Estimated GFR > 60 Random Glucose 110 Estimat Average Glucose 120 Hemoglobin A1c % 5.8 Calcium 8.9 Total Bilirubin 0.3 AST 39 H ALT 31 Alkaline Phosphatase 94 Total Protein 7.3 Albumin 3.8 Triglycerides 102 Cholesterol 148 LDL Cholesterol, Calc 90 HDL Cholesterol 38 L Medications Medications Current Medications Acetaminophen (Acetaminophen 325 Mg Tablet) 650 mg PO Q6H PRN PRN Reason: Headache/Pain, Scale 1-10 Al Hydroxide/Mg Hydroxide (Magnesium Hydrox/Alum Hydrox 30 Ml Oral.Susp) 30 ml PO Q6H PRN PRN Reason: Heartburn/Nausea Diphenhydramine HCl (Diphenhydramine Hcl 25 Mg Capsule) 100 mg PO BEDTIME [facility] Last Admin: 10/08/25 21:18 Dose: 100 mg Fluticasone Propionate (Fluticasone Propionate Nasal 16 Gm [place]) 2 spray NOSTRIL-B DAILY PRN PRN Reason: Nasal Congestion Hydroxyzine HCl (Hydroxyzine Hcl 25 Mg Tablet) 25 mg PO Q6H PRN PRN Reason: mild anxiety Magnesium Hydroxide (Milk Of Magnesia 30 Ml Oral.Susp) 30 ml PO DAILY PRN PRN Reason: Constipation Nicotine (Nicotine 21 Mg Patch.Td24) 21 mg TRANSDERMA DAILY PRN PRN Reason: Nicotine craving Nicotine Polacrilex (Nicotine Polacrilex 2 Mg Gum) 4 mg BUCCAL Q2H PRN PRN Reason: Nicotine Cravings Olanzapine (Olanzapine 5 Mg Tablet) 5 mg PO Q4H PRN PRN Reason: agitation Omeprazole (Omeprazole 40 Mg Capsule.Dr) 40 mg PO DAILY@0630 [facility] Last Admin: 10/08/25 06:38 Dose: 40 mg Trazodone HCl (Trazodone Hcl 50 Mg Tablet) 50 mg PO BEDTIME MRX1 PRN PRN Reason: Insomnia Ziprasidone (Ziprasidone 80 Mg Capsule) 80 mg PO BEDTIME [facility] Last Admin: 10/08/25 21:18 Dose: 80 mg Allergies Allergies Allergy/AdvReac Type Severity Reaction Status Date / Time No Known Allergies (No Known Allergy Verified 10/05/25 19:02 Allergies*) Assessment & Plan Assessment & Plan (1) MDD (major depressive disorder): Status: Acute Code(s): F32.9 - Major depressive disorder, single episode, unspecified (2) Post-traumatic stress disorder, chronic: Status: Acute Code(s): F43.12 - Post-traumatic stress disorder, chronic (3) Cocaine use disorder: Status: Acute Code(s): F14.10 - Cocaine abuse, uncomplicated (4) Alcohol use disorder: Status: Acute Code(s): F10.90 - Alcohol use, unspecified, uncomplicated Plan Patient is a 50 year old male with hx of MDD, PTSD, opioid use d/o, cocaine use d/o and alcohol use d/o who presented to ER d/t suicidal and homicidal ideation with no plan secondary to chronic housing instability and polysubstance use. Plan: CV 15 minute safety checks Continue home medications Obtain collateral Encourage groups Referral to outpatient psychiatric providers Referral to substance abuse program Discharge planning 10/07: Keeping to self. Patient reports feeling anxious about where I'm going to go after here ; Patient reports he is feeling a little better ; focused on going to a substance abuse program. denies SI/HI/VH/AH. He reports sleeping well last night. denies any withdrawal symptoms; DC CIWA. encouraged to attend groups. continue tx plan. 10/08/25: Met with patient in his room, he is working on the menu, passive engaging in conversation. Appears to be guarded, superficial, everything is good. I am good . Denies depression or anxiety, denies other safety concerns. Change nicotine patch to p.r.n., patient reported that he does not smoke or use it. Mostly keeps to himself, underlying irritability. Nursing patient slept for 8 hours, worry about placement. Patient educated on: diagnosis, medication risk/benefits, substance abuse and therapeutic strategies Informed Consent: further education needed Reason for continued inpatient stay Substantial Risk for: med/psych decompensation Time Spent With Patient Time: Total time managing care of this patient today ____ minutes.
[2025-10-09 08:00] VITALS: BP 123/74; PULSE 78; RESP 14; TEMP 36.7; O2SAT 96
[2025-10-09 20:00] VITALS: BP 125/82; PULSE 96; RESP 16; TEMP 36.7; O2SAT 97
--- NOTE | 2025-10-09 21:48 | P.PNPSI_ITS ---
Subjective Subjective Date of Service: 10/09/25 Reason For Visit: SI Subjective Notes: Conditional Voluntary Healthcare Proxy: No Guardianship: No Medical Problems Affecting Mental Status: No Interim History: Medical record and nursing notes reviewed; case discussed during rounds with team/nursing staff, and met with patient for supportive therapy/psychoeducation, as well as medication management. Patient visible, watching TV, social and appropriate with peers and staff. He apologies for irritated mood yesterday toward this provider but I feel happy and much better today. Medication is helpful . He says he is not sure which program he will be accepted to but if there is nothing, he hope at least to get to the [facility] for [facility]care discharge. He appears very bright, talkative, no SI/SIB/HI/AVH.Denies anxiety or depression. Medication Compliance: Yes Side effects from medications: No Attending Groups: Yes Review of Systems Acute medical concerns: No Medical Review of Systems: unchanged Review of Systems Review of Systems Denies any shortness of breath, chest pain, headaches, dysuria, abdominal pain or discomfort, nausea, vomiting or diarrhea. Denies fever or chills. Mental Status Exam Mental Status Exam Narrative: Pt is alert and oriented; behavior is approachable, pleasant and cooperative; less guarded, dressed in casual attire; mood is described as good ; eye contact appropriate; Speech is normal rate, volume and not pressured; thought process is organized and goal directed; Thought content is on tx; denies SI/HI/VH/AH. Diagnostics Vital Signs (24Hr): Vital Signs - 24 hr 10/09/25 08:00 10/09/25 20:00 Temperature 98.1 F 98.0 F Pulse Rate 78 96 Respiratory Rate 14 16 Blood Pressure 123/74 125/82 Pulse Oximetry 96 97 Oxygen Delivery Method Room Air Room Air BMI result Body Mass Index 34.5 Labs 10/05/25 19:53 10/07/25 07:54 Medications Medications Current Medications Acetaminophen (Acetaminophen 325 Mg Tablet) 650 mg PO Q6H PRN PRN Reason: Headache/Pain, Scale 1-10 Al Hydroxide/Mg Hydroxide (Magnesium Hydrox/Alum Hydrox 30 Ml Oral.Susp) 30 ml PO Q6H PRN PRN Reason: Heartburn/Nausea Diphenhydramine HCl (Diphenhydramine Hcl 25 Mg Capsule) 100 mg PO BEDTIME TORRES Last Admin: 10/09/25 20:04 Dose: 100 mg Fluticasone Propionate (Fluticasone Propionate Nasal 16 Gm [place]) 2 spray NOSTRIL-B DAILY PRN PRN Reason: Nasal Congestion Hydroxyzine HCl (Hydroxyzine Hcl 25 Mg Tablet) 25 mg PO Q6H PRN PRN Reason: mild anxiety Magnesium Hydroxide (Milk Of Magnesia 30 Ml Oral.Susp) 30 ml PO DAILY PRN PRN Reason: Constipation Nicotine (Nicotine 21 Mg Patch.Td24) 21 mg TRANSDERMA DAILY PRN PRN Reason: Nicotine craving Nicotine Polacrilex (Nicotine Polacrilex 2 Mg Gum) 4 mg BUCCAL Q2H PRN PRN Reason: Nicotine Cravings Olanzapine (Olanzapine 5 Mg Tablet) 5 mg PO Q4H PRN PRN Reason: agitation Omeprazole (Omeprazole 40 Mg Capsule.Dr) 40 mg PO DAILY@0630 [facility] Last Admin: 10/09/25 06:24 Dose: 40 mg Trazodone HCl (Trazodone Hcl 50 Mg Tablet) 50 mg PO BEDTIME MRX1 PRN PRN Reason: Insomnia Ziprasidone (Ziprasidone 80 Mg Capsule) 80 mg PO BEDTIME [facility] Last Admin: 10/09/25 20:04 Dose: 80 mg Allergies Allergies Allergy/AdvReac Type Severity Reaction Status Date / Time No Known Allergies (No Known Allergy Verified 10/05/25 19:02 Allergies*) Assessment & Plan Assessment & Plan (1) MDD (major depressive disorder): Status: Acute Code(s): F32.9 - Major depressive disorder, single episode, unspecified (2) Post-traumatic stress disorder, chronic: Status: Acute Code(s): F43.12 - Post-traumatic stress disorder, chronic (3) Cocaine use disorder: Status: Acute Code(s): F14.10 - Cocaine abuse, uncomplicated (4) Alcohol use disorder: Status: Acute Code(s): F10.90 - Alcohol use, unspecified, uncomplicated Plan Patient is a 50 year old male with hx of MDD, PTSD, opioid use d/o, cocaine use d/o and alcohol use d/o who presented to ER d/t suicidal and homicidal ideation with no plan secondary to chronic housing instability and polysubstance use. Plan: CV 15 minute safety checks Continue home medications Obtain collateral Encourage groups Referral to outpatient psychiatric providers Referral to substance abuse program Discharge planning 10/07: Keeping to self. Patient reports feeling anxious about where I'm going to go after here ; Patient reports he is feeling a little better ; focused on going to a substance abuse program. denies SI/HI/VH/AH. He reports sleeping well last night. denies any withdrawal symptoms; DC CIWA. encouraged to attend groups. continue tx plan. 10/08/25: Met with patient in his room, he is working on the menu, passive engaging in conversation. Appears to be guarded, superficial, everything is good. I am good . Denies depression or anxiety, denies other safety concerns. Change nicotine patch to p.r.n., patient reported that he does not smoke or use it. Mostly keeps to himself, underlying irritability. Nursing patient slept for 8 hours, worry about placement. 10/09/25: Patient visible, watching TV, social and appropriate with peers and staff. He apologies for irritated mood yesterday toward this provider but I feel happy and much better today. Medication is helpful . He says he is not sure which program he will be accepted to but if there is nothing, he hope at least to get to [facility] for [facility]care discharge. He appears very bright, talkative, no SI/SIB/HI/AVH.Denies anxiety or depression, slept for 8 hours. Patient educated on: diagnosis, medication risk/benefits, substance abuse and therapeutic strategies Informed Consent: understands Reason for continued inpatient stay Substantial Risk for: med/psych decompensation Time Spent With Patient Time: Total time managing care of this patient today ____ minutes.
[2025-10-10 07:38] VITALS: BP 128/81; PULSE 84; RESP 18; TEMP 36.7; O2SAT 98
--- NOTE | 2025-10-10 12:48 | HO.PSYCHPN ---
Subjective Subjective Date of Service: 10/10/25 Reason For Visit: SI Subjective Notes: Conditional Voluntary Interim History: Keeping to self. Patient reports he feels his mood has improved; pt stated, I'm doing better . denies SI/HI/VH/AH. Per nursing, slept 8 hours last night. [employer] workerAmanda, notified pt was referred to various program; if no available bed, pt is aware plan is for discharge to long term. Continue tx plan. Medication Compliance: Yes Side effects from medications: No Attending Groups: No Mental Status Exam Mental Status Exam Narrative: Pt is alert and oriented; behavior is cooperative and calm; dressed in casual attire; mood is described as better ; eye contact appropriate; Speech is normal rate, volume and not pressured; thought process is organized and goal directed; Thought content is on discharge; denies SI/HI/VH/AH. Diagnostics Vital Signs (24Hr): Vital Signs - 24 hr 10/09/25 20:00 10/10/25 07:38 Temperature 98.0 F 98.1 F Pulse Rate 96 84 Respiratory Rate 16 18 Blood Pressure 125/82 128/81 Pulse Oximetry 97 98 Oxygen Delivery Method Room Air Room Air BMI result Body Mass Index 34.5 Labs 10/05/25 19:53 10/07/25 07:54 Medications Medications Current Medications Acetaminophen (Acetaminophen 325 Mg Tablet) 650 mg PO Q6H PRN PRN Reason: Headache/Pain, Scale 1-10 Al Hydroxide/Mg Hydroxide (Magnesium Hydrox/Alum Hydrox 30 Ml Oral.Susp) 30 ml PO Q6H PRN PRN Reason: Heartburn/Nausea Diphenhydramine HCl (Diphenhydramine Hcl 25 Mg Capsule) 100 mg PO BEDTIME TORRES Last Admin: 10/09/25 20:04 Dose: 100 mg Fluticasone Propionate (Fluticasone Propionate Nasal 16 Gm [place]) 2 spray NOSTRIL-B DAILY PRN PRN Reason: Nasal Congestion Hydroxyzine HCl (Hydroxyzine Hcl 25 Mg Tablet) 25 mg PO Q6H PRN PRN Reason: mild anxiety Magnesium Hydroxide (Milk Of Magnesia 30 Ml Oral.Susp) 30 ml PO DAILY PRN PRN Reason: Constipation Nicotine (Nicotine 21 Mg Patch.Td24) 21 mg TRANSDERMA DAILY PRN PRN Reason: Nicotine craving Nicotine Polacrilex (Nicotine Polacrilex 2 Mg Gum) 4 mg BUCCAL Q2H PRN PRN Reason: Nicotine Cravings Olanzapine (Olanzapine 5 Mg Tablet) 5 mg PO Q4H PRN PRN Reason: agitation Omeprazole (Omeprazole 40 Mg Capsule.) 40 mg PO DAILY@0630 [facility] Last Admin: 10/10/25 06:30 Dose: 40 mg Trazodone HCl (Trazodone Hcl 50 Mg Tablet) 50 mg PO BEDTIME MRX1 PRN PRN Reason: Insomnia Ziprasidone (Ziprasidone 80 Mg Capsule) 80 mg PO BEDTIME [facility] Last Admin: 10/09/25 20:04 Dose: 80 mg Allergies Allergies Allergy/AdvReac Type Severity Reaction Status Date / Time No Known Allergies (No Known Allergy Verified 10/05/25 19:02 Allergies*) Assessment & Plan Assessment & Plan (1) MDD (major depressive disorder): Status: Acute Code(s): F32.9 - Major depressive disorder, single episode, unspecified (2) Post-traumatic stress disorder, chronic: Status: Acute Code(s): F43.12 - Post-traumatic stress disorder, chronic (3) Cocaine use disorder: Status: Acute Code(s): F14.10 - Cocaine abuse, uncomplicated (4) Alcohol use disorder: Status: Acute Code(s): F10.90 - Alcohol use, unspecified, uncomplicated Plan Patient is a 50 year old male with hx of MDD, PTSD, opioid use d/o, cocaine use d/o and alcohol use d/o who presented to ER d/t suicidal and homicidal ideation with no plan secondary to chronic housing instability and polysubstance use. Plan: CV 15 minute safety checks Continue home medications Obtain collateral Encourage groups Referral to outpatient psychiatric providers Referral to substance abuse program Discharge planning 10/07: Keeping to self. Patient reports feeling anxious about where I'm going to go after here ; Patient reports he is feeling a little better ; focused on going to a substance abuse program. denies SI/HI/VH/AH. He reports sleeping well last night. denies any withdrawal symptoms; DC CIWA. encouraged to attend groups. continue tx plan. 10/08/25: Met with patient in his room, he is working on the menu, passive engaging in conversation. Appears to be guarded, superficial, everything is good. I am good . Denies depression or anxiety, denies other safety concerns. Change nicotine patch to p.r.n., patient reported that he does not smoke or use it. Mostly keeps to himself, underlying irritability. Nursing patient slept for 8 hours, worry about placement. 10/09/25: Patient visible, watching TV, social and appropriate with peers and staff. He apologies for irritated mood yesterday toward this provider but I feel happy and much better today. Medication is helpful . He says he is not sure which program he will be accepted to but if there is nothing, he hope at least to get to the long term for aftercare discharge. He appears very bright, talkative, no SI/SIB/HI/AVH.Denies anxiety or depression, slept for 8 hours. 10/10: Keeping to self. Patient reports he feels his mood has improved; pt stated, I'm doing better . denies SI/HI/VH/AH. Per nursing, slept 8 hours last night. [employer] workerAmanda, notified pt was referred to various program; if no available bed, pt is aware plan is for discharge to long term. Continue tx plan. Patient educated on: diagnosis and medication risk/benefits Reason for continued inpatient stay Substantial Risk for: med/psych decompensation Time Spent With Patient Time: Total time managing care of this patient today __20__ minutes.
[2025-10-10 20:00] VITALS: BP 118/76; PULSE 120; RESP 18; TEMP 36.4; O2SAT 96
[2025-10-11 07:51] VITALS: BP 114/72; PULSE 92; RESP 18; TEMP 36.7; O2SAT 96
--- NOTE | 2025-10-11 09:53 | PM.PSYDC ---
DS: Providers Provider Date of Service: 10/11/25 Date of admission: 10/06/25 12:30 Date of discharge: 10/11/25 Primary care physician: Roderick Neely MD Admitting clinician: Tamiko Christina Attending physician on admission: Julio Lynch Attending physician on discharge: Julio Lynch Discharging clinician: Tamiko Christina DS: Diagnosis Discharge Diagnosis (1) MDD (major depressive disorder): Status: Acute (2) Post-traumatic stress disorder, chronic: Status: Acute (3) Cocaine use disorder: Status: Acute (4) Alcohol use disorder: Status: Acute DS: Medications Discharge Medications Home Medications: Home Medications ?Medication ?Instructions ?Recorded ?Confirmed diphenhydramine HCl 50 mg capsule 100 mg PO BEDTIME 10/05/25 10/05/25 ziprasidone HCl 80 mg capsule 80 mg PO BEDTIME 10/05/25 10/05/25 (Geodon) fluticasone propionate 50 2 spray intranasal DAILY PRN Nasal 10/06/25 10/06/25 mcg/actuation nasal Congestion spray,suspension loratadine 10 mg tablet 10 mg PO DAILY PRN allergies 10/06/25 10/06/25 omeprazole 40 mg capsule,delayed 40 mg PO DAILY 10/06/25 10/06/25 release Mental Status Exam Mental Status Exam Narrative: Pt is alert and oriented; behavior is cooperative and calm; dressed in casual attire; mood is described as good ; eye contact appropriate; Speech is normal rate, volume and not pressured; thought process is organized and goal directed; Thought content is on discharge; denies SI/HI/VH/AH. Data Data Completed and Pending Completed studies during hospitalization [Text1]: 10/05/25 10/06/25 10/06/25 19:53 04:54 04:55 WBC 7.9 RBC 4.05 L Hgb 12.7 L Hct 38.7 L MCV 95.6 MCH 31.4 MCHC 32.8 RDW 13.3 Plt Count 300 MPV 9.0 L Immature Gran % (Auto) 0.4 Neut % (Auto) 79.6 H Lymph % (Auto) 12.9 L [place] % (Auto) 7.1 Eos % (Auto) 0.0 Baso % (Auto) 0.0 Lymph # (Auto) 1.0 L [place] # (Auto) 0.6 Eos # (Auto) 0.0 Baso # (Auto) 0.0 Abs Immat Gran (auto) 0.03 Absolute Neuts (auto) 6.3 Absolute Nucleated RBC 0.000 Nucleated RBC % (auto) 0.0 Sodium 140 Potassium 4.0 Chloride 106 Carbon Dioxide 22 Anion Gap 16 BUN 16 Creatinine 0.98 Estim Creat Clear Calc 96.8 Estimated GFR > 60 Random Glucose 158 H Estimat Average Glucose Hemoglobin A1c % Calcium 8.5 Total Bilirubin 0.3 AST 55 H ALT 32 Alkaline Phosphatase 96 Total Protein 7.4 Albumin 4.1 Triglycerides Cholesterol LDL Cholesterol, Calc HDL Cholesterol Urine Color Yellow Urine Appearance Clear Urine pH 5.5 Ur Specific [place] >= 1.030 H Urine Protein Trace Urine Glucose (UA) Negative Urine Ketones Trace Urine Blood Negative Urine Nitrite Negative Ur Leukocyte Esterase Small (1+) H Urine RBC 0-2 Urine WBC 11-20 H Ur Squamous Epith Cells 0-2 Urine Bacteria None Seen Hyaline Casts 0-2 Urine Opiates Screen Not Detected Ur Buprenorphine Scrn Not Detected Ur Oxycodone Screen Not Detected Urine Methadone Screen Not Detected Urine Fentanyl Screen Not Detected Ur Barbiturates Screen Not Detected Ur Phencyclidine Scrn Not Detected Ur Amphetamines Screen Not Detected U Benzodiazepines Scrn Not Detected Urine Cocaine Screen POSITIVE H U Marijuana (THC) Screen POSITIVE H Ethyl Alcohol 134 10/07/25 07:54 WBC RBC Hgb Hct MCV MCH MCHC RDW Plt Count MPV Immature Gran % (Auto) Neut % (Auto) Lymph % (Auto) [place] % (Auto) Eos % (Auto) Baso % (Auto) Lymph # (Auto) [place] # (Auto) Eos # (Auto) Baso # (Auto) Abs Immat Gran (auto) Absolute Neuts (auto) Absolute Nucleated RBC Nucleated RBC % (auto) Sodium 140 Potassium 4.1 Chloride 108 Carbon Dioxide 25 Anion Gap 11 L BUN 11 Creatinine 0.95 Estim Creat Clear Calc 98.0 Estimated GFR > 60 Random Glucose 110 Estimat Average Glucose 120 Hemoglobin A1c % 5.8 Calcium 8.9 Total Bilirubin 0.3 AST 39 H ALT 31 Alkaline Phosphatase 94 Total Protein 7.3 Albumin 3.8 Triglycerides 102 Cholesterol 148 LDL Cholesterol, Calc 90 HDL Cholesterol 38 L Urine Color Urine Appearance Urine pH Ur Specific [place] Urine Protein Urine Glucose (UA) Urine Ketones Urine Blood Urine Nitrite Ur Leukocyte Esterase Urine RBC Urine WBC Ur Squamous Epith Cells Urine Bacteria Hyaline Casts Urine Opiates Screen Ur Buprenorphine Scrn Ur Oxycodone Screen Urine Methadone Screen Urine Fentanyl Screen Ur Barbiturates Screen Ur Phencyclidine Scrn Ur Amphetamines Screen U Benzodiazepines Scrn Urine Cocaine Screen U Marijuana (THC) Screen Ethyl Alcohol 10/06/25 Unknown Urine clean catch - Clean Catch Midstream Urine Culture - Final DS: Summary Hospital Course Hospital Course: Patient is a 50 year old male with hx of MDD, PTSD, opioid use d/o, cocaine use d/o and alcohol use d/o who presented to ER d/t suicidal and homicidal ideation with no plan secondary to chronic housing instability and polysubstance use. Per crisis report, patient was brought in by ambulance to ER secondary to endorsing SI/HI with no plan. Patient reported using cocaine yesterday and alcohol prior to arrival. During assessment, patient endorses SI with any way I could do it , as a plan. Endorses HI at times with no plan or intent. Denies AH/VH. History of 2 prior suicide attempts in 2004 in 2010. History of chronic housing instability and polysubstance use. Patient reports he has been not taking his psychiatric medications for the last 2 weeks and would like to be restarted. History of multiple inpatient psychiatric hospitalizations. History of detox admissions. Utox positive for cocaine, cannabis and alcohol. He reports sleep and appetite are good. During admission assessment, pt presents alert and oriented x3. calm and cooperative. Patient reports feeling depressed ; pt stated, My situation I'm in is making me suicidal. I'm going through a lot of mental issues with no where to go. I didn't have my meds for 2 weeks after I got out of correction. I left the [employer] because it make me feel like I was in retirement . Patient reports suicidal ideation with no plan. He reports thoughts of hurting people ; pt stated, I feel paranoid about people trying to hurt me. That's when I get those thoughts . denies AH/VH. Patient reports he was released from correction a couple of weeks ago and has not been taking his medications for the last 2 weeks. Patient reports he wants to get into a program and be restarted on my meds . Plan: CV 15 minute safety checks Continue home medications Obtain collateral Encourage groups Referral to outpatient psychiatric providers Referral to substance abuse program Discharge planning Keeping to self. Patient reports feeling anxious about where I'm going to go after here ; Patient reports he is feeling a little better ; focused on going to a substance abuse program. denies SI/HI/VH/AH. He reports sleeping well last night. denies any withdrawal symptoms; DC CIWA. encouraged to attend groups. continue tx plan. Met with patient in his room, he is working on the menu, passive engaging in conversation. Appears to be guarded, superficial, everything is good. I am good . Denies depression or anxiety, denies other safety concerns. Change nicotine patch to p.r.n., patient reported that he does not smoke or use it. Mostly keeps to himself, underlying irritability. Nursing patient slept for 8 hours, worry about placement. Patient visible, watching TV, social and appropriate with peers and staff. He apologies for irritated mood yesterday toward this provider but I feel happy and much better today. Medication is helpful . He says he is not sure which program he will be accepted to but if there is nothing, he hope at least to get to [facility] for [facility]care discharge. He appears very bright, talkative, no SI/SIB/HI/AVH.Denies anxiety or depression, slept for 8 hours. Keeping to self. Patient reports he feels his mood has improved; pt stated, I'm doing better . denies SI/HI/VH/AH. Per nursing, slept 8 hours last night. shortage workerAmanda, notified pt was referred to various program; if no available bed, pt is aware plan is for discharge to [facility]. Continue tx plan. Patient continues to reports feeling good ; he is requesting to discharge today. Pt reports he plans on staying with his sister. denies SI/HI/VH/AH. Patient reports he plans on following up with outpatient providers. Status at Discharge Cognitive/behavioral status at discharge: Patient has insight and demonstrates good judgment in terms of wanting to pursue treatment. Patient has a safety plan that includes presenting to the closest ER or calling 911 if feeling unsafe. Functional status at discharge: independent ambulation Overall status at discharge: patient is back to baseline Time Spent with Patient Time attestation: Total time managing care of this patient today _20___ minutes. Time spent: Less than 30 minutes Discharge Plan Discharge Anticipated Discharge Date/Time: 10/11/25 11:00 Patient Disposition: Home, Self-Care Discharge Diagnosis: MDD, PTSD, opioid use d/o, cocaine use d/o, alcohol use d/o Referrals: [facility] (psychiatry, therapy services) [Other] - 1 Week Referral Note: hours are Friday-Friday 8am-8pm and weekends hours 9am-5pm Roderick Neely MD [Primary Care Provider, Internal Medicine] - 1 Week Discharge Medications: Continued ziprasidone HCl [Geodon] 80 mg Capsule 80 mg PO BEDTIME 30 Days Qty: 30 0RF Rx Instructions: give with food (meal/snack) diphenhydramine HCl 50 mg Capsule 100 mg PO BEDTIME 7 Days Qty: 14 0RF omeprazole 40 mg capsule,delayed release(DR/EC) 40 mg PO DAILY 30 Days Qty: 30 0RF Discontinued fluticasone propionate 50 mcg/actuation spray,suspension 2 spray intranasal DAILY PRN (Reason: Nasal Congestion) loratadine 10 mg tablet 10 mg PO DAILY PRN (Reason: allergies) Discharge Orders: Discharge Order (Routine); Ordered 10/11/25 Ordered By: Tamiko Christina Diet: Regular diet Activity on Discharge: As tolerated Stand Alone Forms: Patient Portal Discharge page, Community Support Print Language: [place] Care Plan Goals: Maintain mood and safe behaviors Take medications as prescribed Continue to pursue sobriety Practice coping skills Continue with outpatient providers and reach out to them as needed Health Concerns: Mood stability and behaviors Sobriety Plan of Treatment: Follow up with your PCP, psychiatric provider and other outpatient providers regarding above concerns Take medications as prescribed Assessment: Patient has insight and demonstrates good judgment in terms of wanting to pursue treatment. Patient has a safety plan that includes presenting to the closest ER or calling 911 if feeling unsafe.
[2025-10-11] MEDS: Naloxone HCl Nasal TAKE HOME 4 MG SPRAY 8 MG NOSTRILALT (10:00)
== END 2025-10-11 11:00 | disposition home or self-care (01) | DRG 754 ==
LOC: HO.ED 21:37 → HO.PADLT16 10-06 13:21
PROVIDERS: Admitting Provider Registered Nurse; Emergency Provider Emergency Medicine; PCP Internal Medicine; Responsible Provider Registered Nurse; Visit Provider Psychiatry & Neurology Psychiatry
DX: F32.9 Major depressive disorder, single episode, unspecified (principal); R45.851 Suicidal ideations; R45.850 Homicidal ideations; F43.12 Post-traumatic stress disorder, chronic; Y90.6 Blood alcohol level of 120-199 mg/100 ml; F11.90 Opioid use, unspecified, uncomplicated; F10.90 Alcohol use, unspecified, uncomplicated; F14.10 Cocaine abuse, uncomplicated; F17.210 Nicotine dependence, cigarettes, uncomplicated; Z71.6 Tobacco abuse counseling
CPT/HCPCS: 36415; 80053; 80061; 80307; 81001; 83036; 85025; 87086; 93005; 99285; S9485

== ENCOUNTER → 2025-10-06 11:00 | Outpatient (BNV) | payer OTHER, SELFPAY | PROVIDERS: Emergency Provider Emergency Medicine; PCP Internal Medicine; Visit Provider Internal Medicine Cardiovascular Disease | DX: R00.0 Tachycardia, unspecified (principal) | CPT/HCPCS: 93010 ==

== ENCOUNTER → 2025-10-06 12:30 | Outpatient (BNV) | payer OTHER, SELFPAY | PROVIDERS: Admitting Provider Registered Nurse; Emergency Provider Emergency Medicine; PCP Internal Medicine; Responsible Provider Registered Nurse; Visit Provider Nurse Practitioner Family | DX: F19.10 Other psychoactive substance abuse, uncomplicated (principal) | CPT/HCPCS: 99221 ==

== ENCOUNTER → 2025-10-06 12:30 | Outpatient (BNV) | payer OTHER, SELFPAY | PROVIDERS: Admitting Provider Registered Nurse; Emergency Provider Emergency Medicine; PCP Internal Medicine; Responsible Provider Registered Nurse; Visit Provider Registered Nurse | DX: F32.9 Major depressive disorder, single episode, unspecified (principal); F43.12 Post-traumatic stress disorder, chronic; F14.10 Cocaine abuse, uncomplicated; F10.90 Alcohol use, unspecified, uncomplicated | CPT/HCPCS: 99232 ==